=== PATIENT | male | born 1950 | race African-American/Black ===

== ENCOUNTER 2017-11-09 08:15 | Inpatient (IN) ==
[2017-11-09] MEDS ORDERED: MEPERIDINE 50 MG/1 ML VIAL IM STA (10:54)
[2017-11-09] MEDS ORDERED: MEPERIDINE 25 MG/1 ML VIAL ONE (10:56)
[2017-11-09 11:15] LABS: Basophils % 0.2 % (0.0-0.8); Eosinophils % 0.4 % (0.00-10.9); Hematocrit 40.5 VOL% (42.0-52.0); Hemoglobin 13.4 GM/DL (14.0-18.0); Immature Granulocytes % 0.3 %; Immature Granulocytes Absolute 0.03 #; Lymphocytes # 1.7 10*3/uL (1.4-4.0); Mean Corpuscular HGB Conc 33.1 GM/DL (32-36); Mean Corpuscular Hemoglobin 30 PG (27-34); Monocytes # 0.9 10*3/uL (0.11-0.8); Monocytes % 9.3 % (1.7-12.7); Neutrophils # 7.3 10*3/uL (1.4-7.4); Neutrophils % 72.8 % (38.7-73.9); Platelet Count 115 T/CUMM (130-400); Red Blood Count 4.45 MC/CUMM (3.8-5.5); Red Cell Distribution Width 14.3 % (9.3-17.3)
[2017-11-09 11:36] LABS: Albumin 3.4 G/DL (3.4-5.0); Bilirubin,Total 2.2 MG/DL (0.2-1.0); Calcium 8.8 MG/DL (8.5-10.1); Potassium 3.7 MMOL/L (3.5-5.1); Total Protein 7.4 G/DL (6.4-8.3)
[2017-11-09] MEDS ORDERED: GLUCAGON 1 MG VIAL IM PRN (13:07)
[2017-11-09] MEDS ORDERED: DEXTROSE 50% 25 GM/50 ML VIAL IV PRN (13:07)
[2017-11-09] MEDS: LEVOFLOXACIN INJ 750 MG in PREMIX 1 EACH IV SCH (14:26)
[2017-11-09] MEDS ORDERED: DOCUSATE SODIUM 100 MG CAPSULE PO PRN (15:27)
[2017-11-09] MEDS ORDERED: traZODone 50 MG TABLET PO PRN (15:27)
[2017-11-09] MEDS: MORPHINE 4 MG/1 ML VIAL IV PRN ×2 (16:03→21:30)
[2017-11-09] MEDS ORDERED: PHENOL 1.4% THROAT SPRAY 177 ML BOTTLE PO PRN (16:06)
[2017-11-09] MEDS: VANCOMYCIN INJ 1,500 MG in SODIUM CHLORIDE 0.9% 500 ML IV SCH (17:51)
[2017-11-09] MEDS: INSULIN REGULAR 100 UNIT/ML SUBCUT SCH ×2 (17:53→21:29)
[2017-11-09] MEDS: ENOXAPARIN 40 MG/0.4 ML SYRINGE SUBCUT SCH (21:30)
[2017-11-09] MEDS: ONDANSETRON 4 MG/2 ML VIAL IV PRN (21:35)
[2017-11-10] MEDS: VANCOMYCIN INJ 1,500 MG in SODIUM CHLORIDE 0.9% 500 ML IV SCH ×2 (03:29→18:31)
[2017-11-10] MEDS: ONDANSETRON 4 MG/2 ML VIAL IV PRN ×2 (06:22→22:00)
[2017-11-10] MEDS: MORPHINE 4 MG/1 ML VIAL IV PRN ×3 (06:26→21:56)
[2017-11-10] MEDS: GABAPENTIN 300 MG CAPSULE PO SCH (08:27)
[2017-11-10] MEDS: LISINOPRIL/HCTZ 20-25 MG TABLET PO SCH (08:27)
[2017-11-10] MEDS: PANTOPRAZOLE 40 MG TABLET PO SCH (08:27)
[2017-11-10] MEDS: FINASTERIDE 5 MG TABLET PO SCH (08:27)
[2017-11-10] MEDS ORDERED: BUPIVACAINE MPF 0.25% 30 ML VIAL ONE (08:36)
[2017-11-10] MEDS ORDERED: LIDOCAINE 1% 50 ML VIAL ONE (08:36)
[2017-11-10] MEDS ORDERED: Ritonavir [Norvir] 100 MG PO SCH (09:00)
[2017-11-10] MEDS ORDERED: ATAZANAVIR SULFATE 300 MG PO SCH (09:00)
[2017-11-10] MEDS ORDERED: Dolutegravir Sodium [Tivicay] PO SCH (09:00)
[2017-11-10] MEDS ORDERED: RILPIVIRINE HCL 25 MG PO SCH (09:00)
[2017-11-10 10:09] LABS: Basophils % 0.3 % (0.0-0.8); Eosinophils % 0.6 % (0.00-10.9); Hematocrit 41.4 VOL% (42.0-52.0); Immature Granulocytes % 0.4 %; Immature Granulocytes Absolute 0.03 #; Lymphocytes # 1.6 10*3/uL (1.4-4.0); Lymphocytes % 22.4 % (21.2-54.2); Mean Corpuscular HGB Conc 33.8 GM/DL (32-36); Mean Corpuscular Hemoglobin 30 PG (27-34); Mean Corpuscular Volume 89.4 FL (87-102); Mean Platelet Volume 13.6 FL (9.6-12.0); Monocytes # 0.7 10*3/uL (0.11-0.8); Monocytes % 9.7 % (1.7-12.7); Neutrophils # 4.7 10*3/uL (1.4-7.4); Neutrophils % 66.6 % (38.7-73.9); Platelet Count 126 T/CUMM (130-400); Red Blood Count 4.63 MC/CUMM (3.8-5.5); Red Cell Distribution Width 14.5 % (9.3-17.3); White Blood Count 7.1 T/CUMM (4-12)
[2017-11-10 10:46] LABS: Calcium 8.4 MG/DL (8.5-10.1); Osmolality,Calculated 284.3 MOS/KG (273-304); Potassium 4.1 MMOL/L (3.5-5.1); Thyroid Stimulating Hormone 3.55 uIU/ml (0.358-3.74)
[2017-11-10] MEDS: INSULIN REGULAR 100 UNIT/ML SUBCUT SCH ×4 (10:58→21:24)
[2017-11-10] MEDS ORDERED: MORPHINE 10 MG/1 ML VIAL IV PRN (12:30)
[2017-11-10] MEDS ORDERED: ONDANSETRON 4 MG/2 ML VIAL IV PRN (12:30)
[2017-11-10] MEDS ORDERED: PROPOFOL 200 MG/20 ML VIAL IV ONE (12:35)
[2017-11-10] MEDS ORDERED: fentaNYL 100 MCG/2 ML VIAL ONE (12:35)
[2017-11-10] MEDS ORDERED: MIDAZOLAM 2 MG/2 ML VIAL ONE (12:35)
[2017-11-10] MEDS ORDERED: SEVOFLURANE 1 UNIT/15 MINUTE INH ONE (12:35)
[2017-11-10] MEDS ORDERED: NIFEdipine 10 MG CAPSULE PO PRN (14:06)
[2017-11-10] MEDS: NICOTINE 14 MG/24 HR PATCH TRANSDERM SCH (14:25)
[2017-11-10] MEDS: LEVOFLOXACIN INJ 750 MG in PREMIX 1 EACH IV SCH (15:19)
[2017-11-10] MEDS: ENOXAPARIN 40 MG/0.4 ML SYRINGE SUBCUT SCH (21:25)
[2017-11-11] MEDS: VANCOMYCIN INJ 1,500 MG in SODIUM CHLORIDE 0.9% 500 ML IV SCH (03:53)
[2017-11-11 05:19] LABS: Basophils % 0.3 % (0.0-0.8); Eosinophils % 0.4 % (0.00-10.9); Hematocrit 40.7 VOL% (42.0-52.0); Hemoglobin 13.9 GM/DL (14.0-18.0); Immature Granulocytes % 0.7 %; Immature Granulocytes Absolute 0.05 #; Lymphocytes # 1.3 10*3/uL (1.4-4.0); Lymphocytes % 18.3 % (21.2-54.2); Mean Corpuscular HGB Conc 34.2 GM/DL (32-36); Mean Corpuscular Hemoglobin 30 PG (27-34); Mean Corpuscular Volume 88.1 FL (87-102); Mean Platelet Volume 13.4 FL (9.6-12.0); Monocytes # 0.7 10*3/uL (0.11-0.8); Monocytes % 9.6 % (1.7-12.7); Neutrophils # 5.1 10*3/uL (1.4-7.4); Neutrophils % 70.7 % (38.7-73.9); Platelet Count 117 T/CUMM (130-400); Red Blood Count 4.62 MC/CUMM (3.8-5.5); Red Cell Distribution Width 14.4 % (9.3-17.3); White Blood Count 7.2 T/CUMM (4-12)
[2017-11-11 05:41] LABS: Calcium 8.8 MG/DL (8.5-10.1); Osmolality,Calculated 279.7 MOS/KG (273-304); Potassium 3.7 MMOL/L (3.5-5.1)
[2017-11-11] MEDS: MORPHINE 4 MG/1 ML VIAL IV PRN ×3 (07:08→17:44)
[2017-11-11] MEDS: ONDANSETRON 4 MG/2 ML VIAL IV PRN (07:12)
[2017-11-11] MEDS: INSULIN REGULAR 100 UNIT/ML SUBCUT SCH ×4 (09:21→21:06)
[2017-11-11] MEDS: FINASTERIDE 5 MG TABLET PO SCH (09:29)
[2017-11-11] MEDS: NICOTINE 14 MG/24 HR PATCH TRANSDERM SCH (09:29)
[2017-11-11] MEDS: LISINOPRIL/HCTZ 20-25 MG TABLET PO SCH (09:29)
[2017-11-11] MEDS: GABAPENTIN 300 MG CAPSULE PO SCH (09:29)
[2017-11-11] MEDS: PANTOPRAZOLE 40 MG TABLET PO SCH (09:29)
[2017-11-11] MEDS ORDERED: SODIUM CHLORIDE 0.9% 1,000 ML IV ONE (11:00)
[2017-11-11] MEDS: LEVOFLOXACIN INJ 750 MG in PREMIX 1 EACH IV SCH (14:37)
[2017-11-11] MEDS: CIPROFLOXACIN 500 MG TABLET PO SCH ×2 (14:45→21:05)
[2017-11-11] MEDS: ENOXAPARIN 40 MG/0.4 ML SYRINGE SUBCUT SCH (21:06)
[2017-11-12] MEDS: MORPHINE 4 MG/1 ML VIAL IV PRN ×3 (01:15→10:57)
[2017-11-12 07:53] LABS: Calcium 8.5 MG/DL (8.5-10.1); Osmolality,Calculated 280.5 MOS/KG (273-304); Potassium 3.8 MMOL/L (3.5-5.1)
[2017-11-12 08:34] LABS: Basophils % 0.3 % (0.0-0.8); Eosinophils # 0.1 10*3/uL (0.0-0.87); Hematocrit 44.4 VOL% (42.0-52.0); Hemoglobin 15.1 GM/DL (14.0-18.0); Immature Granulocytes % 0.7 %; Immature Granulocytes Absolute 0.04 #; Lymphocytes # 1.8 10*3/uL (1.4-4.0); Lymphocytes % 29.3 % (21.2-54.2); Mean Corpuscular Hemoglobin 30 PG (27-34); Mean Corpuscular Volume 89.3 FL (87-102); Mean Platelet Volume 12.9 FL (9.6-12.0); Monocytes # 0.6 10*3/uL (0.11-0.8); Monocytes % 9.7 % (1.7-12.7); Neutrophils # 3.5 10*3/uL (1.4-7.4); Platelet Count 147 T/CUMM (130-400); Red Blood Count 4.97 MC/CUMM (3.8-5.5); Red Cell Distribution Width 14.6 % (9.3-17.3)
[2017-11-12 08:52] LABS: Platelet Estimate Adequate
[2017-11-12] MEDS: LISINOPRIL/HCTZ 20-25 MG TABLET PO SCH (09:35)
[2017-11-12] MEDS: CIPROFLOXACIN 500 MG TABLET PO SCH (09:35)
[2017-11-12] MEDS: NICOTINE 14 MG/24 HR PATCH TRANSDERM SCH (09:36)
[2017-11-12] MEDS: FINASTERIDE 5 MG TABLET PO SCH (09:36)
[2017-11-12] MEDS: GABAPENTIN 300 MG CAPSULE PO SCH (09:36)
[2017-11-12] MEDS: PANTOPRAZOLE 40 MG TABLET PO SCH (09:36)
[2017-11-12] MEDS: INSULIN REGULAR 100 UNIT/ML SUBCUT SCH ×2 (09:40→14:05)
[2017-11-12 12:12] VITALS: BP 161/94
== END 2017-11-12 13:50 | disposition home or self-care (01) | DRG 617 ==
LOC: N.ED 08:15 → SUATTDRO 11:41 → N.EDINP 11:41 → N.5E 12:48
PROVIDERS: ADMIT Internal Medicine; ATTEND Internal Medicine

== ENCOUNTER 2018-09-28 17:16 | Inpatient (IN) ==
[2018-09-28 18:10] LABS: Apearance,Urine Slightly Hazy (Clear); Bilirubin,Urine Negative (Negative); Blood, Urine Small mg/dL (Negative); Glucose,Urine (UA) Negative (Negative); Ketones,Urine Negative (Negative); Mucus,Urine Occasional /LPF (Occasional); Nitrite,Urine Negative (Negative); Protein,Urine 100 MG/DL; RBC,Urine 3 /HPF (0-4); Squamous Epithelial Cell,Urine Occasional /HPF (0-10); Urine Color Yellow (Yellow); Urine Specific Gravity 1.015 (1.001-1.035); WBC,Urine 1 /HPF (0-6)
[2018-09-28] MEDS ORDERED: cefTRIAXone 1,000 MG in SODIUM CHLORIDE 0.9% 100 ML IV STA (18:25)
[2018-09-28] MEDS ORDERED: AZITHROMYCIN INJ 500 MG in SODIUM CHLORIDE 0.9% 250 ML IV STA (18:25)
[2018-09-28] MEDS ORDERED: MORPHINE 4 MG/1 ML VIAL IV STA (18:26)
[2018-09-28] MEDS ORDERED: ONDANSETRON 4 MG/2 ML VIAL IV STA (18:26)
[2018-09-28] MEDS ORDERED: ALBUTEROL/IPRATROPIUM 3 ML NEB RESP TX STA (18:27)
[2018-09-28 19:20] LABS: Basophils % 0.5 % (0.0-0.8); Eosinophils % 0.7 % (0.00-10.9); Hematocrit 39.2 VOL% (42.0-52.0); Hemoglobin 12.4 GM/DL (14.0-18.0); Immature Granulocytes % 0.4 %; Immature Granulocytes Absolute 0.02 #; Lymphocytes # 1.6 10*3/uL (1.4-4.0); Lymphocytes % 28.2 % (21.2-54.2); Mean Corpuscular HGB Conc 31.6 GM/DL (32-36); Mean Corpuscular Volume 88.7 FL (87-102); Mean Platelet Volume 12.6 FL (9.6-12.0); Monocytes % 8.5 % (1.7-12.7); Neutrophils % 61.7 % (38.7-73.9); Platelet Count 173 T/CUMM (130-400); Red Blood Count 4.42 MC/CUMM (3.8-5.5); Red Cell Distribution Width 14.9 % (9.3-17.3); White Blood Count 5.5 T/CUMM (4-12)
[2018-09-28 19:46] LABS: Albumin 3.7 G/DL (3.4-5.0); Bilirubin,Total 1.9 MG/DL (0.2-1.0); Calcium 8.6 MG/DL (8.5-10.1); Osmolality,Calculated 275.7 MOS/KG (273-304); Total Protein 7.6 G/DL (6.4-8.3)
[2018-09-28] MEDS ORDERED: LACTATED RINGERS 1,000 ML IV ONE (20:02)
[2018-09-28] MEDS ORDERED: KETOROLAC 30 MG/1 ML VIAL IV STA (20:18)
[2018-09-28] MEDS ORDERED: ACETAMINOPHEN 500 MG TABLET PO STA (20:19)
[2018-09-28] MEDS ORDERED: DEXTROSE 50% 25 GM/50 ML SYRINGE IV PRN (21:13)
[2018-09-28] MEDS ORDERED: NICOTINE 21 MG/24 HR PATCH TRANSDERM PRN ×2 (21:13→22:15)
[2018-09-28] MEDS ORDERED: methylPREDNISolone SOD SUC 125 MG/2 ML VIAL IV STA (21:13)
[2018-09-28] MEDS ORDERED: ACETAMINOPHEN 325 MG TABLET PO PRN (21:13)
[2018-09-28] MEDS ORDERED: GLUCAGON 1 MG VIAL IM PRN (21:13)
[2018-09-28] MEDS ORDERED: diphenhydrAMINE CAP 25 MG CAPSULE PO PRN (21:13)
[2018-09-28] MEDS ORDERED: AZITHROMYCIN INJ 500 MG in SODIUM CHLORIDE 0.9% 250 ML IV SCH (21:30)
[2018-09-28] MEDS: INSULIN REGULAR 100 UNIT/ML SUBCUT SCH (22:40)
[2018-09-28] MEDS: MORPHINE 4 MG/1 ML VIAL IV PRN (23:02)
[2018-09-28] MEDS: ALBUTEROL/IPRATROPIUM 3 ML NEB RESP TX SCH (23:05)
[2018-09-29] MEDS: ALBUTEROL/IPRATROPIUM 3 ML NEB RESP TX SCH ×4 (00:56→19:26)
[2018-09-29 05:51] LABS: Hematocrit 37.8 VOL% (42.0-52.0); Hemoglobin 12.2 GM/DL (14.0-18.0); Immature Granulocytes % 0.7 %; Immature Granulocytes Absolute 0.02 #; Lymphocytes # 0.3 10*3/uL (1.4-4.0); Lymphocytes % 12.6 % (21.2-54.2); Mean Corpuscular HGB Conc 32.3 GM/DL (32-36); Mean Corpuscular Volume 87.5 FL (87-102); Mean Platelet Volume 13.1 FL (9.6-12.0); Monocytes % 1.1 % (1.7-12.7); Neutrophils % 85.6 % (38.7-73.9); Platelet Count 170 T/CUMM (130-400); Red Blood Count 4.32 MC/CUMM (3.8-5.5); Red Cell Distribution Width 14.8 % (9.3-17.3); White Blood Count 2.7 T/CUMM (4-12)
[2018-09-29] MEDS ORDERED: cefTRIAXone 1,000 MG in SYRINGE 1 EACH IV SCH (06:00)
[2018-09-29 07:10] LABS: Ovalocytes Slight
[2018-09-29 07:11] LABS: Hypochromasia 1+; Microcytosis Slight; Platelet Estimate Adequate
[2018-09-29] MEDS: methylPREDNISolone SOD SUC 40 MG/1 ML VIAL IV SCH ×2 (09:32→21:23)
[2018-09-29] MEDS: PANTOPRAZOLE 40 MG TABLET PO SCH (09:32)
[2018-09-29] MEDS: INSULIN REGULAR 100 UNIT/ML SUBCUT SCH ×4 (09:32→21:24)
[2018-09-29] MEDS: MORPHINE 4 MG/1 ML VIAL IV PRN (11:51)
[2018-09-29] MEDS: POTASSIUM CHLORIDE 10 MEQ TABLET PO SCH ×2 (16:04→21:21)
[2018-09-29] MEDS ORDERED: AZITHROMYCIN INJ 500 MG in SODIUM CHLORIDE 0.9% 250 ML IV SCH (21:00)
[2018-09-29] MEDS ORDERED: NON-FORMULARY MEDICATION (Varenicline Tartrate [Chantix Starter Month Pack] 1 EACH) PO SCH (21:00)
[2018-09-29] MEDS: PREGABALIN 100 MG CAPSULE PO SCH (21:21)
[2018-09-29] MEDS: CYPROHEPTADINE 4 MG TABLET PO SCH (21:21)
[2018-09-29] MEDS: MORPHINE ER 15 MG TABLET PO SCH (21:22)
[2018-09-29] MEDS: guaiFENesin/DM ER 600-30 MG TABLET PO PRN (21:22)
[2018-09-29] MEDS: AZITHROMYCIN INJ 500 MG in SODIUM CHLORIDE 0.9% 250 ML IV SCH (21:28)
[2018-09-30] MEDS: ALBUTEROL/IPRATROPIUM 3 ML NEB RESP TX SCH ×4 (00:55→19:25)
[2018-09-30 06:07] LABS: Basophils % 0.1 % (0.0-0.8); Hematocrit 35.8 VOL% (42.0-52.0); Hemoglobin 11.7 GM/DL (14.0-18.0); Immature Granulocytes % 0.6 %; Immature Granulocytes Absolute 0.06 #; Lymphocytes # 0.6 10*3/uL (1.4-4.0); Mean Corpuscular HGB Conc 32.7 GM/DL (32-36); Mean Corpuscular Volume 86.3 FL (87-102); Mean Platelet Volume 13.2 FL (9.6-12.0); Monocytes % 2.5 % (1.7-12.7); Neutrophils % 90.8 % (38.7-73.9); Platelet Count 160 T/CUMM (130-400); Red Blood Count 4.15 MC/CUMM (3.8-5.5)
[2018-09-30 06:22] LABS: Calcium 8.4 MG/DL (8.5-10.1); Osmolality,Calculated 288.5 MOS/KG (273-304)
[2018-09-30 07:50] LABS: Lymphocytes 2 % (20-55); Segmented Neutrophils 98 % (50-85); Total Cells Counted 100
[2018-09-30 07:51] LABS: Elliptocytes Few; Ovalocytes Few; Platelet Estimate Adequate; Polychromasia Few
[2018-09-30] MEDS: FLUoxetine 20 MG CAPSULE PO SCH (08:04)
[2018-09-30] MEDS: CYPROHEPTADINE 4 MG TABLET PO SCH ×2 (08:04→21:08)
[2018-09-30] MEDS: POTASSIUM CHLORIDE 10 MEQ TABLET PO SCH ×3 (08:04→21:07)
[2018-09-30] MEDS: methylPREDNISolone SOD SUC 40 MG/1 ML VIAL IV SCH ×2 (08:05→21:09)
[2018-09-30] MEDS: PANTOPRAZOLE 40 MG TABLET PO SCH (08:05)
[2018-09-30] MEDS: MORPHINE ER 15 MG TABLET PO SCH ×2 (08:05→21:07)
[2018-09-30] MEDS: INSULIN REGULAR 100 UNIT/ML SUBCUT SCH ×4 (08:05→21:10)
[2018-09-30] MEDS: PREGABALIN 100 MG CAPSULE PO SCH ×2 (08:05→21:07)
[2018-09-30] MEDS: CETIRIZINE 10 MG TABLET PO SCH (08:05)
[2018-09-30] MEDS: Dolutegravir Sodium [Tivicay] 50 MG PO SCH (08:07)
[2018-09-30] MEDS: Ritonavir [Norvir] 100 MG PO SCH (08:08)
[2018-09-30] MEDS: RILPIVIRINE HCL 25 MG PO SCH (08:08)
[2018-09-30] MEDS: ATAZANAVIR SULFATE 300 MG PO SCH (08:08)
[2018-09-30] MEDS: cefTRIAXone 1,000 MG in SYRINGE 1 EACH IV SCH (08:14)
[2018-09-30] MEDS ORDERED: LOSARTAN/HCTZ 50-12.5 MG TABLET PO SCH (09:00)
[2018-09-30] MEDS ORDERED: cefTRIAXone 1,000 MG in SYRINGE 1 EACH IV SCH (09:00)
[2018-09-30] MEDS: MORPHINE 4 MG/1 ML VIAL IV PRN (10:48)
[2018-09-30] MEDS: INSULIN GLARGINE 100 UNIT/ML SUBCUT SCH (12:13)
[2018-09-30] MEDS: SODIUM CHLORIDE 0.9% 1,000 ML IV SCH (12:16)
[2018-09-30] MEDS: AZITHROMYCIN INJ 500 MG in SODIUM CHLORIDE 0.9% 250 ML IV SCH (21:08)
[2018-09-30] MEDS: guaiFENesin/DM ER 600-30 MG TABLET PO PRN (21:08)
[2018-10-01] MEDS: ALBUTEROL/IPRATROPIUM 3 ML NEB RESP TX SCH ×5 (00:53→19:10)
[2018-10-01 06:19] LABS: Basophils % 0.1 % (0.0-0.8); Hematocrit 38.6 VOL% (42.0-52.0); Hemoglobin 12.2 GM/DL (14.0-18.0); Immature Granulocytes % 0.7 %; Immature Granulocytes Absolute 0.06 #; Lymphocytes # 0.5 10*3/uL (1.4-4.0); Lymphocytes % 5.3 % (21.2-54.2); Mean Corpuscular HGB Conc 31.6 GM/DL (32-36); Mean Corpuscular Volume 88.9 FL (87-102); Mean Platelet Volume 13.1 FL (9.6-12.0); Monocytes % 2.9 % (1.7-12.7); Platelet Count 169 T/CUMM (130-400); Red Blood Count 4.34 MC/CUMM (3.8-5.5); Red Cell Distribution Width 15.4 % (9.3-17.3); White Blood Count 8.9 T/CUMM (4-12)
[2018-10-01 06:45] LABS: Calcium 8.5 MG/DL (8.5-10.1)
[2018-10-01 07:27] LABS: Anisocytosis Slight; Band Neutrophils 1 % (0-10); Lymphocytes 7 % (20-55); Platelet Estimate Normal; Poikilocytosis Slight; Segmented Neutrophils 91 % (50-85); Total Cells Counted 100
[2018-10-01] MEDS: SODIUM CHLORIDE 0.9% 1,000 ML IV SCH ×2 (08:04→11:11)
[2018-10-01 08:36] LABS: % CD4 (T Cells) 20 % (32-64); % CD8 (T Cells) 33 % (8-40); 4/8 Ratio 0.6 (>=0.9)
[2018-10-01] MEDS: INSULIN GLARGINE 100 UNIT/ML SUBCUT SCH (09:58)
[2018-10-01] MEDS: cefTRIAXone 1,000 MG in SYRINGE 1 EACH IV SCH (09:58)
[2018-10-01] MEDS: methylPREDNISolone SOD SUC 40 MG/1 ML VIAL IV SCH (09:59)
[2018-10-01] MEDS: INSULIN REGULAR 100 UNIT/ML SUBCUT SCH ×4 (09:59→20:54)
[2018-10-01] MEDS: MORPHINE ER 15 MG TABLET PO SCH ×2 (09:59→20:53)
[2018-10-01] MEDS: CYPROHEPTADINE 4 MG TABLET PO SCH ×2 (10:00→20:52)
[2018-10-01] MEDS: PANTOPRAZOLE 40 MG TABLET PO SCH (10:01)
[2018-10-01] MEDS: BISACODYL 5 MG TABLET PO PRN (10:01)
[2018-10-01] MEDS: PREGABALIN 100 MG CAPSULE PO SCH ×2 (10:01→20:54)
[2018-10-01] MEDS: guaiFENesin/DM ER 600-30 MG TABLET PO PRN (10:01)
[2018-10-01] MEDS: FLUoxetine 20 MG CAPSULE PO SCH (10:02)
[2018-10-01] MEDS: RILPIVIRINE HCL 25 MG PO SCH (10:04)
[2018-10-01] MEDS: Dolutegravir Sodium [Tivicay] 50 MG PO SCH (10:05)
[2018-10-01] MEDS: ATAZANAVIR SULFATE 300 MG PO SCH (10:05)
[2018-10-01] MEDS: Ritonavir [Norvir] 100 MG PO SCH (10:05)
[2018-10-01] MEDS: CETIRIZINE 10 MG TABLET PO SCH (10:20)
[2018-10-01] MEDS: POTASSIUM CHLORIDE 10 MEQ TABLET PO SCH ×3 (11:23→20:52)
[2018-10-01] MEDS: AZITHROMYCIN 250 MG TABLET PO SCH (12:24)
[2018-10-01] MEDS: LOSARTAN/HCTZ 50-12.5 MG TABLET PO SCH (12:24)
[2018-10-01] MEDS: SODIUM CHLORIDE 0.65% NASAL SPRAY 45 ML BOTTLE BOTH NARES SCH ×2 (16:16→20:52)
[2018-10-01] MEDS ORDERED: FUROSEMIDE 40 MG/4 ML VIAL IV ONE (16:29)
[2018-10-01] MEDS: ZALEPLON 5 MG CAPSULE PO PRN (20:52)
[2018-10-01] MEDS: predniSONE 10 MG TABLET PO SCH (20:52)
[2018-10-01] MEDS: hydrALAZINE 25 MG TABLET PO SCH (22:36)
[2018-10-02] MEDS: ALBUTEROL/IPRATROPIUM 3 ML NEB RESP TX SCH ×4 (00:26→19:08)
[2018-10-02] MEDS: SODIUM CHLORIDE 0.9% 1,000 ML IV SCH (05:56)
[2018-10-02 06:26] LABS: Calcium 8.5 MG/DL (8.5-10.1); Osmolality,Calculated 295.1 MOS/KG (273-304)
[2018-10-02] MEDS: INSULIN GLARGINE 100 UNIT/ML SUBCUT SCH (09:10)
[2018-10-02] MEDS: INSULIN REGULAR 100 UNIT/ML SUBCUT SCH ×4 (09:10→21:18)
[2018-10-02] MEDS: FLUoxetine 20 MG CAPSULE PO SCH (09:11)
[2018-10-02] MEDS: PREGABALIN 100 MG CAPSULE PO SCH ×2 (09:11→21:14)
[2018-10-02] MEDS: LOSARTAN/HCTZ 50-12.5 MG TABLET PO SCH (09:11)
[2018-10-02] MEDS: hydrALAZINE 25 MG TABLET PO SCH ×3 (09:11→21:14)
[2018-10-02] MEDS: CYPROHEPTADINE 4 MG TABLET PO SCH ×2 (09:11→21:14)
[2018-10-02] MEDS: CETIRIZINE 10 MG TABLET PO SCH (09:12)
[2018-10-02] MEDS: MORPHINE ER 15 MG TABLET PO SCH ×2 (09:12→21:14)
[2018-10-02] MEDS: cefTRIAXone 1,000 MG in SYRINGE 1 EACH IV SCH (09:14)
[2018-10-02] MEDS: POTASSIUM CHLORIDE 10 MEQ TABLET PO SCH ×2 (09:18→14:29)
[2018-10-02] MEDS: RILPIVIRINE HCL 25 MG PO SCH (09:18)
[2018-10-02] MEDS: SODIUM CHLORIDE 0.65% NASAL SPRAY 45 ML BOTTLE BOTH NARES SCH ×4 (09:18→21:28)
[2018-10-02] MEDS: PANTOPRAZOLE 40 MG TABLET PO SCH (09:18)
[2018-10-02] MEDS: predniSONE 10 MG TABLET PO SCH ×2 (09:18→21:14)
[2018-10-02] MEDS: Dolutegravir Sodium [Tivicay] 50 MG PO SCH (09:19)
[2018-10-02] MEDS: ATAZANAVIR SULFATE 300 MG PO SCH (09:19)
[2018-10-02] MEDS: Ritonavir [Norvir] 100 MG PO SCH (09:19)
[2018-10-02] MEDS: AZITHROMYCIN 250 MG TABLET PO SCH (12:10)
[2018-10-02] MEDS: LIDOCAINE 5% PATCH TRANSDERM SCH (12:10)
[2018-10-02] MEDS: NIFEdipine 10 MG CAPSULE PO SCH ×2 (14:29→21:14)
[2018-10-02] MEDS ORDERED: SULFAMETHOX/TRIMETHOPRIM 800-160 MG TABLET PO SCH (21:00)
[2018-10-02] MEDS: ZALEPLON 5 MG CAPSULE PO PRN (21:14)
[2018-10-03] MEDS: ALBUTEROL/IPRATROPIUM 3 ML NEB RESP TX SCH ×4 (01:00→19:43)
[2018-10-03] MEDS ORDERED: ALBUTEROL 2.5 MG/3 ML NEB RESP TX ONE (03:00)
[2018-10-03] MEDS ORDERED: ALBUTEROL 2.5 MG/3 ML NEB RESP TX PRN (03:15)
[2018-10-03 03:16] LABS: ABG Base Excess -1.9 MMOL/L (-2.5-2.5); ABG HCO3 22.7 MMOL/L (20-26); ABG Oxygen Saturation 91.7 % (95-100); ABG PCO2 36.9 MM HG (35-48); ABG PH 7.395 (7.35-7.45); ABG PO2 65.8 MM HG (80-95); ABG TCO2 19.6 MMOL/L (23-27)
[2018-10-03 03:38] LABS: Basophils % 0.2 % (0.0-0.8); Hematocrit 42.3 VOL% (42.0-52.0); Hemoglobin 13.3 GM/DL (14.0-18.0); Immature Granulocytes % 0.6 %; Immature Granulocytes Absolute 0.05 #; Lymphocytes # 0.9 10*3/uL (1.4-4.0); Lymphocytes % 9.4 % (21.2-54.2); Mean Corpuscular HGB Conc 31.4 GM/DL (32-36); Mean Corpuscular Volume 88.5 FL (87-102); Mean Platelet Volume 12.7 FL (9.6-12.0); Monocytes % 12.3 % (1.7-12.7); Neutrophils % 77.5 % (38.7-73.9); Platelet Count 179 T/CUMM (130-400); Red Blood Count 4.78 MC/CUMM (3.8-5.5); Red Cell Distribution Width 15.4 % (9.3-17.3); White Blood Count 9.1 T/CUMM (4-12)
[2018-10-03 04:05] LABS: Calcium 8.2 MG/DL (8.5-10.1)
[2018-10-03] MEDS: ALBUTEROL 2.5 MG/3 ML NEB RESP TX PRN (07:20)
[2018-10-03] MEDS: INSULIN REGULAR 100 UNIT/ML SUBCUT SCH ×4 (08:34→22:13)
[2018-10-03] MEDS: INSULIN GLARGINE 100 UNIT/ML SUBCUT SCH (08:52)
[2018-10-03] MEDS: cefTRIAXone 1,000 MG in SYRINGE 1 EACH IV SCH (08:53)
[2018-10-03] MEDS: SODIUM CHLORIDE 0.65% NASAL SPRAY 45 ML BOTTLE BOTH NARES SCH ×4 (08:53→22:13)
[2018-10-03] MEDS: ENOXAPARIN 40 MG/0.4 ML SYRINGE SUBCUT SCH (09:52)
[2018-10-03] MEDS: methylPREDNISolone SOD SUC 40 MG/1 ML VIAL IV SCH ×2 (13:03→18:06)
[2018-10-03] MEDS: LIDOCAINE 5% PATCH TRANSDERM SCH (14:18)
[2018-10-03] MEDS: ATAZANAVIR SULFATE 300 MG PO SCH (17:47)
[2018-10-03] MEDS: hydrALAZINE 25 MG TABLET PO SCH ×2 (17:47→21:35)
[2018-10-03] MEDS: PREGABALIN 100 MG CAPSULE PO SCH ×2 (17:48→21:35)
[2018-10-03] MEDS: LOSARTAN/HCTZ 50-12.5 MG TABLET PO SCH (17:48)
[2018-10-03] MEDS: Dolutegravir Sodium [Tivicay] 50 MG PO SCH (17:48)
[2018-10-03] MEDS: SULFAMETHOX/TRIMETHOPRIM 800-160 MG TABLET PO SCH ×2 (17:48→21:34)
[2018-10-03] MEDS: MORPHINE ER 15 MG TABLET PO SCH ×2 (17:49→21:34)
[2018-10-03] MEDS: NIFEdipine 10 MG CAPSULE PO SCH ×2 (17:49→21:34)
[2018-10-03] MEDS: CYPROHEPTADINE 4 MG TABLET PO SCH ×2 (17:49→21:34)
[2018-10-03] MEDS: FLUoxetine 20 MG CAPSULE PO SCH (17:50)
[2018-10-03] MEDS: AZITHROMYCIN 250 MG TABLET PO SCH (17:50)
[2018-10-03] MEDS: PANTOPRAZOLE 40 MG TABLET PO SCH (17:50)
[2018-10-03] MEDS: RILPIVIRINE HCL 25 MG PO SCH (17:50)
[2018-10-03] MEDS: CETIRIZINE 10 MG TABLET PO SCH (17:50)
[2018-10-03] MEDS: Ritonavir [Norvir] 100 MG PO SCH (17:50)
[2018-10-03] MEDS: predniSONE 10 MG TABLET PO SCH (17:51)
[2018-10-03] MEDS: MORPHINE 4 MG/1 ML VIAL IV PRN (18:07)
[2018-10-04] MEDS: ALBUTEROL/IPRATROPIUM 3 ML NEB RESP TX SCH ×4 (02:02→19:28)
[2018-10-04] MEDS: MORPHINE 4 MG/1 ML VIAL IV PRN ×4 (02:26→21:36)
[2018-10-04] MEDS: methylPREDNISolone SOD SUC 40 MG/1 ML VIAL IV SCH ×3 (02:41→18:22)
[2018-10-04 06:14] LABS: Basophils % 0.1 % (0.0-0.8); Hematocrit 41.1 VOL% (42.0-52.0); Hemoglobin 13.7 GM/DL (14.0-18.0); Immature Granulocytes % 0.8 %; Immature Granulocytes Absolute 0.09 #; Lymphocytes # 0.5 10*3/uL (1.4-4.0); Lymphocytes % 4.2 % (21.2-54.2); Mean Corpuscular HGB Conc 33.3 GM/DL (32-36); Mean Corpuscular Volume 86.3 FL (87-102); Mean Platelet Volume 13.3 FL (9.6-12.0); Monocytes % 2.3 % (1.7-12.7); Neutrophils % 92.6 % (38.7-73.9); Platelet Count 168 T/CUMM (130-400); Red Blood Count 4.76 MC/CUMM (3.8-5.5); Red Cell Distribution Width 15.7 % (9.3-17.3); White Blood Count 11.6 T/CUMM (4-12)
[2018-10-04 06:31] LABS: Calcium 8.4 MG/DL (8.5-10.1); Osmolality,Calculated 308.8 MOS/KG (273-304)
[2018-10-04 06:36] LABS: Prealbumin 19.4 MG/DL (20-40)
[2018-10-04 06:52] LABS: Lymphocytes 3 % (20-55); Platelet Estimate Decreased; Segmented Neutrophils 96 % (50-85); Total Cells Counted 100
[2018-10-04] MEDS: INSULIN REGULAR 100 UNIT/ML SUBCUT SCH ×4 (08:47→21:32)
[2018-10-04] MEDS: INSULIN GLARGINE 100 UNIT/ML SUBCUT SCH (08:47)
[2018-10-04] MEDS: ENOXAPARIN 40 MG/0.4 ML SYRINGE SUBCUT SCH (08:47)
[2018-10-04] MEDS: cefTRIAXone 1,000 MG in SYRINGE 1 EACH IV SCH (08:48)
[2018-10-04] MEDS: SODIUM CHLORIDE 0.65% NASAL SPRAY 45 ML BOTTLE BOTH NARES SCH ×4 (08:52→22:29)
[2018-10-04] MEDS: Ritonavir [Norvir] 100 MG PO SCH (08:54)
[2018-10-04] MEDS: ATAZANAVIR SULFATE 300 MG PO SCH (08:54)
[2018-10-04] MEDS: Dolutegravir Sodium [Tivicay] 50 MG PO SCH (08:54)
[2018-10-04] MEDS: RILPIVIRINE HCL 25 MG PO SCH (08:55)
[2018-10-04] MEDS: LOSARTAN/HCTZ 50-12.5 MG TABLET PO SCH (08:56)
[2018-10-04] MEDS: SULFAMETHOX/TRIMETHOPRIM 800-160 MG TABLET PO SCH ×3 (08:56→21:12)
[2018-10-04] MEDS: BISACODYL 5 MG TABLET PO PRN (08:57)
[2018-10-04] MEDS: hydrALAZINE 25 MG TABLET PO SCH ×3 (08:58→21:11)
[2018-10-04] MEDS: CETIRIZINE 10 MG TABLET PO SCH (08:58)
[2018-10-04] MEDS: PREGABALIN 100 MG CAPSULE PO SCH ×2 (08:58→21:13)
[2018-10-04] MEDS: NIFEdipine 10 MG CAPSULE PO SCH ×2 (08:59→15:57)
[2018-10-04] MEDS: MORPHINE ER 15 MG TABLET PO SCH ×2 (08:59→21:13)
[2018-10-04] MEDS: PANTOPRAZOLE 40 MG TABLET PO SCH (08:59)
[2018-10-04] MEDS: CYPROHEPTADINE 4 MG TABLET PO SCH ×2 (09:00→21:12)
[2018-10-04] MEDS: FLUoxetine 20 MG CAPSULE PO SCH (11:04)
[2018-10-04] MEDS: LIDOCAINE 5% PATCH TRANSDERM SCH (12:30)
[2018-10-04] MEDS: AZITHROMYCIN 250 MG TABLET PO SCH (12:33)
[2018-10-04] MEDS ORDERED: NIFEdipine 10 MG CAPSULE PO SCH (15:15)
[2018-10-04] MEDS: SODIUM CHLORIDE 0.9% 1,000 ML IV SCH (16:07)
[2018-10-04] MEDS ORDERED: BISACODYL 10 MG SUPP RECTAL PRN (17:05)
[2018-10-04] MEDS ORDERED: SODIUM PHOSPHATE ENEMA 133 ML BOTTLE RECTAL PRN (17:06)
[2018-10-04] MEDS ORDERED: DOCUSATE SODIUM 100 MG/10 ML UDCUP PO SCH (21:00)
[2018-10-04] MEDS: ONDANSETRON 4 MG/2 ML VIAL IV PRN (23:33)
[2018-10-05] MEDS: ALBUTEROL/IPRATROPIUM 3 ML NEB RESP TX SCH ×4 (00:50→19:26)
[2018-10-05] MEDS: MORPHINE 4 MG/1 ML VIAL IV PRN ×5 (01:59→20:55)
[2018-10-05] MEDS: ALBUTEROL 2.5 MG/3 ML NEB RESP TX PRN (03:17)
[2018-10-05] MEDS: methylPREDNISolone SOD SUC 40 MG/1 ML VIAL IV SCH ×3 (04:45→20:53)
[2018-10-05] MEDS: SODIUM CHLORIDE 0.9% 1,000 ML IV SCH (04:48)
[2018-10-05 06:04] LABS: Calcium 8.2 MG/DL (8.5-10.1)
[2018-10-05] MEDS: INSULIN REGULAR 100 UNIT/ML SUBCUT SCH ×4 (07:30→20:56)
[2018-10-05] MEDS ORDERED: ACETAMINOPHEN 650 MG SUPP RECTAL PRN (08:00)
[2018-10-05] MEDS ORDERED: cloNIDine 0.3 MG/24 HR PATCH TRANSDERM SCH (09:00)
[2018-10-05] MEDS: ONDANSETRON 4 MG/2 ML VIAL IV PRN ×2 (10:14→16:52)
[2018-10-05] MEDS: PANTOPRAZOLE 40 MG VIAL IV SCH ×2 (10:17→20:51)
[2018-10-05] MEDS: SODIUM CHLORIDE 0.65% NASAL SPRAY 45 ML BOTTLE BOTH NARES SCH ×4 (10:21→20:55)
[2018-10-05] MEDS: ENOXAPARIN 40 MG/0.4 ML SYRINGE SUBCUT SCH (10:21)
[2018-10-05] MEDS: cefTRIAXone 1,000 MG in SYRINGE 1 EACH IV SCH (10:22)
[2018-10-05] MEDS: DEXTROSE 5% LACTATED RINGERS 1,000 ML IV SCH ×3 (10:28→21:02)
[2018-10-05] MEDS: LIDOCAINE 5% PATCH TRANSDERM SCH (13:22)
[2018-10-06] MEDS: MORPHINE 4 MG/1 ML VIAL IV PRN ×2 (01:23→18:43)
[2018-10-06] MEDS: ALBUTEROL/IPRATROPIUM 3 ML NEB RESP TX SCH ×5 (02:10→19:30)
[2018-10-06] MEDS: methylPREDNISolone SOD SUC 40 MG/1 ML VIAL IV SCH ×3 (04:31→18:38)
[2018-10-06 06:20] LABS: Basophils % 0.2 % (0.0-0.8); Hematocrit 41.2 VOL% (42.0-52.0); Hemoglobin 13.1 GM/DL (14.0-18.0); Immature Granulocytes % 1.7 %; Immature Granulocytes Absolute 0.21 #; Lymphocytes # 0.5 10*3/uL (1.4-4.0); Lymphocytes % 3.8 % (21.2-54.2); Mean Corpuscular HGB Conc 31.8 GM/DL (32-36); Mean Corpuscular Volume 87.5 FL (87-102); Mean Platelet Volume 13.4 FL (9.6-12.0); Monocytes % 3.3 % (1.7-12.7); Platelet Count 186 T/CUMM (130-400); Red Blood Count 4.71 MC/CUMM (3.8-5.5); Red Cell Distribution Width 15.8 % (9.3-17.3); White Blood Count 12.6 T/CUMM (4-12)
[2018-10-06 06:27] LABS: Calcium 8.6 MG/DL (8.5-10.1); Osmolality,Calculated 311.8 MOS/KG (273-304)
[2018-10-06] MEDS ORDERED: PROMETHAZINE 25 MG/1 ML VIAL IM ONE (06:30)
[2018-10-06] MEDS ORDERED: MEPERIDINE 50 MG/1 ML VIAL IM ONE (06:30)
[2018-10-06 06:48] LABS: Lymphocytes 3 % (20-55); Platelet Estimate Decreased; Segmented Neutrophils 97 % (50-85); Total Cells Counted 100
[2018-10-06] MEDS ORDERED: LIDOCAINE 2% VISCOUS 100 ML BOTTLE SWISH/SPIT ONE (07:00)
[2018-10-06] MEDS ORDERED: LIDOCAINE 2% 20 ML VIAL RESP TX ONE (07:00)
[2018-10-06] MEDS ORDERED: LIDOCAINE 1% 20 ML VIAL MISC INJ ONE (07:00)
[2018-10-06] MEDS ORDERED: MIDAZOLAM 2 MG/2 ML VIAL IV ONE (07:00)
[2018-10-06] MEDS ORDERED: MIDAZOLAM 2 MG/2 ML VIAL ONE (07:01)
[2018-10-06] MEDS: ENOXAPARIN 40 MG/0.4 ML SYRINGE SUBCUT SCH (09:37)
[2018-10-06] MEDS: PANTOPRAZOLE 40 MG VIAL IV SCH ×2 (09:38→21:43)
[2018-10-06] MEDS: SODIUM CHLORIDE 0.65% NASAL SPRAY 45 ML BOTTLE BOTH NARES SCH ×4 (09:40→21:43)
[2018-10-06] MEDS ORDERED: LIDOCAINE 2% 5 ML VIAL ONE (10:00)
[2018-10-06] MEDS ORDERED: PROPOFOL 200 MG/20 ML VIAL IV ONE (10:00)
[2018-10-06] MEDS: INSULIN REGULAR 100 UNIT/ML SUBCUT SCH ×4 (10:56→21:43)
[2018-10-06] MEDS ORDERED: BENZOCAINE 20% SPRAY 57 GM CAN TOP ONE (11:02)
[2018-10-06] MEDS: SODIUM CHLORIDE 0.9% 1,000 ML IV SCH (12:09)
[2018-10-06] MEDS: cefTRIAXone 1,000 MG in SYRINGE 1 EACH IV SCH (13:35)
[2018-10-06] MEDS: LIDOCAINE 5% PATCH TRANSDERM SCH (13:38)
[2018-10-06] MEDS: DEXTROSE 5% LACTATED RINGERS 1,000 ML IV SCH ×2 (17:00→17:40)
[2018-10-06] MEDS: FLUCONAZOLE INJ 100 MG in IV BAG 1 EACH IV SCH (17:00)
[2018-10-07] MEDS: ALBUTEROL/IPRATROPIUM 3 ML NEB RESP TX SCH ×4 (00:10→19:12)
[2018-10-07] MEDS: MORPHINE 4 MG/1 ML VIAL IV PRN ×3 (00:53→15:17)
[2018-10-07] MEDS: methylPREDNISolone SOD SUC 40 MG/1 ML VIAL IV SCH ×3 (03:27→18:21)
[2018-10-07 04:23] LABS: Basophils % 0.1 % (0.0-0.8); Hematocrit 41.5 VOL% (42.0-52.0); Hemoglobin 13.4 GM/DL (14.0-18.0); Immature Granulocytes % 1.8 %; Immature Granulocytes Absolute 0.16 #; Lymphocytes # 0.4 10*3/uL (1.4-4.0); Mean Corpuscular HGB Conc 32.3 GM/DL (32-36); Mean Corpuscular Volume 87.2 FL (87-102); Mean Platelet Volume 13.7 FL (9.6-12.0); Monocytes % 5.9 % (1.7-12.7); Neutrophils % 87.2 % (38.7-73.9); Platelet Count 172 T/CUMM (130-400); Red Blood Count 4.76 MC/CUMM (3.8-5.5); Red Cell Distribution Width 15.8 % (9.3-17.3); White Blood Count 8.8 T/CUMM (4-12)
[2018-10-07] MEDS: DEXTROSE 5% LACTATED RINGERS 1,000 ML IV SCH ×2 (04:23→17:23)
[2018-10-07] MEDS: hydrALAZINE 20 MG/1 ML VIAL IV PRN ×2 (04:24→12:48)
[2018-10-07 04:53] LABS: Calcium 8.2 MG/DL (8.5-10.1); Osmolality,Calculated 300.3 MOS/KG (273-304)
[2018-10-07] MEDS: INSULIN REGULAR 100 UNIT/ML SUBCUT SCH ×4 (09:00→20:27)
[2018-10-07] MEDS: cefTRIAXone 1,000 MG in SYRINGE 1 EACH IV SCH (09:01)
[2018-10-07] MEDS: PANTOPRAZOLE 40 MG VIAL IV SCH ×2 (09:01→20:27)
[2018-10-07] MEDS: ENOXAPARIN 40 MG/0.4 ML SYRINGE SUBCUT SCH (09:01)
[2018-10-07] MEDS: SODIUM CHLORIDE 0.65% NASAL SPRAY 45 ML BOTTLE BOTH NARES SCH ×4 (09:01→22:34)
[2018-10-07] MEDS: LIDOCAINE 5% PATCH TRANSDERM SCH (11:56)
[2018-10-07] MEDS: FLUCONAZOLE INJ 100 MG in IV BAG 1 EACH IV SCH (12:49)
[2018-10-07] MEDS: SODIUM CHLORIDE 0.9% 1,000 ML IV SCH (13:33)
[2018-10-08] MEDS: ALBUTEROL/IPRATROPIUM 3 ML NEB RESP TX SCH ×4 (01:38→19:51)
[2018-10-08] MEDS: MORPHINE 4 MG/1 ML VIAL IV PRN ×4 (02:01→21:03)
[2018-10-08] MEDS: methylPREDNISolone SOD SUC 40 MG/1 ML VIAL IV SCH ×2 (03:38→18:27)
[2018-10-08] MEDS: DEXTROSE 5% LACTATED RINGERS 1,000 ML IV SCH ×3 (03:41→23:51)
[2018-10-08 04:37] LABS: Basophils % 0.2 % (0.0-0.8); Hematocrit 38.7 VOL% (42.0-52.0); Hemoglobin 12.4 GM/DL (14.0-18.0); Immature Granulocytes % 1.7 %; Immature Granulocytes Absolute 0.18 #; Lymphocytes # 0.6 10*3/uL (1.4-4.0); Lymphocytes % 5.8 % (21.2-54.2); Mean Corpuscular Volume 85.8 FL (87-102); Mean Platelet Volume 13.5 FL (9.6-12.0); Monocytes % 4.9 % (1.7-12.7); Neutrophils % 87.4 % (38.7-73.9); Platelet Count 141 T/CUMM (130-400); Red Blood Count 4.51 MC/CUMM (3.8-5.5); Red Cell Distribution Width 15.5 % (9.3-17.3); White Blood Count 10.3 T/CUMM (4-12)
[2018-10-08] MEDS: hydrALAZINE 20 MG/1 ML VIAL IV PRN (04:38)
[2018-10-08 04:51] LABS: Albumin 2.5 G/DL (3.4-5.0); Bilirubin,Direct 0.1 MG/DL (0.0-0.20); Bilirubin,Indirect 0.3 MG/DL (0.0-1.0); Bilirubin,Total 0.4 MG/DL (0.2-1.0); Calcium 7.9 MG/DL (8.5-10.1); Osmolality,Calculated 297.4 MOS/KG (273-304); Total Protein 5.9 G/DL (6.4-8.3)
[2018-10-08] MEDS: ENOXAPARIN 40 MG/0.4 ML SYRINGE SUBCUT SCH (08:59)
[2018-10-08] MEDS: INSULIN REGULAR 100 UNIT/ML SUBCUT SCH ×4 (08:59→21:02)
[2018-10-08] MEDS: PANTOPRAZOLE 40 MG VIAL IV SCH ×2 (08:59→21:05)
[2018-10-08] MEDS: SODIUM CHLORIDE 0.65% NASAL SPRAY 45 ML BOTTLE BOTH NARES SCH ×4 (09:01→21:08)
[2018-10-08] MEDS: SODIUM CHLORIDE 0.9% 1,000 ML IV SCH (12:40)
[2018-10-08] MEDS: FLUCONAZOLE INJ 100 MG in IV BAG 1 EACH IV SCH (13:33)
[2018-10-08] MEDS: LIDOCAINE 5% PATCH TRANSDERM SCH (13:34)
[2018-10-08] MEDS: ONDANSETRON 4 MG/2 ML VIAL IV PRN (16:35)
[2018-10-09] MEDS: ALBUTEROL/IPRATROPIUM 3 ML NEB RESP TX SCH ×4 (01:09→19:35)
[2018-10-09] MEDS: MORPHINE 4 MG/1 ML VIAL IV PRN ×5 (01:29→22:04)
[2018-10-09] MEDS: methylPREDNISolone SOD SUC 40 MG/1 ML VIAL IV SCH ×2 (05:42→17:16)
[2018-10-09 06:06] LABS: Basophils % 0.3 % (0.0-0.8); Hematocrit 40.1 VOL% (42.0-52.0); Hemoglobin 13.2 GM/DL (14.0-18.0); Immature Granulocytes % 1.8 %; Immature Granulocytes Absolute 0.21 #; Lymphocytes # 0.8 10*3/uL (1.4-4.0); Lymphocytes % 6.8 % (21.2-54.2); Mean Corpuscular HGB Conc 32.9 GM/DL (32-36); Mean Corpuscular Volume 85.3 FL (87-102); Mean Platelet Volume 13.8 FL (9.6-12.0); Monocytes % 5.4 % (1.7-12.7); Neutrophils % 85.7 % (38.7-73.9); Platelet Count 142 T/CUMM (130-400); Red Cell Distribution Width 15.3 % (9.3-17.3); White Blood Count 11.9 T/CUMM (4-12)
[2018-10-09 06:16] LABS: INR 1.1; PT Patient Result 11.6 SECS
[2018-10-09 06:16] LABS: Pneumocystis jiroveci Result Negative (Negative); Pneumocystis jiroveci Source SPUTUM
[2018-10-09 06:20] LABS: Calcium 8.1 MG/DL (8.5-10.1); Osmolality,Calculated 292.5 MOS/KG (273-304)
[2018-10-09] MEDS ORDERED: ceFAZolin 1,000 MG in SYRINGE 1 EACH IV ONE (08:00)
[2018-10-09] MEDS: INSULIN REGULAR 100 UNIT/ML SUBCUT SCH ×4 (08:05→22:03)
[2018-10-09] MEDS: DEXTROSE 5% LACTATED RINGERS 1,000 ML IV SCH (08:06)
[2018-10-09] MEDS: hydrALAZINE 20 MG/1 ML VIAL IV PRN ×2 (08:40→17:16)
[2018-10-09] MEDS: PANTOPRAZOLE 40 MG VIAL IV SCH ×2 (08:40→22:02)
[2018-10-09] MEDS: SODIUM CHLORIDE 0.65% NASAL SPRAY 45 ML BOTTLE BOTH NARES SCH ×4 (08:40→22:03)
[2018-10-09] MEDS ORDERED: LACTATED RINGERS 1,000 ML IV SCH (09:00)
[2018-10-09] MEDS ORDERED: LIDOCAINE 2% 5 ML VIAL ONE (11:00)
[2018-10-09] MEDS ORDERED: PROPOFOL 200 MG/20 ML VIAL IV ONE (11:00)
[2018-10-09] MEDS: SODIUM CHLORIDE 0.9% 1,000 ML IV SCH (12:36)
[2018-10-09] MEDS: LIDOCAINE 5% PATCH TRANSDERM SCH (12:37)
[2018-10-09] MEDS: FLUCONAZOLE INJ 100 MG in IV BAG 1 EACH IV SCH (12:37)
[2018-10-09] MEDS ORDERED: HYDROcod/ACETAMIN 7.5-325 MG/15 ML UDCUP PO PRN (14:47)
[2018-10-09] MEDS: hydrALAZINE 25 MG TABLET PO SCH (22:02)
[2018-10-10] MEDS: ALBUTEROL/IPRATROPIUM 3 ML NEB RESP TX SCH ×2 (01:05→07:25)
[2018-10-10] MEDS: DEXTROSE 5% LACTATED RINGERS 1,000 ML IV SCH ×2 (01:35→13:44)
[2018-10-10] MEDS: MORPHINE 4 MG/1 ML VIAL IV PRN ×3 (04:55→13:19)
[2018-10-10] MEDS: methylPREDNISolone SOD SUC 40 MG/1 ML VIAL IV SCH (06:16)
[2018-10-10 07:21] LABS: Calcium 7.4 MG/DL (8.5-10.1); Osmolality,Calculated 291.5 MOS/KG (273-304); Prealbumin 30.9 MG/DL (20-40)
[2018-10-10] MEDS: PANTOPRAZOLE 40 MG VIAL IV SCH (08:55)
[2018-10-10] MEDS: INSULIN REGULAR 100 UNIT/ML SUBCUT SCH ×2 (08:55→13:20)
[2018-10-10] MEDS: SODIUM CHLORIDE 0.65% NASAL SPRAY 45 ML BOTTLE BOTH NARES SCH ×2 (08:56→14:13)
[2018-10-10] MEDS ORDERED: predniSONE 20 MG TABLET PO SCH (09:30)
[2018-10-10] MEDS ORDERED: BUDESONIDE/FORMOTEROL 160-4.5 INHALER 6 GM INH SCH (09:30)
[2018-10-10] MEDS: hydrALAZINE 25 MG TABLET PO SCH ×2 (09:50→16:06)
[2018-10-10 13:02] VITALS: BP 168/82
[2018-10-10] MEDS: LIDOCAINE 5% PATCH TRANSDERM SCH (13:20)
[2018-10-10] MEDS: SODIUM CHLORIDE 0.9% 1,000 ML IV SCH (13:44)
[2018-10-10] MEDS: FLUCONAZOLE INJ 100 MG in IV BAG 1 EACH IV SCH (14:44)
[2018-10-10] MEDS ORDERED: FLUCONAZOLE INJ 100 MG in IV BAG 1 EACH IV SCH (15:00)
== END 2018-10-10 16:25 | disposition home or self-care (01) | DRG 974 ==
LOC: N.ED 17:16 → N.EDINP 21:13 → SUATTDRO 21:13 → N.ED 22:15 → N.5E 09-29 00:55
PROVIDERS: ADMIT Internal Medicine; ATTEND Internal Medicine
PROC: EGDWPEG (ICD-10-PCS; 2018-10-09 09:05)

== ENCOUNTER 2018-12-25 17:30 | Inpatient (IN) ==
[2018-12-25] MEDS ORDERED: methylPREDNISolone SOD SUC 125 MG/2 ML VIAL IV STA (18:04)
[2018-12-25] MEDS ORDERED: MORPHINE 4 MG/1 ML VIAL IV STA ×2 (18:04→20:44)
[2018-12-25] MEDS ORDERED: SODIUM CHLORIDE 0.9% 500 ML IV STA ×2 (18:04→20:22)
[2018-12-25] MEDS ORDERED: cefTRIAXone 1,000 MG in SODIUM CHLORIDE 0.9% 100 ML IV STA (18:04)
[2018-12-25] MEDS ORDERED: ALBUTEROL/IPRATROPIUM 3 ML NEB RESP TX STA (18:04)
[2018-12-25] MEDS ORDERED: ONDANSETRON 4 MG/2 ML VIAL IV STA (18:04)
[2018-12-25 18:35] LABS: Basophils % 0.1 % (0.0-0.8); Eosinophils % 0.6 % (0.00-10.9); Hematocrit 41.3 VOL% (42.0-52.0); Hemoglobin 13.6 GM/DL (14.0-18.0); Immature Granulocytes % 0.6 %; Immature Granulocytes Absolute 0.04 #; Lymphocytes # 1.7 10*3/uL (1.4-4.0); Mean Corpuscular HGB Conc 32.9 GM/DL (32-36); Mean Corpuscular Volume 86.4 FL (87-102); Mean Platelet Volume 13.3 FL (9.6-12.0); Monocytes % 6.5 % (1.7-12.7); Neutrophils % 69.2 % (38.7-73.9); Platelet Count 133 T/CUMM (130-400); Red Blood Count 4.78 MC/CUMM (3.8-5.5); Red Cell Distribution Width 15.9 % (9.3-17.3); White Blood Count 7.2 T/CUMM (4-12)
[2018-12-25 18:42] LABS: PT Patient Result 10.6 SECS
[2018-12-25 19:42] LABS: Apearance,Urine Slightly Hazy (Clear); Bilirubin,Urine Negative (Negative); Blood, Urine Negative (Negative); Glucose,Urine (UA) Negative (Negative); Hyaline Casts,Urine 7 /LPF (0-3); Ketones,Urine Negative (Negative); Nitrite,Urine Negative (Negative); Protein,Urine 30 MG/DL; RBC,Urine 1 /HPF (0-4); Squamous Epithelial Cell,Urine Occasional /HPF (0-10); Urine Color Yellow (Yellow); Urine Specific Gravity 1.013 (1.001-1.035); Urine Urobilinogen < 2.0 EU/DL (0.2-1.0); WBC,Urine 11 /HPF (0-6)
[2018-12-25 19:43] LABS: Barbiturates Screen,Urine Negative (Negative); Benzodiazepines Screen,Urine Negative (Negative); Cannabinoid Screen,Urine Negative (Negative); Opiate Screen,Urine Positive (Negative); Phencyclidine Screen,Urine Negative (Negative)
[2018-12-25 20:09] LABS: Albumin 3.4 G/DL (3.4-5.0); Bilirubin,Total 1.1 MG/DL (0.2-1.0); Calcium 9.7 MG/DL (8.5-10.1); Osmolality,Calculated 298.2 MOS/KG (273-304); Total Protein 8.1 G/DL (6.4-8.3)
[2018-12-25] MEDS ORDERED: ACETAMINOPHEN 325 MG TABLET PO PRN (21:29)
[2018-12-25] MEDS ORDERED: POTASSIUM CHLORIDE 20 MEQ TABLET PO PRN (21:29)
[2018-12-25] MEDS ORDERED: diphenhydrAMINE CAP 25 MG CAPSULE PO PRN (21:29)
[2018-12-25] MEDS ORDERED: GLUCAGON 1 MG VIAL IM PRN (21:29)
[2018-12-25] MEDS ORDERED: ONDANSETRON 4 MG/2 ML VIAL IV PRN (21:29)
[2018-12-25] MEDS ORDERED: DEXTROSE 50% 25 GM/50 ML VIAL IV PRN (21:29)
[2018-12-25] MEDS: MORPHINE 4 MG/1 ML VIAL IV PRN (23:43)
[2018-12-26] MEDS: ALBUTEROL/IPRATROPIUM 3 ML NEB RESP TX SCH ×4 (01:15→19:29)
[2018-12-26] MEDS: SODIUM CHLORIDE 0.9% 1,000 ML IV SCH ×3 (01:34→19:31)
[2018-12-26] MEDS: AZITHROMYCIN INJ 500 MG in SODIUM CHLORIDE 0.9% 250 ML IV SCH ×2 (01:40→23:17)
[2018-12-26] MEDS: MORPHINE 4 MG/1 ML VIAL IV PRN ×5 (02:58→21:35)
[2018-12-26 04:35] LABS: Basophils % 0.2 % (0.0-0.8); Hematocrit 33.6 VOL% (42.0-52.0); Immature Granulocytes % 0.3 %; Immature Granulocytes Absolute 0.02 #; Lymphocytes # 0.6 10*3/uL (1.4-4.0); Lymphocytes % 10.3 % (21.2-54.2); Mean Corpuscular HGB Conc 32.7 GM/DL (32-36); Mean Corpuscular Volume 86.8 FL (87-102); Mean Platelet Volume 13.5 FL (9.6-12.0); Monocytes % 0.3 % (1.7-12.7); Neutrophils % 88.9 % (38.7-73.9); Platelet Count 133 T/CUMM (130-400); Red Blood Count 3.87 MC/CUMM (3.8-5.5); Red Cell Distribution Width 15.7 % (9.3-17.3); White Blood Count 5.9 T/CUMM (4-12)
[2018-12-26 04:55] LABS: Albumin 2.8 G/DL (3.4-5.0); Bilirubin,Total 1.4 MG/DL (0.2-1.0); Calcium 8.7 MG/DL (8.5-10.1)
[2018-12-26] MEDS: INSULIN REGULAR 100 UNIT/ML SUBCUT SCH ×4 (08:10→21:35)
[2018-12-26] MEDS: PANTOPRAZOLE 40 MG TABLET PO SCH (08:14)
[2018-12-26] MEDS: DICLOFENAC 1% GEL 100 GM TUBE TOP SCH ×4 (08:43→21:45)
[2018-12-26] MEDS ORDERED: cefTRIAXone 1,000 MG in SYRINGE 1 EACH IV SCH (09:00)
[2018-12-26] MEDS: NICOTINE 21 MG/24 HR PATCH TRANSDERM PRN (12:07)
[2018-12-27] MEDS: ALBUTEROL/IPRATROPIUM 3 ML NEB RESP TX SCH ×4 (00:27→19:44)
[2018-12-27] MEDS: SODIUM CHLORIDE 0.9% 1,000 ML IV SCH ×3 (03:17→17:04)
[2018-12-27] MEDS: MORPHINE 4 MG/1 ML VIAL IV PRN ×4 (06:35→21:18)
[2018-12-27] MEDS: PANTOPRAZOLE 40 MG TABLET PO SCH (08:22)
[2018-12-27] MEDS: NICOTINE 21 MG/24 HR PATCH TRANSDERM PRN (08:23)
[2018-12-27] MEDS: INSULIN REGULAR 100 UNIT/ML SUBCUT SCH ×4 (08:23→21:19)
[2018-12-27 08:25] LABS: Basophils % 0.1 % (0.0-0.8); Hemoglobin 12.8 GM/DL (14.0-18.0); Immature Granulocytes % 0.6 %; Immature Granulocytes Absolute 0.08 #; Lymphocytes # 1.2 10*3/uL (1.4-4.0); Lymphocytes % 8.9 % (21.2-54.2); Mean Corpuscular Volume 89.1 FL (87-102); Mean Platelet Volume 12.7 FL (9.6-12.0); Monocytes % 5.1 % (1.7-12.7); Neutrophils % 85.3 % (38.7-73.9); Platelet Count 142 T/CUMM (130-400); Red Blood Count 4.49 MC/CUMM (3.8-5.5); White Blood Count 13.6 T/CUMM (4-12)
[2018-12-27] MEDS: DICLOFENAC 1% GEL 100 GM TUBE TOP SCH ×5 (08:25→21:20)
[2018-12-27] MEDS: cefTRIAXone 1,000 MG in SYRINGE 1 EACH IV SCH (08:27)
[2018-12-27 08:52] LABS: Bilirubin,Total 1.1 MG/DL (0.2-1.0); Calcium 9.1 MG/DL (8.5-10.1); Osmolality,Calculated 308.1 MOS/KG (273-304); Total Protein 7.6 G/DL (6.4-8.3)
[2018-12-27] MEDS: ENOXAPARIN 40 MG/0.4 ML SYRINGE SUBCUT SCH (12:01)
[2018-12-27] MEDS: LOSARTAN/HCTZ 50-12.5 MG TABLET PO SCH (13:52)
[2018-12-27] MEDS ORDERED: ALUMINUM/MAGNES/SIMETH MAX STR 30 ML UDCUP PO PRN (21:00)
[2018-12-27] MEDS ORDERED: VARENICLINE PO SCH (21:00)
[2018-12-27] MEDS: PREGABALIN 100 MG CAPSULE PO SCH (21:19)
[2018-12-27] MEDS: AZITHROMYCIN INJ 500 MG in SODIUM CHLORIDE 0.9% 250 ML IV SCH (23:32)
[2018-12-28] MEDS: ALBUTEROL/IPRATROPIUM 3 ML NEB RESP TX SCH ×4 (00:10→19:36)
[2018-12-28] MEDS: SODIUM CHLORIDE 0.9% 1,000 ML IV SCH ×3 (00:47→16:38)
[2018-12-28] MEDS: MORPHINE 4 MG/1 ML VIAL IV PRN ×3 (05:30→21:01)
[2018-12-28 06:10] LABS: Basophils % 0.2 % (0.0-0.8); Eosinophils % 0.2 % (0.00-10.9); Hematocrit 35.1 VOL% (42.0-52.0); Hemoglobin 11.5 GM/DL (14.0-18.0); Immature Granulocytes % 0.9 %; Immature Granulocytes Absolute 0.09 #; Lymphocytes # 1.6 10*3/uL (1.4-4.0); Lymphocytes % 15.6 % (21.2-54.2); Mean Corpuscular HGB Conc 32.8 GM/DL (32-36); Mean Corpuscular Volume 87.3 FL (87-102); Monocytes % 7.3 % (1.7-12.7); Neutrophils % 75.8 % (38.7-73.9); Platelet Count 138 T/CUMM (130-400); Red Blood Count 4.02 MC/CUMM (3.8-5.5); Red Cell Distribution Width 15.8 % (9.3-17.3)
[2018-12-28 06:39] LABS: Albumin 2.7 G/DL (3.4-5.0); Bilirubin,Total 0.5 MG/DL (0.2-1.0); Calcium 8.5 MG/DL (8.5-10.1); Osmolality,Calculated 297.7 MOS/KG (273-304); Total Protein 6.2 G/DL (6.4-8.3)
[2018-12-28] MEDS: INSULIN REGULAR 100 UNIT/ML SUBCUT SCH ×4 (07:47→21:01)
[2018-12-28] MEDS: RILPIVIRINE 25 MG PO SCH (08:30)
[2018-12-28] MEDS: Ritonavir [Norvir] 100 MG PO SCH (08:30)
[2018-12-28] MEDS: ATAZANAVIR 300 MG PO SCH (08:30)
[2018-12-28] MEDS: DICLOFENAC 1% GEL 100 GM TUBE TOP SCH ×4 (08:32→21:01)
[2018-12-28] MEDS: FLUoxetine 20 MG CAPSULE PO SCH (08:33)
[2018-12-28] MEDS: PREGABALIN 100 MG CAPSULE PO SCH ×2 (08:33→21:01)
[2018-12-28] MEDS: NICOTINE 21 MG/24 HR PATCH TRANSDERM PRN (08:33)
[2018-12-28] MEDS: PANTOPRAZOLE 40 MG TABLET PO SCH (08:33)
[2018-12-28] MEDS: LOSARTAN/HCTZ 50-12.5 MG TABLET PO SCH (08:33)
[2018-12-28] MEDS: cefTRIAXone 1,000 MG in SYRINGE 1 EACH IV SCH (08:33)
[2018-12-28] MEDS: ENOXAPARIN 40 MG/0.4 ML SYRINGE SUBCUT SCH (12:20)
[2018-12-28] MEDS: AZITHROMYCIN INJ 500 MG in SODIUM CHLORIDE 0.9% 250 ML IV SCH (23:20)
[2018-12-29] MEDS: ALBUTEROL/IPRATROPIUM 3 ML NEB RESP TX SCH ×3 (00:52→13:32)
[2018-12-29] MEDS: SODIUM CHLORIDE 0.9% 1,000 ML IV SCH ×3 (03:08→16:22)
[2018-12-29] MEDS: MORPHINE 4 MG/1 ML VIAL IV PRN ×2 (06:57→11:27)
[2018-12-29] MEDS: RILPIVIRINE 25 MG PO SCH (08:22)
[2018-12-29] MEDS: ATAZANAVIR 300 MG PO SCH (08:22)
[2018-12-29] MEDS: Ritonavir [Norvir] 100 MG PO SCH (08:23)
[2018-12-29] MEDS: PREGABALIN 100 MG CAPSULE PO SCH (08:24)
[2018-12-29] MEDS: FLUoxetine 20 MG CAPSULE PO SCH (08:24)
[2018-12-29] MEDS: LOSARTAN/HCTZ 50-12.5 MG TABLET PO SCH (08:24)
[2018-12-29] MEDS: PANTOPRAZOLE 40 MG TABLET PO SCH (08:24)
[2018-12-29] MEDS: cefTRIAXone 1,000 MG in SYRINGE 1 EACH IV SCH (08:25)
[2018-12-29] MEDS: INSULIN REGULAR 100 UNIT/ML SUBCUT SCH ×2 (09:20→13:04)
[2018-12-29] MEDS: DICLOFENAC 1% GEL 100 GM TUBE TOP SCH ×2 (11:05→16:22)
[2018-12-29 12:05] VITALS: BP 145/78
[2018-12-29] MEDS: ENOXAPARIN 40 MG/0.4 ML SYRINGE SUBCUT SCH (13:05)
[2018-12-29] MEDS: NICOTINE 21 MG/24 HR PATCH TRANSDERM PRN (15:41)
[2018-12-31 06:26] LABS: Pneumocystis jiroveci Result Negative (Negative); Pneumocystis jiroveci Source SPUTUM
[2018-12-31 11:16] LABS: % CD4 (T Cells) 22 % (32-64); % CD8 (T Cells) 57 % (8-40); 4/8 Ratio 0.4 (>=0.9)
[2018-12-31 19:21] LABS: TB2 Ag Minus Result 0.01 IU/mL
== END 2018-12-29 16:57 | disposition home health service (06) | DRG 180 ==
LOC: N.ED 17:30 → N.EDINP 17:30 → N.3E 12-26 00:07 → N.5E 12-26 00:23 → SUATTDRO 12-26 13:16
PROVIDERS: ADMIT Internal Medicine; ATTEND Internal Medicine

== ENCOUNTER 2019-02-26 17:17 | Inpatient (IN) ==
[2019-02-26 20:45] LABS: Basophils % 0.3 % (0.0-0.8); Eosinophils # 0.1 10*3/uL (0.0-0.87); Eosinophils % 0.6 % (0.00-10.9); Hematocrit 41.8 VOL% (42.0-52.0); Hemoglobin 13.8 GM/DL (14.0-18.0); Immature Granulocytes % 0.7 %; Immature Granulocytes Absolute 0.07 #; Lymphocytes # 1.9 10*3/uL (1.4-4.0); Lymphocytes % 18.7 % (21.2-54.2); Mean Corpuscular Volume 87.8 FL (87-102); Mean Platelet Volume 13.9 FL (9.6-12.0); Monocytes % 7.3 % (1.7-12.7); Neutrophils % 72.4 % (38.7-73.9); Platelet Count 114 T/CUMM (130-400); Red Blood Count 4.76 MC/CUMM (3.8-5.5); Red Cell Distribution Width 14.2 % (9.3-17.3); White Blood Count 10.2 T/CUMM (4-12)
[2019-02-26 21:05] LABS: Albumin 3.2 G/DL (3.4-5.0); Bilirubin,Total 0.8 MG/DL (0.2-1.0); Calcium 9.1 MG/DL (8.5-10.1); Osmolality,Calculated 297.2 MOS/KG (273-304); Total Protein 7.8 G/DL (6.4-8.3)
[2019-02-27] MEDS ORDERED: DEXTROSE 50% 25 GM/50 ML VIAL IV PRN (00:31)
[2019-02-27] MEDS ORDERED: GLUCAGON 1 MG VIAL IM PRN (00:31)
[2019-02-27] MEDS ORDERED: DOCUSATE SODIUM 100 MG CAPSULE PO PRN (00:31)
[2019-02-27] MEDS ORDERED: ONDANSETRON 4 MG/2 ML VIAL IV PRN (00:31)
[2019-02-27] MEDS ORDERED: ALBUTEROL 2.5 MG/3 ML NEB RESP TX PRN (00:31)
[2019-02-27] MEDS ORDERED: ACETAMINOPHEN 325 MG TABLET PO PRN (00:31)
[2019-02-27 01:21] LABS: Basophils % 0.3 % (0.0-0.8); Eosinophils # 0.1 10*3/uL (0.0-0.87); Eosinophils % 0.8 % (0.00-10.9); Hematocrit 40.8 VOL% (42.0-52.0); Hemoglobin 13.3 GM/DL (14.0-18.0); Lymphocytes % 20.9 % (21.2-54.2); Mean Corpuscular HGB Conc 32.6 GM/DL (32-36); Mean Corpuscular Volume 87.7 FL (87-102); Mean Platelet Volume 14.1 FL (9.6-12.0); Monocytes % 6.5 % (1.7-12.7); Neutrophils % 70.5 % (38.7-73.9); Platelet Count 120 T/CUMM (130-400); Red Blood Count 4.65 MC/CUMM (3.8-5.5); Red Cell Distribution Width 14.2 % (9.3-17.3); White Blood Count 9.7 T/CUMM (4-12)
[2019-02-27] MEDS: ALBUTEROL/IPRATROPIUM 3 ML NEB RESP TX SCH ×4 (01:24→19:35)
[2019-02-27] MEDS: SODIUM CHLORIDE 0.9% 1,000 ML IV SCH (01:46)
[2019-02-27 01:47] LABS: Calcium 9.4 MG/DL (8.5-10.1); Osmolality,Calculated 296.7 MOS/KG (273-304)
[2019-02-27] MEDS: VANCOMYCIN INJ 1,250 MG in SODIUM CHLORIDE 0.9% 250 ML IV SCH ×2 (01:47→14:52)
[2019-02-27] MEDS: QUEtiapine 25 MG TABLET PO SCH ×2 (01:52→21:16)
[2019-02-27] MEDS: guaiFENesin/DM ER 600-30 MG TABLET PO SCH ×3 (01:52→21:16)
[2019-02-27] MEDS: INSULIN REGULAR 100 UNIT/ML SUBCUT SCH ×5 (02:03→21:19)
[2019-02-27] MEDS: LEVOFLOXACIN INJ 750 MG in PREMIX 1 EACH IV SCH (03:12)
[2019-02-27] MEDS: PIPERACILLIN/TAZOBACTAM 3,375 MG in SODIUM CHLORIDE 0.9% 100 ML IV SCH ×3 (05:03→18:14)
[2019-02-27] MEDS: MORPHINE ER 15 MG TABLET PO PRN (08:55)
[2019-02-28] MEDS: SODIUM CHLORIDE 0.9% 1,000 ML IV SCH ×3 (00:33→08:54)
[2019-02-28] MEDS: VANCOMYCIN INJ 1,250 MG in SODIUM CHLORIDE 0.9% 250 ML IV SCH ×2 (01:14→15:03)
[2019-02-28] MEDS: LEVOFLOXACIN INJ 750 MG in PREMIX 1 EACH IV SCH (01:16)
[2019-02-28] MEDS: ALBUTEROL/IPRATROPIUM 3 ML NEB RESP TX SCH ×3 (01:52→14:33)
[2019-02-28] MEDS: MORPHINE ER 15 MG TABLET PO PRN (03:36)
[2019-02-28] MEDS: PIPERACILLIN/TAZOBACTAM 3,375 MG in SODIUM CHLORIDE 0.9% 100 ML IV SCH ×3 (03:37→10:43)
[2019-02-28 04:27] LABS: Basophils % 0.2 % (0.0-0.8); Eosinophils # 0.1 10*3/uL (0.0-0.87); Eosinophils % 0.8 % (0.00-10.9); Hematocrit 38.6 VOL% (42.0-52.0); Hemoglobin 12.5 GM/DL (14.0-18.0); Immature Granulocytes % 0.7 %; Immature Granulocytes Absolute 0.06 #; Lymphocytes # 1.7 10*3/uL (1.4-4.0); Lymphocytes % 19.4 % (21.2-54.2); Mean Corpuscular HGB Conc 32.4 GM/DL (32-36); Mean Corpuscular Volume 88.3 FL (87-102); Mean Platelet Volume 13.9 FL (9.6-12.0); Monocytes % 7.1 % (1.7-12.7); Neutrophils % 71.8 % (38.7-73.9); Platelet Count 101 T/CUMM (130-400); Red Blood Count 4.37 MC/CUMM (3.8-5.5); Red Cell Distribution Width 14.5 % (9.3-17.3); White Blood Count 8.8 T/CUMM (4-12)
[2019-02-28 04:57] LABS: Osmolality,Calculated 291.4 MOS/KG (273-304)
[2019-02-28 05:01] LABS: Prealbumin 26.9 MG/DL (20-40)
[2019-02-28] MEDS: INSULIN REGULAR 100 UNIT/ML SUBCUT SCH ×2 (08:09→13:13)
[2019-02-28] MEDS: guaiFENesin/DM ER 600-30 MG TABLET PO SCH (08:55)
[2019-02-28 13:16] VITALS: BP 118/65
== END 2019-02-28 16:00 | disposition home or self-care (01) | DRG 180 ==
LOC: N.ED 17:17 → SUATTDRO 23:26 → N.EDINP 23:26 → N.5E 23:43
PROVIDERS: ADMIT Hospitalist; ATTEND Internal Medicine

== ENCOUNTER 2019-05-05 19:58 | Inpatient (IN) ==
[2019-05-05] MEDS ORDERED: methylPREDNISolone SOD SUC 125 MG/2 ML VIAL IV STA (20:10)
[2019-05-05] MEDS ORDERED: MEROPENEM 2,000 MG in SODIUM CHLORIDE 0.9% 100 ML IV ONE (20:10)
[2019-05-05] MEDS ORDERED: SODIUM CHLORIDE 0.9% 1,000 ML IV STA (20:10)
[2019-05-05] MEDS ORDERED: VANCOMYCIN INJ 1,000 MG in SODIUM CHLORIDE 0.9% 250 ML IV STA (20:15)
[2019-05-05] MEDS ORDERED: ALBUTEROL NEB SOLN 5 MG/ML 20 ML/BOTTLE RESP TX SCH (20:30)
[2019-05-05 20:41] LABS: Basophils % 0.2 % (0.0-0.8); Eosinophils % 0.2 % (0.00-10.9); Hematocrit 31.8 VOL% (42.0-52.0); Hemoglobin 10.4 GM/DL (14.0-18.0); Immature Granulocytes % 0.5 %; Immature Granulocytes Absolute 0.06 #; Lymphocytes # 2.4 10*3/uL (1.4-4.0); Lymphocytes % 19.3 % (21.2-54.2); Mean Corpuscular HGB Conc 32.7 GM/DL (32-36); Mean Corpuscular Volume 89.3 FL (87-102); Mean Platelet Volume 12.9 FL (9.6-12.0); Neutrophils % 75.8 % (38.7-73.9); Platelet Count 216 T/CUMM (130-400); Red Blood Count 3.56 MC/CUMM (3.8-5.5); Red Cell Distribution Width 15.6 % (9.3-17.3); White Blood Count 12.2 T/CUMM (4-12)
[2019-05-05] MEDS ORDERED: NOREPINEPHRINE 4 MG/4 ML VIAL IV ONE (20:49)
[2019-05-05] MEDS ORDERED: NOREPINEPHRINE 8 MG in SODIUM CHLORIDE 0.9% 242 ML IV PRN (20:50)
[2019-05-05 20:51] LABS: PT Patient Result 11.1 SECS (9.6-12.2)
[2019-05-05 20:57] LABS: Alanine Aminotransferase 54 U/L (16-61); Albumin 2.7 G/DL (3.4-5.0); Alkaline Phosphatase 130 U/L (45-117); Aspartate Amino Transferase 41 U/L (0-37); Blood Urea Nitrogen 52 MG/DL (7-18); Calcium 9.4 MG/DL (8.5-10.1); Estimated Glom Filtration Rate 46 ML/MIN; Glucose 136 MG/DL (74-106); Total Protein 7.2 G/DL (6.4-8.3)
[2019-05-05 20:58] LABS: Apearance,Urine CLEAR (Clear); Bilirubin,Urine Negative (Negative); Blood, Urine Negative (Negative); Glucose,Urine (UA) Negative (Negative); Ketones,Urine Negative (Negative); Nitrite,Urine Negative (Negative); Protein,Urine Negative; RBC,Urine 1 /HPF (0-4); Squamous Epithelial Cell,Urine Occasional /HPF (0-10); Urine Color Yellow (Yellow); Urine Specific Gravity 1.012 (1.001-1.035); WBC,Urine 1 /HPF (0-6)
[2019-05-05] MEDS ORDERED: ACETAMINOPHEN 325 MG TABLET PO PRN (21:39)
[2019-05-05] MEDS ORDERED: SODIUM CHLORIDE 0.9% 1,650 ML IV ONE (21:39)
[2019-05-05] MEDS ORDERED: MORPHINE ER 15 MG TABLET PO PRN (22:29)
[2019-05-05] MEDS: SULFAMETH/TRIMETH INJ 120 MG in DEXTROSE 5% 250 ML IV SCH (23:19)
[2019-05-06] MEDS: ALBUTEROL/IPRATROPIUM 3 ML NEB RESP TX SCH ×4 (00:09→18:46)
[2019-05-06] MEDS: ENOXAPARIN 40 MG/0.4 ML SYRINGE SUBCUT SCH ×2 (00:26→22:48)
[2019-05-06] MEDS: PIPERACILLIN/TAZOBACTAM 3,375 MG in SODIUM CHLORIDE 0.9% 100 ML IV SCH ×3 (01:15→19:50)
[2019-05-06] MEDS: SODIUM CHLORIDE 0.9% 1,000 ML IV SCH ×2 (01:15→18:17)
[2019-05-06] MEDS ORDERED: DEXTROSE 50% 25 GM/50 ML VIAL IV PRN (01:36)
[2019-05-06] MEDS ORDERED: GLUCAGON 1 MG VIAL IM PRN (01:36)
[2019-05-06] MEDS: INSULIN REGULAR 100 UNIT/ML SUBCUT SCH ×5 (02:35→22:49)
[2019-05-06] MEDS: SULFAMETH/TRIMETH INJ 120 MG in DEXTROSE 5% 250 ML IV SCH ×4 (05:00→23:50)
[2019-05-06] MEDS ORDERED: LEVOFLOXACIN INJ 750 MG in PREMIX 1 EACH IV SCH (06:00)
[2019-05-06] MEDS: methylPREDNISolone SOD SUC 40 MG/1 ML VIAL IV SCH ×3 (06:02→22:48)
[2019-05-06] MEDS ORDERED: RILPIVIRINE 25 MG PO SCH (09:00)
[2019-05-06 09:10] LABS: Basophils % 0.1 % (0.0-0.8); Hemoglobin 9.9 GM/DL (14.0-18.0); Immature Granulocytes % 0.5 %; Immature Granulocytes Absolute 0.05 #; Lymphocytes # 0.5 10*3/uL (1.4-4.0); Lymphocytes % 5.2 % (21.2-54.2); Monocytes % 0.9 % (1.7-12.7); Neutrophils % 93.3 % (38.7-73.9); Platelet Count 173 T/CUMM (130-400); Red Blood Count 3.41 MC/CUMM (3.8-5.5); Red Cell Distribution Width 15.4 % (9.3-17.3); White Blood Count 10.3 T/CUMM (4-12)
[2019-05-06 09:31] LABS: Albumin 2.4 G/DL (3.4-5.0); Bilirubin,Total 1.3 MG/DL (0.2-1.0); Calcium 8.7 MG/DL (8.5-10.1); Osmolality,Calculated 304.5 MOS/KG (273-304); Total Protein 6.8 G/DL (6.4-8.3)
[2019-05-06 09:34] LABS: Band Neutrophils 4 % (0-10); Hypochromasia 1+; Lymphocytes 3 % (20-55); Segmented Neutrophils 92 % (50-85); Total Cells Counted 100
[2019-05-06 09:35] LABS: Microcytosis 1+; Ovalocytes Slight; Platelet Estimate Adequate
[2019-05-06] MEDS: CITALOPRAM 20 MG TABLET PO SCH (09:45)
[2019-05-06] MEDS: CETIRIZINE 10 MG TABLET PO SCH (10:59)
[2019-05-06] MEDS: VANCOMYCIN INJ 1,250 MG in SODIUM CHLORIDE 0.9% 250 ML IV SCH (10:59)
[2019-05-06] MEDS: CYPROHEPTADINE 4 MG TABLET PO SCH ×3 (10:59→22:48)
[2019-05-06] MEDS: BUDESONIDE/FORMOTEROL 160-4.5 INHALER 6 GM INH SCH (10:59)
[2019-05-06] MEDS: PANTOPRAZOLE 40 MG TABLET PO SCH (10:59)
[2019-05-06] MEDS ORDERED: POTASSIUM CHLORIDE 20 MEQ TABLET PO ONE (11:04)
[2019-05-06] MEDS: POTASSIUM CHLORIDE 10 MEQ TABLET PO SCH (11:06)
[2019-05-06] MEDS: MELOXICAM 7.5 MG TABLET PO SCH (14:15)
[2019-05-06] MEDS: ATAZANAVIR 300 MG PO SCH (16:47)
[2019-05-06] MEDS: Ritonavir [Norvir] 100 MG PO SCH (16:48)
[2019-05-06] MEDS: QUEtiapine 25 MG TABLET PO SCH (22:48)
[2019-05-07] MEDS ORDERED: ALUMINUM/MAGNES/SIMETH MAX STR 30 ML UDCUP PO PRN (00:02)
[2019-05-07] MEDS: ALBUTEROL/IPRATROPIUM 3 ML NEB RESP TX SCH ×4 (00:21→19:13)
[2019-05-07] MEDS: VANCOMYCIN INJ 1,250 MG in SODIUM CHLORIDE 0.9% 250 ML IV SCH ×2 (00:28→11:45)
[2019-05-07] MEDS: BUDESONIDE/FORMOTEROL 160-4.5 INHALER 6 GM INH SCH ×3 (01:10→20:49)
[2019-05-07] MEDS: PIPERACILLIN/TAZOBACTAM 3,375 MG in SODIUM CHLORIDE 0.9% 100 ML IV SCH ×2 (04:03→17:49)
[2019-05-07 05:11] LABS: Hemoglobin 8.8 GM/DL (14.0-18.0); Immature Granulocytes % 0.8 %; Immature Granulocytes Absolute 0.09 #; Lymphocytes # 0.5 10*3/uL (1.4-4.0); Lymphocytes % 4.4 % (21.2-54.2); Mean Corpuscular HGB Conc 32.6 GM/DL (32-36); Mean Corpuscular Volume 88.5 FL (87-102); Mean Platelet Volume 13.2 FL (9.6-12.0); Monocytes % 2.3 % (1.7-12.7); Neutrophils % 92.5 % (38.7-73.9); Platelet Count 160 T/CUMM (130-400); Red Blood Count 3.05 MC/CUMM (3.8-5.5); Red Cell Distribution Width 15.5 % (9.3-17.3); White Blood Count 11.7 T/CUMM (4-12)
[2019-05-07 05:33] LABS: Lymphocytes 1 % (20-55); Platelet Estimate Adequate; Polychromasia Few; Segmented Neutrophils 99 % (50-85); Total Cells Counted 100
[2019-05-07] MEDS: methylPREDNISolone SOD SUC 40 MG/1 ML VIAL IV SCH (05:38)
[2019-05-07] MEDS: SULFAMETH/TRIMETH INJ 120 MG in DEXTROSE 5% 250 ML IV SCH ×3 (05:42→18:44)
[2019-05-07 05:44] LABS: Bilirubin,Total 1.9 MG/DL (0.2-1.0); Calcium 8.2 MG/DL (8.5-10.1); Osmolality,Calculated 307.7 MOS/KG (273-304); Total Protein 5.8 G/DL (6.4-8.3)
[2019-05-07] MEDS: INSULIN REGULAR 100 UNIT/ML SUBCUT SCH (08:23)
[2019-05-07] MEDS: MELOXICAM 7.5 MG TABLET PO SCH (09:18)
[2019-05-07] MEDS: PANTOPRAZOLE 40 MG TABLET PO SCH (09:45)
[2019-05-07] MEDS: CITALOPRAM 20 MG TABLET PO SCH (09:45)
[2019-05-07] MEDS: CETIRIZINE 10 MG TABLET PO SCH (09:45)
[2019-05-07] MEDS: CYPROHEPTADINE 4 MG TABLET PO SCH ×3 (09:45→20:48)
[2019-05-07] MEDS: POTASSIUM CHLORIDE 10 MEQ TABLET PO SCH (09:46)
[2019-05-07] MEDS: Ritonavir [Norvir] 100 MG PO SCH (09:47)
[2019-05-07] MEDS: ATAZANAVIR 300 MG PO SCH (09:47)
[2019-05-07] MEDS ORDERED: GLUCAGON 1 MG VIAL IM PRN ×2 (11:31→20:01)
[2019-05-07] MEDS ORDERED: DEXTROSE 50% 25 GM/50 ML VIAL IV PRN ×2 (11:31→20:01)
[2019-05-07] MEDS: SODIUM CHLORIDE 0.9% 1,000 ML IV SCH ×2 (11:49→18:15)
[2019-05-07] MEDS: LEVOFLOXACIN INJ 750 MG in PREMIX 1 EACH IV SCH (11:50)
[2019-05-07] MEDS: INSULIN LISPRO 100 UNIT/ML SUBCUT SCH ×6 (12:14→23:35)
[2019-05-07 12:26] LABS: Calcium 8.4 MG/DL (8.5-10.1); Osmolality,Calculated 318.3 MOS/KG (273-304)
[2019-05-07] MEDS ORDERED: MORPHINE ER 15 MG TABLET PO PRN (12:59)
[2019-05-07] MEDS ORDERED: FUROSEMIDE 40 MG/4 ML VIAL IV ONE (13:50)
[2019-05-07] MEDS: POLYETHYLENE GLYCOL POWDER 17 GM PACK PO SCH (14:37)
[2019-05-07] MEDS ORDERED: INSULIN REGULAR 100 UNIT/ML SUBCUT SCH (16:30)
[2019-05-07] MEDS: QUEtiapine 25 MG TABLET PO SCH (20:48)
[2019-05-07] MEDS: ENOXAPARIN 40 MG/0.4 ML SYRINGE SUBCUT SCH (21:22)
[2019-05-08] MEDS: SULFAMETH/TRIMETH INJ 120 MG in DEXTROSE 5% 250 ML IV SCH ×4 (00:05→18:20)
[2019-05-08] MEDS: INSULIN LISPRO 100 UNIT/ML SUBCUT SCH ×8 (00:15→21:25)
[2019-05-08] MEDS: ALBUTEROL/IPRATROPIUM 3 ML NEB RESP TX SCH ×4 (00:38→19:34)
[2019-05-08] MEDS: VANCOMYCIN INJ 1,250 MG in SODIUM CHLORIDE 0.9% 250 ML IV SCH ×2 (00:59→12:45)
[2019-05-08] MEDS: PIPERACILLIN/TAZOBACTAM 3,375 MG in SODIUM CHLORIDE 0.9% 100 ML IV SCH ×3 (02:20→17:58)
[2019-05-08 06:03] LABS: Calcium 8.6 MG/DL (8.5-10.1); Osmolality,Calculated 306.1 MOS/KG (273-304)
[2019-05-08] MEDS: CYPROHEPTADINE 4 MG TABLET PO SCH ×3 (09:14→21:27)
[2019-05-08] MEDS: POTASSIUM CHLORIDE 10 MEQ TABLET PO SCH (09:14)
[2019-05-08] MEDS: POLYETHYLENE GLYCOL POWDER 17 GM PACK PO SCH (09:14)
[2019-05-08] MEDS: predniSONE 20 MG TABLET PO SCH (09:14)
[2019-05-08] MEDS: CETIRIZINE 10 MG TABLET PO SCH (09:14)
[2019-05-08] MEDS: MELOXICAM 7.5 MG TABLET PO SCH (09:14)
[2019-05-08] MEDS: ATAZANAVIR 300 MG PO SCH (09:15)
[2019-05-08] MEDS: CITALOPRAM 20 MG TABLET PO SCH (09:15)
[2019-05-08] MEDS: Ritonavir [Norvir] 100 MG PO SCH (09:15)
[2019-05-08] MEDS: BUDESONIDE/FORMOTEROL 160-4.5 INHALER 6 GM INH SCH ×2 (09:15→21:24)
[2019-05-08] MEDS: LEVOFLOXACIN INJ 750 MG in PREMIX 1 EACH IV SCH (09:17)
[2019-05-08] MEDS ORDERED: PHENOL 1.4% THROAT SPRAY 177 ML BOTTLE PO PRN (10:50)
[2019-05-08] MEDS: DOCUSATE SODIUM 100 MG CAPSULE PO SCH ×2 (12:44→21:27)
[2019-05-08] MEDS: ENOXAPARIN 40 MG/0.4 ML SYRINGE SUBCUT SCH (21:27)
[2019-05-08] MEDS: QUEtiapine 25 MG TABLET PO SCH (21:27)
[2019-05-09] MEDS: ALBUTEROL/IPRATROPIUM 3 ML NEB RESP TX SCH ×4 (00:23→20:58)
[2019-05-09] MEDS: VANCOMYCIN INJ 1,250 MG in SODIUM CHLORIDE 0.9% 250 ML IV SCH ×2 (00:58→12:34)
[2019-05-09] MEDS: SULFAMETH/TRIMETH INJ 120 MG in DEXTROSE 5% 250 ML IV SCH ×3 (01:05→12:51)
[2019-05-09] MEDS: PIPERACILLIN/TAZOBACTAM 3,375 MG in SODIUM CHLORIDE 0.9% 100 ML IV SCH ×3 (01:06→17:33)
[2019-05-09] MEDS ORDERED: FUROSEMIDE 40 MG/4 ML VIAL IV ONE (09:06)
[2019-05-09] MEDS: ATAZANAVIR 300 MG PO SCH (09:09)
[2019-05-09] MEDS: Ritonavir [Norvir] 100 MG PO SCH (09:09)
[2019-05-09] MEDS: INSULIN LISPRO 100 UNIT/ML SUBCUT SCH ×4 (09:10→21:07)
[2019-05-09] MEDS: BUDESONIDE/FORMOTEROL 160-4.5 INHALER 6 GM INH SCH ×2 (09:10→23:06)
[2019-05-09] MEDS: CITALOPRAM 20 MG TABLET PO SCH (09:10)
[2019-05-09] MEDS: POLYETHYLENE GLYCOL POWDER 17 GM PACK PO SCH (09:10)
[2019-05-09] MEDS: MELOXICAM 7.5 MG TABLET PO SCH (09:11)
[2019-05-09] MEDS: DOCUSATE SODIUM 100 MG CAPSULE PO SCH ×2 (09:11→21:09)
[2019-05-09] MEDS: CETIRIZINE 10 MG TABLET PO SCH (09:11)
[2019-05-09] MEDS: predniSONE 20 MG TABLET PO SCH (09:11)
[2019-05-09] MEDS: POTASSIUM CHLORIDE 10 MEQ TABLET PO SCH (09:11)
[2019-05-09] MEDS: CYPROHEPTADINE 4 MG TABLET PO SCH ×3 (09:11→21:08)
[2019-05-09] MEDS: LEVOFLOXACIN INJ 750 MG in PREMIX 1 EACH IV SCH (09:24)
[2019-05-09] MEDS: ARFORMOTEROL 15 MCG/2 ML NEB RESP TX SCH ×2 (09:43→20:58)
[2019-05-09] MEDS: DORNASE ALFA 2.5 MG/2.5 ML VIAL RESP TX SCH ×2 (09:44→20:58)
[2019-05-09] MEDS ORDERED: LINACLOTIDE 145 MCG CAPSULE PO PRN (13:12)
[2019-05-09] MEDS ORDERED: FLUTICASONE 50 MCG NASAL SPRAY 16 GM BOTTLE BOTH NARES PRN (13:12)
[2019-05-09] MEDS ORDERED: METHOCARBAMOL 500 MG TABLET PO PRN (13:12)
[2019-05-09] MEDS: INSULIN GLARGINE 100 UNIT/ML SUBCUT SCH (14:35)
[2019-05-09] MEDS: MORPHINE ER 15 MG TABLET PO SCH (21:08)
[2019-05-09] MEDS: SULFAMETHOX/TRIMETHOPRIM 800-160 MG TABLET PO SCH (21:08)
[2019-05-09] MEDS: ENOXAPARIN 40 MG/0.4 ML SYRINGE SUBCUT SCH (21:08)
[2019-05-09] MEDS: QUEtiapine 25 MG TABLET PO SCH (21:08)
[2019-05-09] MEDS: busPIRone 10 MG TABLET PO SCH (21:09)
[2019-05-09] MEDS: DULoxetine 30 MG CAPSULE PO SCH (21:09)
[2019-05-10] MEDS: VANCOMYCIN INJ 1,250 MG in SODIUM CHLORIDE 0.9% 250 ML IV SCH (00:03)
[2019-05-10] MEDS: RACEPINEPHRINE 0.5 ML NEB RESP TX SCH ×3 (00:23→16:06)
[2019-05-10] MEDS: ALBUTEROL/IPRATROPIUM 3 ML NEB RESP TX SCH ×4 (00:23→20:30)
[2019-05-10] MEDS: PIPERACILLIN/TAZOBACTAM 3,375 MG in SODIUM CHLORIDE 0.9% 100 ML IV SCH ×3 (03:20→17:18)
[2019-05-10 05:04] LABS: Basophils % 0.1 % (0.0-0.8); Hematocrit 29.1 VOL% (42.0-52.0); Hemoglobin 9.7 GM/DL (14.0-18.0); Immature Granulocytes % 1.5 %; Immature Granulocytes Absolute 0.14 #; Lymphocytes # 1.1 10*3/uL (1.4-4.0); Lymphocytes % 11.6 % (21.2-54.2); Mean Corpuscular HGB Conc 33.3 GM/DL (32-36); Mean Corpuscular Volume 87.9 FL (87-102); Mean Platelet Volume 12.8 FL (9.6-12.0); Monocytes % 9.6 % (1.7-12.7); NRBC # 0.03 10*3/uL; Neutrophils % 77.2 % (38.7-73.9); Platelet Count 181 T/CUMM (130-400); Red Blood Count 3.31 MC/CUMM (3.8-5.5); White Blood Count 9.3 T/CUMM (4-12)
[2019-05-10 05:37] LABS: Calcium 8.7 MG/DL (8.5-10.1); Osmolality,Calculated 300.3 MOS/KG (273-304)
[2019-05-10] MEDS: ARFORMOTEROL 15 MCG/2 ML NEB RESP TX SCH ×2 (07:59→20:30)
[2019-05-10] MEDS: DORNASE ALFA 2.5 MG/2.5 ML VIAL RESP TX SCH ×2 (07:59→20:36)
[2019-05-10] MEDS: INSULIN LISPRO 100 UNIT/ML SUBCUT SCH ×4 (09:13→20:50)
[2019-05-10] MEDS: INSULIN GLARGINE 100 UNIT/ML SUBCUT SCH (09:14)
[2019-05-10] MEDS: Ritonavir [Norvir] 100 MG PO SCH (09:14)
[2019-05-10] MEDS: busPIRone 10 MG TABLET PO SCH ×2 (09:16→20:51)
[2019-05-10] MEDS: DULoxetine 30 MG CAPSULE PO SCH ×2 (09:16→20:51)
[2019-05-10] MEDS: POLYETHYLENE GLYCOL POWDER 17 GM PACK PO SCH (09:16)
[2019-05-10] MEDS: SULFAMETHOX/TRIMETHOPRIM 800-160 MG TABLET PO SCH ×2 (09:16→20:51)
[2019-05-10] MEDS: MELOXICAM 7.5 MG TABLET PO SCH (09:17)
[2019-05-10] MEDS: POTASSIUM CHLORIDE 10 MEQ TABLET PO SCH (09:17)
[2019-05-10] MEDS: DOCUSATE SODIUM 100 MG CAPSULE PO SCH ×2 (09:17→20:51)
[2019-05-10] MEDS: CETIRIZINE 10 MG TABLET PO SCH (09:17)
[2019-05-10] MEDS: predniSONE 20 MG TABLET PO SCH (09:17)
[2019-05-10] MEDS: CYPROHEPTADINE 4 MG TABLET PO SCH ×3 (09:17→20:51)
[2019-05-10] MEDS: LEVOFLOXACIN 750 MG TABLET PO SCH (09:17)
[2019-05-10] MEDS: CITALOPRAM 20 MG TABLET PO SCH (09:17)
[2019-05-10] MEDS: MORPHINE ER 15 MG TABLET PO SCH ×2 (09:18→20:51)
[2019-05-10] MEDS: ATAZANAVIR 300 MG PO SCH (09:19)
[2019-05-10] MEDS: BUDESONIDE/FORMOTEROL 160-4.5 INHALER 6 GM INH SCH ×2 (09:19→20:52)
[2019-05-10] MEDS: QUEtiapine 25 MG TABLET PO SCH (20:51)
[2019-05-10] MEDS: ENOXAPARIN 40 MG/0.4 ML SYRINGE SUBCUT SCH (22:06)
[2019-05-11] MEDS: VANCOMYCIN INJ 1,250 MG in SODIUM CHLORIDE 0.9% 250 ML IV SCH (00:01)
[2019-05-11] MEDS: RACEPINEPHRINE 0.5 ML NEB RESP TX SCH ×2 (00:40→07:55)
[2019-05-11] MEDS: ALBUTEROL/IPRATROPIUM 3 ML NEB RESP TX SCH ×2 (00:40→07:55)
[2019-05-11] MEDS: PIPERACILLIN/TAZOBACTAM 3,375 MG in SODIUM CHLORIDE 0.9% 100 ML IV SCH ×2 (01:50→09:40)
[2019-05-11 05:41] LABS: Basophils % 0.1 % (0.0-0.8); Hematocrit 28.9 VOL% (42.0-52.0); Hemoglobin 9.5 GM/DL (14.0-18.0); Immature Granulocytes % 2.5 %; Immature Granulocytes Absolute 0.23 #; Lymphocytes # 1.1 10*3/uL (1.4-4.0); Lymphocytes % 12.1 % (21.2-54.2); Mean Corpuscular HGB Conc 32.9 GM/DL (32-36); Mean Corpuscular Volume 90.3 FL (87-102); Mean Platelet Volume 12.7 FL (9.6-12.0); Monocytes % 9.7 % (1.7-12.7); NRBC # 0.02 10*3/uL; Neutrophils % 75.6 % (38.7-73.9); Platelet Count 173 T/CUMM (130-400); Red Cell Distribution Width 16.6 % (9.3-17.3); White Blood Count 9.2 T/CUMM (4-12)
[2019-05-11 05:55] LABS: Calcium 9.1 MG/DL (8.5-10.1); Osmolality,Calculated 296.1 MOS/KG (273-304)
[2019-05-11] MEDS: ARFORMOTEROL 15 MCG/2 ML NEB RESP TX SCH (08:15)
[2019-05-11] MEDS: DORNASE ALFA 2.5 MG/2.5 ML VIAL RESP TX SCH (08:21)
[2019-05-11 08:58] VITALS: BP 153/86
[2019-05-11] MEDS: CYPROHEPTADINE 4 MG TABLET PO SCH (09:38)
[2019-05-11] MEDS: CETIRIZINE 10 MG TABLET PO SCH (09:38)
[2019-05-11] MEDS: MELOXICAM 7.5 MG TABLET PO SCH (09:38)
[2019-05-11] MEDS: busPIRone 10 MG TABLET PO SCH (09:38)
[2019-05-11] MEDS: DULoxetine 30 MG CAPSULE PO SCH (09:38)
[2019-05-11] MEDS: Ritonavir [Norvir] 100 MG PO SCH (09:38)
[2019-05-11] MEDS: CITALOPRAM 20 MG TABLET PO SCH (09:38)
[2019-05-11] MEDS: LEVOFLOXACIN 750 MG TABLET PO SCH (09:39)
[2019-05-11] MEDS: predniSONE 20 MG TABLET PO SCH (09:39)
[2019-05-11] MEDS: MORPHINE ER 15 MG TABLET PO SCH (09:39)
[2019-05-11] MEDS: DOCUSATE SODIUM 100 MG CAPSULE PO SCH (09:39)
[2019-05-11] MEDS: SULFAMETHOX/TRIMETHOPRIM 800-160 MG TABLET PO SCH (09:39)
[2019-05-11] MEDS: POTASSIUM CHLORIDE 10 MEQ TABLET PO SCH (09:39)
[2019-05-11] MEDS: INSULIN LISPRO 100 UNIT/ML SUBCUT SCH (09:40)
[2019-05-11] MEDS: INSULIN GLARGINE 100 UNIT/ML SUBCUT SCH (09:40)
[2019-05-11] MEDS: ATAZANAVIR 300 MG PO SCH (09:40)
[2019-05-11] MEDS: BUDESONIDE/FORMOTEROL 160-4.5 INHALER 6 GM INH SCH (09:45)
[2019-05-11] MEDS: POLYETHYLENE GLYCOL POWDER 17 GM PACK PO SCH (09:45)
== END 2019-05-11 11:44 | disposition home health service (06) | DRG 871 ==
LOC: EDBD → EDUNIT# → N.ED 19:58 → N.EDINP 21:39 → SUATTDRO 21:39 → N.EDINP 23:59 → N.TELES 05-06 11:36
PROVIDERS: ADMIT Internal Medicine; ATTEND Hospitalist

== ENCOUNTER 2019-06-01 12:08 | Inpatient (IN) ==
[2019-06-01] MEDS ORDERED: SODIUM CHLORIDE 0.9% 500 ML IV STA (12:37)
[2019-06-01 13:18] LABS: Basophils % 0.3 % (0.0-0.8); Eosinophils % 0.2 % (0.00-10.9); Hematocrit 44.9 VOL% (42.0-52.0); Hemoglobin 14.6 GM/DL (14.0-18.0); Immature Granulocytes % 1.8 %; Immature Granulocytes Absolute 0.19 #; Lymphocytes # 1.6 10*3/uL (1.4-4.0); Lymphocytes % 15.5 % (21.2-54.2); Mean Corpuscular HGB Conc 32.5 GM/DL (32-36); Mean Corpuscular Volume 90.7 FL (87-102); Mean Platelet Volume 12.6 FL (9.6-12.0); Monocytes % 7.7 % (1.7-12.7); Neutrophils % 74.5 % (38.7-73.9); Platelet Count 231 T/CUMM (130-400); Red Blood Count 4.95 MC/CUMM (3.8-5.5); Red Cell Distribution Width 16.9 % (9.3-17.3); White Blood Count 10.4 T/CUMM (4-12)
[2019-06-01 13:41] LABS: Albumin 3.3 G/DL (3.4-5.0); Bilirubin,Total 1.6 MG/DL (0.2-1.0); Calcium 10.1 MG/DL (8.5-10.1); Osmolality,Calculated 307.5 MOS/KG (273-304); Total Protein 8.8 G/DL (6.4-8.3)
[2019-06-01] MEDS ORDERED: SODIUM CHLORIDE 0.9% 1,000 ML IV STA (14:53)
[2019-06-01] MEDS ORDERED: MEROPENEM 500 MG in SODIUM CHLORIDE 0.9% 100 ML IV ONE (14:58)
[2019-06-01] MEDS ORDERED: ACETAMINOPHEN 325 MG TABLET PO PRN (16:08)
[2019-06-01] MEDS ORDERED: LACTULOSE 20 GM/30 ML UDCUP PO PRN (16:08)
[2019-06-01] MEDS ORDERED: MORPHINE 4 MG/1 ML VIAL IV PRN (16:08)
[2019-06-01] MEDS ORDERED: GLUCAGON 1 MG VIAL IM PRN (16:08)
[2019-06-01] MEDS ORDERED: DEXTROSE 10% 250 ML BAG IV PRN (16:08)
[2019-06-01] MEDS ORDERED: FLUTICASONE 50 MCG NASAL SPRAY 16 GM BOTTLE BOTH NARES PRN (16:16)
[2019-06-01 16:32] LABS: Troponin I 0.073 NG/ML (0.00-0.045)
[2019-06-01 16:39] LABS: Thyroid Stimulating Hormone 2.36 uIU/ml (0.358-3.74)
[2019-06-01] MEDS ORDERED: SODIUM POLYSTYRENE SULFATE 15 GM/60 ML BOTTLE PO STA (16:42)
[2019-06-01 16:43] LABS: Risk Ratio 3.47; VLDL CHOLESTEROL 41.4 MG/DL
[2019-06-01 17:17] LABS: Apearance,Urine Slightly Hazy (Clear); Bacteria,Urine Occasional /HPF (Few); Bilirubin,Urine Negative (Negative); Blood, Urine Large mg/dL (Negative); Glucose,Urine (UA) Negative (Negative); Hyaline Casts,Urine 5 /LPF (0-3); Ketones,Urine Negative (Negative); Mucus,Urine Occasional /LPF (Occasional); Nitrite,Urine Negative (Negative); Protein,Urine 30 MG/DL; RBC,Urine 327 /HPF (0-4); Squamous Epithelial Cell,Urine Occasional /HPF (0-10); Urine Color Dark Yellow (Yellow); Urine Specific Gravity 1.016 (1.001-1.035); WBC,Urine 1 /HPF (0-6)
[2019-06-01] MEDS: ENOXAPARIN 30 MG/0.3 ML SYRINGE SUBCUT SCH (17:31)
[2019-06-01 17:38] LABS: Barbiturates Screen,Urine Negative (Negative); Benzodiazepines Screen,Urine Negative (Negative); Cannabinoid Screen,Urine Negative (Negative); Opiate Screen,Urine Positive (Negative); Phencyclidine Screen,Urine Negative (Negative)
[2019-06-01] MEDS: INSULIN REGULAR 100 UNIT/ML SUBCUT SCH ×2 (18:02→21:10)
[2019-06-01] MEDS: SODIUM CHLORIDE 0.9% 1,000 ML IV SCH (18:21)
[2019-06-01] MEDS: ARFORMOTEROL 15 MCG/2 ML NEB RESP TX SCH (19:37)
[2019-06-01] MEDS: DORNASE ALFA 2.5 MG/2.5 ML VIAL RESP TX SCH (19:37)
[2019-06-01] MEDS: ALBUTEROL/IPRATROPIUM 3 ML NEB RESP TX SCH (19:37)
[2019-06-01] MEDS ORDERED: LINACLOTIDE 145 MCG CAPSULE PO PRN (20:00)
[2019-06-01] MEDS: PREGABALIN 100 MG CAPSULE PO SCH (20:38)
[2019-06-01] MEDS: MORPHINE ER 30 MG TABLET PO SCH (20:38)
[2019-06-01] MEDS: METHOCARBAMOL 500 MG TABLET PO PRN (20:38)
[2019-06-01] MEDS: DULoxetine 30 MG CAPSULE PO SCH (20:38)
[2019-06-01] MEDS: busPIRone 10 MG TABLET PO SCH (20:38)
[2019-06-01] MEDS: RANITIDINE 150 MG TABLET PO SCH (20:38)
[2019-06-01] MEDS ORDERED: INFLUENZA VIRUS VACCINE 0.5 ML SYRINGE IM ONE (22:27)
[2019-06-02] MEDS: SODIUM CHLORIDE 0.9% 1,000 ML IV SCH (03:13)
[2019-06-02 05:07] LABS: Albumin 2.6 G/DL (3.4-5.0); Bilirubin,Total 0.9 MG/DL (0.2-1.0); Calcium 8.3 MG/DL (8.5-10.1); Osmolality,Calculated 310.3 MOS/KG (273-304); Total Protein 6.4 G/DL (6.4-8.3)
[2019-06-02 06:08] LABS: Basophils % 0.3 % (0.0-0.8); Eosinophils # 0.1 10*3/uL (0.0-0.87); Eosinophils % 0.9 % (0.00-10.9); Hematocrit 31.6 VOL% (42.0-52.0); Immature Granulocytes % 1.5 %; Lymphocytes # 1.5 10*3/uL (1.4-4.0); Lymphocytes % 23.5 % (21.2-54.2); Mean Corpuscular HGB Conc 31.6 GM/DL (32-36); Mean Corpuscular Volume 92.9 FL (87-102); Monocytes % 12.1 % (1.7-12.7); Neutrophils % 61.7 % (38.7-73.9); Platelet Count 188 T/CUMM (130-400); Red Cell Distribution Width 16.8 % (9.3-17.3)
[2019-06-02 06:18] LABS: White Blood Count 6.5 T/CUMM (4-12)
[2019-06-02] MEDS: ARFORMOTEROL 15 MCG/2 ML NEB RESP TX SCH ×2 (07:57→20:10)
[2019-06-02] MEDS: ALBUTEROL/IPRATROPIUM 3 ML NEB RESP TX SCH ×4 (07:57→20:10)
[2019-06-02] MEDS: DORNASE ALFA 2.5 MG/2.5 ML VIAL RESP TX SCH ×2 (09:00→20:17)
[2019-06-02] MEDS ORDERED: MELOXICAM 7.5 MG TABLET PO SCH (09:00)
[2019-06-02] MEDS: RANITIDINE 150 MG TABLET PO SCH ×2 (09:48→22:22)
[2019-06-02] MEDS: CITALOPRAM 20 MG TABLET PO SCH (09:49)
[2019-06-02] MEDS: PANTOPRAZOLE 40 MG TABLET PO SCH (09:49)
[2019-06-02] MEDS: DULoxetine 30 MG CAPSULE PO SCH ×2 (09:49→22:22)
[2019-06-02] MEDS: busPIRone 10 MG TABLET PO SCH ×2 (09:49→22:23)
[2019-06-02] MEDS: CETIRIZINE 10 MG TABLET PO SCH (09:49)
[2019-06-02] MEDS: PREGABALIN 100 MG CAPSULE PO SCH ×2 (09:50→22:23)
[2019-06-02] MEDS: sitaGLIPtin 25 MG TABLET PO SCH (09:50)
[2019-06-02] MEDS: SODIUM CHLORIDE 0.45% 1,000 ML IV SCH ×2 (10:03→18:18)
[2019-06-02] MEDS ORDERED: SODIUM CHLORIDE 0.9% 500 ML IV ONE (11:32)
[2019-06-02] MEDS: INSULIN REGULAR 100 UNIT/ML SUBCUT SCH ×4 (11:35→22:23)
[2019-06-02] MEDS: MORPHINE ER 30 MG TABLET PO SCH (11:36)
[2019-06-02] MEDS ORDERED: SODIUM CHLORIDE 0.9% 500 ML IV STA (16:39)
[2019-06-02] MEDS ORDERED: SODIUM CHLORIDE 0.9% 1,000 ML IV STA (16:46)
[2019-06-02] MEDS ORDERED: HYDROCORTISONE 100 MG VIAL IV ONE (16:48)
[2019-06-02] MEDS ORDERED: DOPamine 800 MG/250 ML PREMIX IV PRN (16:48)
[2019-06-02] MEDS ORDERED: SODIUM CHLORIDE 0.9% 1,000 ML IV ONE (16:51)
[2019-06-02] MEDS: ENOXAPARIN 30 MG/0.3 ML SYRINGE SUBCUT SCH (16:59)
[2019-06-02 17:35] LABS: Basophils % 0.1 % (0.0-0.8); Eosinophils # 0.1 10*3/uL (0.0-0.87); Eosinophils % 0.8 % (0.00-10.9); Hematocrit 29.6 VOL% (42.0-52.0); Hemoglobin 9.5 GM/DL (14.0-18.0); Immature Granulocytes % 1.4 %; Immature Granulocytes Absolute 0.11 #; Lymphocytes # 1.9 10*3/uL (1.4-4.0); Lymphocytes % 23.7 % (21.2-54.2); Mean Corpuscular HGB Conc 32.1 GM/DL (32-36); Mean Corpuscular Volume 93.7 FL (87-102); Mean Platelet Volume 11.4 FL (9.6-12.0); Monocytes % 8.9 % (1.7-12.7); Neutrophils % 65.1 % (38.7-73.9); Platelet Count 185 T/CUMM (130-400); Red Blood Count 3.16 MC/CUMM (3.8-5.5); Red Cell Distribution Width 16.8 % (9.3-17.3); White Blood Count 7.9 T/CUMM (4-12)
[2019-06-02 17:55] LABS: Alanine Aminotransferase 115 U/L (16-61); Albumin 2.2 G/DL (3.4-5.0); Alkaline Phosphatase 116 U/L (45-117); Aspartate Amino Transferase 82 U/L (0-37); Blood Urea Nitrogen 76 MG/DL (7-18); Calcium 7.5 MG/DL (8.5-10.1); Estimated Glom Filtration Rate 22 ML/MIN; Glucose 175 MG/DL (74-106); Osmolality,Calculated 301.7 MOS/KG (273-304); Total Protein 5.8 G/DL (6.4-8.3)
[2019-06-02] MEDS: cefTRIAXone 1,000 MG in SYRINGE 1 EACH IV SCH (18:10)
[2019-06-02] MEDS: LEVOFLOXACIN INJ 500 MG in PREMIX 1 EACH IV SCH (18:18)
[2019-06-03] MEDS: SODIUM CHLORIDE 0.45% 1,000 ML IV SCH ×5 (01:35→20:38)
[2019-06-03] MEDS: HYDROCORTISONE 100 MG VIAL IV SCH ×3 (01:47→17:50)
[2019-06-03 05:23] LABS: Basophils % 0.1 % (0.0-0.8); Hemoglobin 9.1 GM/DL (14.0-18.0); Immature Granulocytes % 1.5 %; Immature Granulocytes Absolute 0.13 #; Lymphocytes # 0.5 10*3/uL (1.4-4.0); Lymphocytes % 5.8 % (21.2-54.2); Mean Corpuscular HGB Conc 31.4 GM/DL (32-36); Mean Corpuscular Volume 93.9 FL (87-102); Mean Platelet Volume 11.8 FL (9.6-12.0); Monocytes % 2.2 % (1.7-12.7); Neutrophils % 90.4 % (38.7-73.9); Platelet Count 183 T/CUMM (130-400); Red Blood Count 3.09 MC/CUMM (3.8-5.5); Red Cell Distribution Width 16.1 % (9.3-17.3); White Blood Count 8.8 T/CUMM (4-12)
[2019-06-03 05:48] LABS: Bilirubin,Total 0.4 MG/DL (0.2-1.0); Calcium 7.8 MG/DL (8.5-10.1); Osmolality,Calculated 301.5 MOS/KG (273-304); Total Protein 5.7 G/DL (6.4-8.3)
[2019-06-03] MEDS: ALBUTEROL/IPRATROPIUM 3 ML NEB RESP TX SCH ×4 (07:42→19:57)
[2019-06-03] MEDS: ARFORMOTEROL 15 MCG/2 ML NEB RESP TX SCH ×2 (07:42→19:57)
[2019-06-03] MEDS: DORNASE ALFA 2.5 MG/2.5 ML VIAL RESP TX SCH ×2 (07:50→19:57)
[2019-06-03] MEDS: INSULIN REGULAR 100 UNIT/ML SUBCUT SCH ×4 (08:22→21:52)
[2019-06-03] MEDS: CITALOPRAM 20 MG TABLET PO SCH (09:01)
[2019-06-03] MEDS: PANTOPRAZOLE 40 MG TABLET PO SCH (09:02)
[2019-06-03] MEDS: PREGABALIN 100 MG CAPSULE PO SCH ×2 (09:02→21:52)
[2019-06-03] MEDS: CETIRIZINE 10 MG TABLET PO SCH (09:02)
[2019-06-03] MEDS: DULoxetine 30 MG CAPSULE PO SCH ×2 (09:02→21:52)
[2019-06-03] MEDS: busPIRone 10 MG TABLET PO SCH ×2 (09:02→21:53)
[2019-06-03] MEDS: RANITIDINE 150 MG TABLET PO SCH ×2 (09:02→21:52)
[2019-06-03] MEDS: ATAZANAVIR 300 MG PO SCH (12:21)
[2019-06-03] MEDS: NON-FORMULARY MEDICATION (Dolutegravir [Tivicay] 50 MG) PO SCH (12:22)
[2019-06-03] MEDS: RILPIVIRINE 25 MG PO SCH (12:22)
[2019-06-03] MEDS: sitaGLIPtin 25 MG TABLET PO SCH (12:22)
[2019-06-03] MEDS: NON-FORMULARY MEDICATION (Ritonavir [Norvir] 100 MG) PO SCH (12:22)
[2019-06-03] MEDS: MORPHINE ER 15 MG TABLET PO PRN ×2 (12:59→21:53)
[2019-06-03] MEDS: SODIUM CHLORIDE 0.9% 1,000 ML IV SCH (17:44)
[2019-06-03] MEDS: cefTRIAXone 1,000 MG in SYRINGE 1 EACH IV SCH (17:46)
[2019-06-03] MEDS: ENOXAPARIN 30 MG/0.3 ML SYRINGE SUBCUT SCH (17:51)
[2019-06-04] MEDS: HYDROCORTISONE 100 MG VIAL IV SCH ×3 (01:09→17:28)
[2019-06-04] MEDS: SODIUM CHLORIDE 0.45% 1,000 ML IV SCH ×4 (02:29→23:55)
[2019-06-04 06:17] LABS: Basophils % 0.1 % (0.0-0.8); Hematocrit 27.6 VOL% (42.0-52.0); Hemoglobin 8.9 GM/DL (14.0-18.0); Immature Granulocytes % 1.7 %; Immature Granulocytes Absolute 0.13 #; Lymphocytes # 0.5 10*3/uL (1.4-4.0); Lymphocytes % 6.8 % (21.2-54.2); Mean Corpuscular HGB Conc 32.2 GM/DL (32-36); Mean Corpuscular Volume 93.6 FL (87-102); Mean Platelet Volume 12.1 FL (9.6-12.0); Monocytes % 4.1 % (1.7-12.7); Neutrophils % 87.3 % (38.7-73.9); Platelet Count 172 T/CUMM (130-400); Red Blood Count 2.95 MC/CUMM (3.8-5.5); Red Cell Distribution Width 15.7 % (9.3-17.3); White Blood Count 7.6 T/CUMM (4-12)
[2019-06-04 06:55] LABS: Calcium 7.8 MG/DL (8.5-10.1); Osmolality,Calculated 298.8 MOS/KG (273-304)
[2019-06-04 06:58] LABS: Prealbumin 35.6 MG/DL (20-40)
[2019-06-04 07:01] LABS: Alanine Aminotransferase 172 U/L (16-61); Alkaline Phosphatase 123 U/L (45-117); Aspartate Amino Transferase 109 U/L (0-37); Bilirubin,Total < 0.39 MG/DL (0.2-1.0); Blood Urea Nitrogen 52 MG/DL (7-18); Calcium 7.5 MG/DL (8.5-10.1); Estimated Glom Filtration Rate 54 ML/MIN; Glucose 296 MG/DL (74-106); Osmolality,Calculated 297.8 MOS/KG (273-304); Total Protein 5.6 G/DL (6.4-8.3)
[2019-06-04] MEDS: ARFORMOTEROL 15 MCG/2 ML NEB RESP TX SCH ×2 (07:23→19:13)
[2019-06-04] MEDS: ALBUTEROL/IPRATROPIUM 3 ML NEB RESP TX SCH ×4 (07:23→19:13)
[2019-06-04] MEDS: DORNASE ALFA 2.5 MG/2.5 ML VIAL RESP TX SCH ×2 (07:37→19:20)
[2019-06-04] MEDS: sitaGLIPtin 25 MG TABLET PO SCH (08:51)
[2019-06-04] MEDS: busPIRone 10 MG TABLET PO SCH ×2 (08:51→21:51)
[2019-06-04] MEDS: guaiFENesin/DM ER 600-30 MG TABLET PO PRN ×2 (08:51→21:49)
[2019-06-04] MEDS: PANTOPRAZOLE 40 MG TABLET PO SCH (08:51)
[2019-06-04] MEDS: PREGABALIN 100 MG CAPSULE PO SCH ×2 (08:51→21:49)
[2019-06-04] MEDS: RANITIDINE 150 MG TABLET PO SCH ×2 (08:51→21:49)
[2019-06-04] MEDS: CITALOPRAM 20 MG TABLET PO SCH (08:51)
[2019-06-04] MEDS: CETIRIZINE 10 MG TABLET PO SCH (08:52)
[2019-06-04] MEDS: DULoxetine 30 MG CAPSULE PO SCH ×2 (08:52→21:51)
[2019-06-04] MEDS: INSULIN REGULAR 100 UNIT/ML SUBCUT SCH ×4 (08:52→21:49)
[2019-06-04] MEDS: ATAZANAVIR 300 MG PO SCH (08:52)
[2019-06-04] MEDS: NON-FORMULARY MEDICATION (Ritonavir [Norvir] 100 MG) PO SCH (09:00)
[2019-06-04] MEDS: NON-FORMULARY MEDICATION (Dolutegravir [Tivicay] 50 MG) PO SCH (09:00)
[2019-06-04] MEDS: RILPIVIRINE 25 MG PO SCH (09:00)
[2019-06-04] MEDS: LEVOFLOXACIN INJ 500 MG in PREMIX 1 EACH IV SCH (17:28)
[2019-06-04] MEDS: HYDROcod/ACETAMIN 7.5-325 MG/15 ML UDCUP PEG PRN ×2 (17:29→21:50)
[2019-06-04] MEDS: METHOCARBAMOL 500 MG TABLET PO PRN (21:49)
[2019-06-05] MEDS: HYDROCORTISONE 100 MG VIAL IV SCH ×3 (01:10→16:59)
[2019-06-05] MEDS: SODIUM CHLORIDE 0.45% 1,000 ML IV SCH ×3 (05:58→17:51)
[2019-06-05 06:02] LABS: Basophils % 0.3 % (0.0-0.8); Hematocrit 29.7 VOL% (42.0-52.0); Hemoglobin 9.6 GM/DL (14.0-18.0); Immature Granulocytes % 2.8 %; Lymphocytes # 0.6 10*3/uL (1.4-4.0); Lymphocytes % 5.3 % (21.2-54.2); Mean Corpuscular HGB Conc 32.3 GM/DL (32-36); Mean Platelet Volume 11.8 FL (9.6-12.0); Monocytes % 3.8 % (1.7-12.7); Neutrophils % 87.8 % (38.7-73.9); Platelet Count 173 T/CUMM (130-400); Red Blood Count 3.23 MC/CUMM (3.8-5.5); Red Cell Distribution Width 15.6 % (9.3-17.3); White Blood Count 10.8 T/CUMM (4-12)
[2019-06-05 06:26] LABS: Calcium 8.2 MG/DL (8.5-10.1); Osmolality,Calculated 293.8 MOS/KG (273-304)
[2019-06-05] MEDS: INSULIN REGULAR 100 UNIT/ML SUBCUT SCH ×4 (08:02→21:03)
[2019-06-05] MEDS: ARFORMOTEROL 15 MCG/2 ML NEB RESP TX SCH ×2 (08:23→19:15)
[2019-06-05] MEDS: ALBUTEROL/IPRATROPIUM 3 ML NEB RESP TX SCH ×4 (08:23→19:15)
[2019-06-05] MEDS: DORNASE ALFA 2.5 MG/2.5 ML VIAL RESP TX SCH ×2 (08:24→19:15)
[2019-06-05] MEDS: RILPIVIRINE 25 MG PO SCH (09:36)
[2019-06-05] MEDS: LACTATED RINGERS 1,000 ML IV SCH (09:36)
[2019-06-05] MEDS: NON-FORMULARY MEDICATION (Ritonavir [Norvir] 100 MG) PO SCH (09:36)
[2019-06-05] MEDS: ATAZANAVIR 300 MG PO SCH (09:37)
[2019-06-05] MEDS: NON-FORMULARY MEDICATION (Dolutegravir [Tivicay] 50 MG) PO SCH (09:37)
[2019-06-05] MEDS ORDERED: propofoL 200 MG/20 ML VIAL IV ONE (12:07)
[2019-06-05] MEDS ORDERED: LIDOCAINE 2% 5 ML VIAL ONE (12:07)
[2019-06-05] MEDS: busPIRone 10 MG TABLET PO SCH ×2 (13:20→21:02)
[2019-06-05] MEDS: sitaGLIPtin 25 MG TABLET PO SCH (13:20)
[2019-06-05] MEDS: DULoxetine 30 MG CAPSULE PO SCH ×2 (13:20→21:03)
[2019-06-05] MEDS: CETIRIZINE 10 MG TABLET PO SCH (13:21)
[2019-06-05] MEDS: CITALOPRAM 20 MG TABLET PO SCH (13:21)
[2019-06-05] MEDS: RANITIDINE 150 MG TABLET PO SCH ×2 (13:21→21:02)
[2019-06-05] MEDS: PANTOPRAZOLE 40 MG TABLET PO SCH (13:21)
[2019-06-05] MEDS: PREGABALIN 100 MG CAPSULE PO SCH ×2 (13:21→21:03)
[2019-06-05] MEDS: HYDROcod/ACETAMIN 7.5-325 MG/15 ML UDCUP PEG PRN ×2 (13:23→16:58)
[2019-06-05] MEDS ORDERED: TUBERCULIN SKIN TEST 0.1 ML SYRINGE INTRADERM ONE (14:42)
[2019-06-05] MEDS: METHOCARBAMOL 500 MG TABLET PO PRN (16:59)
[2019-06-06] MEDS: HYDROCORTISONE 100 MG VIAL IV SCH ×3 (01:53→16:50)
[2019-06-06 05:22] LABS: Calcium 8.5 MG/DL (8.5-10.1); Osmolality,Calculated 286.8 MOS/KG (273-304)
[2019-06-06] MEDS: HYDROcod/ACETAMIN 7.5-325 MG/15 ML UDCUP PEG PRN ×2 (07:04→13:24)
[2019-06-06] MEDS: DORNASE ALFA 2.5 MG/2.5 ML VIAL RESP TX SCH ×2 (07:50→20:00)
[2019-06-06] MEDS: ALBUTEROL/IPRATROPIUM 3 ML NEB RESP TX SCH ×4 (07:50→19:59)
[2019-06-06] MEDS: ARFORMOTEROL 15 MCG/2 ML NEB RESP TX SCH ×2 (07:50→19:59)
[2019-06-06] MEDS: SODIUM CHLORIDE 0.45% 1,000 ML IV SCH ×2 (08:42→08:46)
[2019-06-06] MEDS: INSULIN REGULAR 100 UNIT/ML SUBCUT SCH ×4 (08:46→21:13)
[2019-06-06] MEDS: PANTOPRAZOLE 40 MG TABLET PO SCH (08:47)
[2019-06-06] MEDS: RANITIDINE 150 MG TABLET PO SCH ×2 (08:47→20:11)
[2019-06-06] MEDS: CITALOPRAM 20 MG TABLET PO SCH (08:47)
[2019-06-06] MEDS: sitaGLIPtin 25 MG TABLET PO SCH (08:47)
[2019-06-06] MEDS: busPIRone 10 MG TABLET PO SCH ×2 (08:47→20:11)
[2019-06-06] MEDS: DULoxetine 30 MG CAPSULE PO SCH ×2 (08:47→20:11)
[2019-06-06] MEDS: PREGABALIN 100 MG CAPSULE PO SCH ×2 (08:47→20:11)
[2019-06-06] MEDS: METHOCARBAMOL 500 MG TABLET PO PRN ×2 (08:47→13:24)
[2019-06-06] MEDS: CETIRIZINE 10 MG TABLET PO SCH (08:47)
[2019-06-06] MEDS: LACTATED RINGERS 1,000 ML IV SCH (08:50)
[2019-06-06] MEDS: ATAZANAVIR 300 MG PO SCH (08:50)
[2019-06-06] MEDS: NON-FORMULARY MEDICATION (Dolutegravir [Tivicay] 50 MG) PO SCH (08:54)
[2019-06-06] MEDS: RILPIVIRINE 25 MG PO SCH (08:54)
[2019-06-06] MEDS: NON-FORMULARY MEDICATION (Ritonavir [Norvir] 100 MG) PO SCH (08:55)
[2019-06-06] MEDS ORDERED: POLYETHYLENE GLYCOL POWDER 17 GM PACK PO SCH (15:30)
[2019-06-06] MEDS: LEVOFLOXACIN INJ 500 MG in PREMIX 1 EACH IV SCH (16:50)
[2019-06-06] MEDS: MORPHINE 4 MG/1 ML VIAL IV PRN ×2 (16:51→21:10)
[2019-06-07] MEDS: HYDROCORTISONE 100 MG VIAL IV SCH ×3 (01:02→17:09)
[2019-06-07 04:37] LABS: Basophils % 0.3 % (0.0-0.8); Hematocrit 30.3 VOL% (42.0-52.0); Hemoglobin 10.1 GM/DL (14.0-18.0); Immature Granulocytes % 4.6 %; Immature Granulocytes Absolute 0.57 #; Lymphocytes # 0.7 10*3/uL (1.4-4.0); Lymphocytes % 5.9 % (21.2-54.2); Mean Corpuscular HGB Conc 33.3 GM/DL (32-36); Monocytes % 4.6 % (1.7-12.7); Neutrophils % 84.6 % (38.7-73.9); Platelet Count 175 T/CUMM (130-400); Red Blood Count 3.33 MC/CUMM (3.8-5.5); Red Cell Distribution Width 15.9 % (9.3-17.3); White Blood Count 12.3 T/CUMM (4-12)
[2019-06-07 05:02] LABS: Calcium 8.3 MG/DL (8.5-10.1); Osmolality,Calculated 295.4 MOS/KG (273-304)
[2019-06-07 05:05] LABS: Albumin 2.4 G/DL (3.4-5.0); Bilirubin,Direct 0.11 MG/DL (0.0-0.20); Bilirubin,Indirect 0.7 MG/DL (0.0-1.0); Bilirubin,Total 0.8 MG/DL (0.2-1.0); Total Protein 6.2 G/DL (6.4-8.3)
[2019-06-07 05:43] LABS: Band Neutrophils 3 % (0-10); Lymphocytes 7 % (20-55); Nucleated Red Blood Cells 1 (0-5); Segmented Neutrophils 85 % (50-85); Total Cells Counted 100
[2019-06-07 05:44] LABS: Anisocytosis 1+; Platelet Estimate Normal
[2019-06-07] MEDS: DORNASE ALFA 2.5 MG/2.5 ML VIAL RESP TX SCH ×2 (07:57→20:23)
[2019-06-07] MEDS: ARFORMOTEROL 15 MCG/2 ML NEB RESP TX SCH ×2 (07:57→20:15)
[2019-06-07] MEDS: ALBUTEROL/IPRATROPIUM 3 ML NEB RESP TX SCH ×4 (07:57→20:15)
[2019-06-07] MEDS: CITALOPRAM 20 MG TABLET PO SCH (09:04)
[2019-06-07] MEDS: RANITIDINE 150 MG TABLET PO SCH ×2 (09:04→21:28)
[2019-06-07] MEDS: busPIRone 10 MG TABLET PO SCH ×2 (09:04→21:28)
[2019-06-07] MEDS: PANTOPRAZOLE 40 MG TABLET PO SCH (09:05)
[2019-06-07] MEDS: POLYETHYLENE GLYCOL POWDER 17 GM PACK PO SCH (09:05)
[2019-06-07] MEDS: DULoxetine 30 MG CAPSULE PO SCH ×2 (09:05→21:28)
[2019-06-07] MEDS: sitaGLIPtin 25 MG TABLET PO SCH (09:05)
[2019-06-07] MEDS: CETIRIZINE 10 MG TABLET PO SCH (09:05)
[2019-06-07] MEDS: DOCUSATE SODIUM 100 MG/10 ML UDCUP PEG SCH (09:06)
[2019-06-07] MEDS: MORPHINE 4 MG/1 ML VIAL IV PRN ×2 (09:07→14:41)
[2019-06-07] MEDS: NON-FORMULARY MEDICATION (Ritonavir [Norvir] 100 MG) PO SCH (09:16)
[2019-06-07] MEDS: RILPIVIRINE 25 MG PO SCH (09:16)
[2019-06-07] MEDS: ATAZANAVIR 300 MG PO SCH (09:17)
[2019-06-07] MEDS: NON-FORMULARY MEDICATION (Dolutegravir [Tivicay] 50 MG) PO SCH (09:17)
[2019-06-07] MEDS: LACTATED RINGERS 1,000 ML IV SCH (09:17)
[2019-06-07] MEDS: PREGABALIN 100 MG CAPSULE PO SCH ×2 (09:18→21:29)
[2019-06-07] MEDS: INSULIN REGULAR 100 UNIT/ML SUBCUT SCH ×4 (09:58→21:27)
[2019-06-07] MEDS ORDERED: DOCUSATE SODIUM 100 MG/10 ML UDCUP PEG SCH (15:19)
[2019-06-07] MEDS ORDERED: MORPHINE ER 15 MG TABLET PO PRN (16:22)
[2019-06-07] MEDS: MORPHINE ER 15 MG TABLET PO PRN (17:09)
[2019-06-07] MEDS: METHOCARBAMOL 500 MG TABLET PO PRN ×2 (17:10→21:28)
[2019-06-08] MEDS: HYDROCORTISONE 100 MG VIAL IV SCH ×2 (01:32→10:39)
[2019-06-08 05:20] LABS: Basophils % 0.2 % (0.0-0.8); Eosinophils % 0.1 % (0.00-10.9); Hemoglobin 9.5 GM/DL (14.0-18.0); Lymphocytes # 0.7 10*3/uL (1.4-4.0); Lymphocytes % 5.2 % (21.2-54.2); Mean Corpuscular HGB Conc 32.8 GM/DL (32-36); Mean Corpuscular Volume 91.8 FL (87-102); Mean Platelet Volume 12.3 FL (9.6-12.0); Monocytes % 5.3 % (1.7-12.7); Neutrophils % 86.2 % (38.7-73.9); Platelet Count 174 T/CUMM (130-400); Red Blood Count 3.16 MC/CUMM (3.8-5.5); White Blood Count 13.2 T/CUMM (4-12)
[2019-06-08 05:48] LABS: Calcium 8.3 MG/DL (8.5-10.1); Osmolality,Calculated 295.3 MOS/KG (273-304)
[2019-06-08 05:54] LABS: Prealbumin 46.9 MG/DL (20-40)
[2019-06-08 06:01] LABS: Albumin 2.5 G/DL (3.4-5.0); Bilirubin,Direct 0.12 MG/DL (0.0-0.20); Bilirubin,Indirect 0.3 MG/DL (0.0-1.0); Bilirubin,Total 0.4 MG/DL (0.2-1.0); Total Protein 6.2 G/DL (6.4-8.3)
[2019-06-08] MEDS: ARFORMOTEROL 15 MCG/2 ML NEB RESP TX SCH ×2 (07:20→19:37)
[2019-06-08] MEDS: DORNASE ALFA 2.5 MG/2.5 ML VIAL RESP TX SCH ×2 (07:20→19:37)
[2019-06-08] MEDS: ALBUTEROL/IPRATROPIUM 3 ML NEB RESP TX SCH ×4 (07:20→19:37)
[2019-06-08] MEDS: LEVOFLOXACIN 500 MG TABLET PO SCH (10:40)
[2019-06-08] MEDS: busPIRone 10 MG TABLET PO SCH ×2 (10:40→21:37)
[2019-06-08] MEDS: ATAZANAVIR 300 MG PO SCH (10:40)
[2019-06-08] MEDS: CITALOPRAM 20 MG TABLET PO SCH (10:40)
[2019-06-08] MEDS: RANITIDINE 150 MG TABLET PO SCH ×2 (10:40→21:38)
[2019-06-08] MEDS: PREGABALIN 100 MG CAPSULE PO SCH ×2 (10:40→21:37)
[2019-06-08] MEDS: CETIRIZINE 10 MG TABLET PO SCH (10:40)
[2019-06-08] MEDS: guaiFENesin/DM ER 600-30 MG TABLET PO PRN (10:40)
[2019-06-08] MEDS: METHOCARBAMOL 500 MG TABLET PO PRN ×3 (10:40→21:37)
[2019-06-08] MEDS: DOCUSATE SODIUM 100 MG/10 ML UDCUP PEG SCH (10:41)
[2019-06-08] MEDS: HYDROcod/ACETAMIN 7.5-325 MG/15 ML UDCUP PEG PRN (10:41)
[2019-06-08] MEDS: INSULIN REGULAR 100 UNIT/ML SUBCUT SCH ×4 (10:55→22:22)
[2019-06-08] MEDS: DULoxetine 30 MG CAPSULE PO SCH ×2 (10:57→21:36)
[2019-06-08] MEDS: NON-FORMULARY MEDICATION (Dolutegravir [Tivicay] 50 MG) PO SCH (10:58)
[2019-06-08] MEDS: PANTOPRAZOLE 40 MG TABLET PO SCH (10:58)
[2019-06-08] MEDS: NON-FORMULARY MEDICATION (Ritonavir [Norvir] 100 MG) PO SCH (10:58)
[2019-06-08] MEDS: RILPIVIRINE 25 MG PO SCH (10:58)
[2019-06-08] MEDS: POLYETHYLENE GLYCOL POWDER 17 GM PACK PO SCH (10:58)
[2019-06-08] MEDS: sitaGLIPtin 25 MG TABLET PO SCH (10:58)
[2019-06-08] MEDS: LACTATED RINGERS 1,000 ML IV SCH (14:27)
[2019-06-08] MEDS: MORPHINE IR 15 MG TABLET PEG PRN ×2 (15:46→21:38)
[2019-06-08] MEDS ORDERED: MORPHINE ER 30 MG TABLET PO SCH (18:00)
[2019-06-08] MEDS: HYDROCORTISONE 10 MG TABLET PO SCH (21:37)
[2019-06-09] MEDS: MORPHINE IR 15 MG TABLET PEG PRN ×4 (05:11→23:43)
[2019-06-09 05:55] LABS: Basophils % 0.1 % (0.0-0.8); Eosinophils % 0.3 % (0.00-10.9); Hematocrit 31.9 VOL% (42.0-52.0); Hemoglobin 10.3 GM/DL (14.0-18.0); Immature Granulocytes % 2.1 %; Immature Granulocytes Absolute 0.29 #; Lymphocytes # 1.3 10*3/uL (1.4-4.0); Lymphocytes % 9.5 % (21.2-54.2); Mean Corpuscular HGB Conc 32.3 GM/DL (32-36); Mean Corpuscular Volume 92.7 FL (87-102); Mean Platelet Volume 12.5 FL (9.6-12.0); Monocytes % 5.9 % (1.7-12.7); Neutrophils % 82.1 % (38.7-73.9); Platelet Count 165 T/CUMM (130-400); Red Blood Count 3.44 MC/CUMM (3.8-5.5); Red Cell Distribution Width 16.7 % (9.3-17.3); White Blood Count 13.7 T/CUMM (4-12)
[2019-06-09 06:22] LABS: Albumin 2.5 G/DL (3.4-5.0); Bilirubin,Total 0.5 MG/DL (0.2-1.0); Calcium 8.6 MG/DL (8.5-10.1); Osmolality,Calculated 287.5 MOS/KG (273-304); Total Protein 6.2 G/DL (6.4-8.3)
[2019-06-09 06:26] LABS: Band Neutrophils 2 % (0-10); Lymphocytes 14 % (20-55); Segmented Neutrophils 79 % (50-85); Total Cells Counted 100
[2019-06-09 06:27] LABS: Anisocytosis 1+; Microcytosis 2+; Platelet Estimate Normal; Polychromasia Slight
[2019-06-09 06:28] LABS: Stomatocytes Slight; Target Cells Slight
[2019-06-09] MEDS: ARFORMOTEROL 15 MCG/2 ML NEB RESP TX SCH ×2 (07:59→19:56)
[2019-06-09] MEDS: ALBUTEROL/IPRATROPIUM 3 ML NEB RESP TX SCH ×4 (07:59→19:56)
[2019-06-09] MEDS: DORNASE ALFA 2.5 MG/2.5 ML VIAL RESP TX SCH ×2 (08:08→20:16)
[2019-06-09] MEDS: LACTATED RINGERS 1,000 ML IV SCH (08:27)
[2019-06-09] MEDS: INSULIN REGULAR 100 UNIT/ML SUBCUT SCH ×4 (08:27→20:47)
[2019-06-09] MEDS: CETIRIZINE 10 MG TABLET PO SCH (09:21)
[2019-06-09] MEDS: RANITIDINE 150 MG TABLET PO SCH ×2 (09:21→20:47)
[2019-06-09] MEDS: HYDROCORTISONE 10 MG TABLET PO SCH ×2 (09:21→20:47)
[2019-06-09] MEDS: CITALOPRAM 20 MG TABLET PO SCH (09:21)
[2019-06-09] MEDS: DOCUSATE SODIUM 100 MG/10 ML UDCUP PEG SCH (09:22)
[2019-06-09] MEDS: PREGABALIN 100 MG CAPSULE PO SCH ×2 (09:22→20:47)
[2019-06-09] MEDS: RILPIVIRINE 25 MG PO SCH (09:22)
[2019-06-09] MEDS: NON-FORMULARY MEDICATION (Ritonavir [Norvir] 100 MG) PO SCH (09:22)
[2019-06-09] MEDS: sitaGLIPtin 25 MG TABLET PO SCH (09:22)
[2019-06-09] MEDS: PANTOPRAZOLE 40 MG TABLET PO SCH (09:22)
[2019-06-09] MEDS: POLYETHYLENE GLYCOL POWDER 17 GM PACK PO SCH (09:22)
[2019-06-09] MEDS: DULoxetine 30 MG CAPSULE PO SCH ×2 (09:22→20:47)
[2019-06-09] MEDS: busPIRone 10 MG TABLET PO SCH ×2 (09:22→20:47)
[2019-06-09] MEDS: NON-FORMULARY MEDICATION (Dolutegravir [Tivicay] 50 MG) PO SCH (09:23)
[2019-06-09] MEDS: ATAZANAVIR 300 MG PO SCH (09:23)
[2019-06-09] MEDS: METHOCARBAMOL 500 MG TABLET PO PRN (20:48)
[2019-06-10] MEDS: ALBUTEROL/IPRATROPIUM 3 ML NEB RESP TX SCH ×4 (08:07→19:07)
[2019-06-10] MEDS: ARFORMOTEROL 15 MCG/2 ML NEB RESP TX SCH ×2 (08:07→19:07)
[2019-06-10] MEDS: DORNASE ALFA 2.5 MG/2.5 ML VIAL RESP TX SCH ×2 (08:08→19:08)
[2019-06-10] MEDS: DULoxetine 30 MG CAPSULE PO SCH ×2 (08:10→20:14)
[2019-06-10] MEDS: CITALOPRAM 20 MG TABLET PO SCH (08:10)
[2019-06-10] MEDS: DOCUSATE SODIUM 100 MG/10 ML UDCUP PEG SCH (08:10)
[2019-06-10] MEDS: RANITIDINE 150 MG TABLET PO SCH ×2 (08:10→20:15)
[2019-06-10] MEDS: busPIRone 10 MG TABLET PO SCH ×2 (08:10→20:15)
[2019-06-10] MEDS: guaiFENesin/DM ER 600-30 MG TABLET PO PRN (08:10)
[2019-06-10] MEDS: HYDROCORTISONE 10 MG TABLET PO SCH ×2 (08:10→20:15)
[2019-06-10] MEDS: PREGABALIN 100 MG CAPSULE PO SCH ×2 (08:10→20:15)
[2019-06-10] MEDS: sitaGLIPtin 25 MG TABLET PO SCH (08:10)
[2019-06-10] MEDS: NON-FORMULARY MEDICATION (Ritonavir [Norvir] 100 MG) PO SCH (08:11)
[2019-06-10] MEDS: CETIRIZINE 10 MG TABLET PO SCH (08:11)
[2019-06-10] MEDS: PANTOPRAZOLE 40 MG TABLET PO SCH (08:11)
[2019-06-10] MEDS: METHOCARBAMOL 500 MG TABLET PO PRN ×2 (08:11→21:11)
[2019-06-10] MEDS: ATAZANAVIR 300 MG PO SCH (08:11)
[2019-06-10] MEDS: RILPIVIRINE 25 MG PO SCH (08:11)
[2019-06-10] MEDS: LEVOFLOXACIN 500 MG TABLET PO SCH (08:11)
[2019-06-10] MEDS: INSULIN REGULAR 100 UNIT/ML SUBCUT SCH ×4 (08:11→23:49)
[2019-06-10] MEDS: NON-FORMULARY MEDICATION (Dolutegravir [Tivicay] 50 MG) PO SCH (08:12)
[2019-06-10] MEDS: MORPHINE IR 15 MG TABLET PEG PRN ×4 (08:12→21:11)
[2019-06-10] MEDS: POLYETHYLENE GLYCOL POWDER 17 GM PACK PO SCH (08:13)
[2019-06-10] MEDS: LACTATED RINGERS 1,000 ML IV SCH (09:52)
[2019-06-10] MEDS: MORPHINE 4 MG/1 ML VIAL IV PRN (20:15)
[2019-06-11] MEDS: MORPHINE IR 15 MG TABLET PEG PRN ×4 (00:11→21:58)
[2019-06-11] MEDS: ARFORMOTEROL 15 MCG/2 ML NEB RESP TX SCH ×2 (08:33→20:12)
[2019-06-11] MEDS: ALBUTEROL/IPRATROPIUM 3 ML NEB RESP TX SCH ×4 (08:33→20:12)
[2019-06-11] MEDS: DORNASE ALFA 2.5 MG/2.5 ML VIAL RESP TX SCH ×2 (08:33→20:12)
[2019-06-11] MEDS: INSULIN REGULAR 100 UNIT/ML SUBCUT SCH ×4 (09:00→20:35)
[2019-06-11] MEDS: LACTATED RINGERS 1,000 ML IV SCH (09:00)
[2019-06-11] MEDS: DULoxetine 30 MG CAPSULE PO SCH ×2 (09:01→21:49)
[2019-06-11] MEDS: POLYETHYLENE GLYCOL POWDER 17 GM PACK PO SCH (09:01)
[2019-06-11] MEDS: busPIRone 10 MG TABLET PO SCH ×2 (09:01→21:49)
[2019-06-11] MEDS: sitaGLIPtin 25 MG TABLET PO SCH (09:01)
[2019-06-11] MEDS: RANITIDINE 150 MG TABLET PO SCH ×2 (09:02→21:49)
[2019-06-11] MEDS: CITALOPRAM 20 MG TABLET PO SCH (09:02)
[2019-06-11] MEDS: PREGABALIN 100 MG CAPSULE PO SCH ×2 (09:02→21:50)
[2019-06-11] MEDS: CETIRIZINE 10 MG TABLET PO SCH (09:02)
[2019-06-11] MEDS: HYDROCORTISONE 10 MG TABLET PO SCH ×2 (09:02→21:49)
[2019-06-11] MEDS: DOCUSATE SODIUM 100 MG/10 ML UDCUP PEG SCH (09:02)
[2019-06-11] MEDS: PANTOPRAZOLE 40 MG TABLET PO SCH (09:02)
[2019-06-11] MEDS: NON-FORMULARY MEDICATION (Dolutegravir [Tivicay] 50 MG) PO SCH (09:10)
[2019-06-11] MEDS: ATAZANAVIR 300 MG PO SCH (09:10)
[2019-06-11] MEDS: NON-FORMULARY MEDICATION (Ritonavir [Norvir] 100 MG) PO SCH (09:11)
[2019-06-11] MEDS: RILPIVIRINE 25 MG PO SCH (09:11)
[2019-06-11] MEDS: MORPHINE 4 MG/1 ML VIAL IV PRN (19:53)
[2019-06-11] MEDS: METHOCARBAMOL 500 MG TABLET PO PRN (21:49)
[2019-06-12] MEDS: MORPHINE 4 MG/1 ML VIAL IV PRN ×2 (02:24→20:37)
[2019-06-12] MEDS: MORPHINE IR 15 MG TABLET PEG PRN ×3 (05:05→13:21)
[2019-06-12] MEDS: INSULIN REGULAR 100 UNIT/ML SUBCUT SCH ×4 (07:30→20:47)
[2019-06-12] MEDS: ARFORMOTEROL 15 MCG/2 ML NEB RESP TX SCH ×2 (07:56→19:51)
[2019-06-12] MEDS: ALBUTEROL/IPRATROPIUM 3 ML NEB RESP TX SCH ×4 (07:56→19:51)
[2019-06-12] MEDS: DORNASE ALFA 2.5 MG/2.5 ML VIAL RESP TX SCH ×2 (07:56→19:51)
[2019-06-12] MEDS: POLYETHYLENE GLYCOL POWDER 17 GM PACK PO SCH (08:56)
[2019-06-12] MEDS: DOCUSATE SODIUM 100 MG/10 ML UDCUP PEG SCH (08:56)
[2019-06-12] MEDS: RANITIDINE 150 MG TABLET PO SCH ×2 (08:57→20:36)
[2019-06-12] MEDS: HYDROCORTISONE 10 MG TABLET PO SCH ×2 (08:57→20:35)
[2019-06-12] MEDS: CITALOPRAM 20 MG TABLET PO SCH (08:57)
[2019-06-12] MEDS: CETIRIZINE 10 MG TABLET PO SCH (08:57)
[2019-06-12] MEDS: PANTOPRAZOLE 40 MG TABLET PO SCH (08:57)
[2019-06-12] MEDS: PREGABALIN 100 MG CAPSULE PO SCH ×2 (08:57→20:36)
[2019-06-12] MEDS: sitaGLIPtin 25 MG TABLET PO SCH (08:57)
[2019-06-12] MEDS: DULoxetine 30 MG CAPSULE PO SCH ×2 (08:57→20:35)
[2019-06-12] MEDS: busPIRone 10 MG TABLET PO SCH ×2 (08:57→20:35)
[2019-06-12] MEDS: LACTATED RINGERS 1,000 ML IV SCH (10:02)
[2019-06-12] MEDS: ATAZANAVIR 300 MG PO SCH (10:03)
[2019-06-12] MEDS: NON-FORMULARY MEDICATION (Ritonavir [Norvir] 100 MG) PO SCH (10:03)
[2019-06-12] MEDS: NON-FORMULARY MEDICATION (Dolutegravir [Tivicay] 50 MG) PO SCH (10:03)
[2019-06-12] MEDS: RILPIVIRINE 25 MG PO SCH (10:03)
[2019-06-12] MEDS: LEVOFLOXACIN 500 MG TABLET PO SCH (10:15)
[2019-06-13] MEDS: MORPHINE IR 15 MG TABLET PEG PRN ×4 (00:38→21:08)
[2019-06-13] MEDS: ALBUTEROL/IPRATROPIUM 3 ML NEB RESP TX SCH ×4 (07:46→19:13)
[2019-06-13] MEDS: ARFORMOTEROL 15 MCG/2 ML NEB RESP TX SCH ×2 (07:54→19:13)
[2019-06-13] MEDS: DORNASE ALFA 2.5 MG/2.5 ML VIAL RESP TX SCH ×2 (07:59→19:13)
[2019-06-13] MEDS: INSULIN REGULAR 100 UNIT/ML SUBCUT SCH ×4 (08:02→21:09)
[2019-06-13] MEDS: ATAZANAVIR 300 MG PO SCH (09:50)
[2019-06-13] MEDS: LACTATED RINGERS 1,000 ML IV SCH (09:50)
[2019-06-13] MEDS: POLYETHYLENE GLYCOL POWDER 17 GM PACK PO SCH (09:52)
[2019-06-13] MEDS: PREGABALIN 100 MG CAPSULE PO SCH ×2 (09:52→21:09)
[2019-06-13] MEDS: DULoxetine 30 MG CAPSULE PO SCH ×2 (09:53→21:08)
[2019-06-13] MEDS: HYDROCORTISONE 10 MG TABLET PO SCH ×2 (09:53→21:08)
[2019-06-13] MEDS: sitaGLIPtin 25 MG TABLET PO SCH (09:53)
[2019-06-13] MEDS: CETIRIZINE 10 MG TABLET PO SCH (09:53)
[2019-06-13] MEDS: CITALOPRAM 20 MG TABLET PO SCH (09:53)
[2019-06-13] MEDS: RANITIDINE 150 MG TABLET PO SCH ×2 (09:53→21:08)
[2019-06-13] MEDS: METHOCARBAMOL 500 MG TABLET PO PRN (09:53)
[2019-06-13] MEDS: LEVOFLOXACIN 500 MG TABLET PO SCH (09:53)
[2019-06-13] MEDS: guaiFENesin/DM ER 600-30 MG TABLET PO PRN ×2 (09:53→21:09)
[2019-06-13] MEDS: busPIRone 10 MG TABLET PO SCH ×2 (09:53→21:09)
[2019-06-13] MEDS: PANTOPRAZOLE 40 MG TABLET PO SCH (09:53)
[2019-06-13] MEDS: NON-FORMULARY MEDICATION (Ritonavir [Norvir] 100 MG) PO SCH (09:54)
[2019-06-13] MEDS: RILPIVIRINE 25 MG PO SCH (09:54)
[2019-06-13] MEDS: DOCUSATE SODIUM 100 MG/10 ML UDCUP PEG SCH (09:56)
[2019-06-13] MEDS: NON-FORMULARY MEDICATION (Dolutegravir [Tivicay] 50 MG) PO SCH (09:56)
[2019-06-13] MEDS: MORPHINE 4 MG/1 ML VIAL IV PRN ×2 (16:01→22:53)
[2019-06-14] MEDS: MORPHINE 4 MG/1 ML VIAL IV PRN (03:25)
[2019-06-14] MEDS: MORPHINE IR 15 MG TABLET PEG PRN ×3 (06:19→17:32)
[2019-06-14] MEDS: ALBUTEROL/IPRATROPIUM 3 ML NEB RESP TX SCH ×4 (08:39→19:11)
[2019-06-14] MEDS: ARFORMOTEROL 15 MCG/2 ML NEB RESP TX SCH ×2 (08:39→19:13)
[2019-06-14] MEDS: DORNASE ALFA 2.5 MG/2.5 ML VIAL RESP TX SCH ×2 (08:49→19:18)
[2019-06-14] MEDS: DOCUSATE SODIUM 100 MG/10 ML UDCUP PEG SCH (09:23)
[2019-06-14] MEDS: RANITIDINE 150 MG TABLET PO SCH ×2 (09:23→21:34)
[2019-06-14] MEDS: PANTOPRAZOLE 40 MG TABLET PO SCH (09:23)
[2019-06-14] MEDS: DULoxetine 30 MG CAPSULE PO SCH ×2 (09:23→21:34)
[2019-06-14] MEDS: CETIRIZINE 10 MG TABLET PO SCH (09:23)
[2019-06-14] MEDS: LEVOFLOXACIN 500 MG TABLET PO SCH (09:23)
[2019-06-14] MEDS: PREGABALIN 100 MG CAPSULE PO SCH ×2 (09:23→21:34)
[2019-06-14] MEDS: INSULIN REGULAR 100 UNIT/ML SUBCUT SCH ×3 (09:24→17:31)
[2019-06-14] MEDS: METHOCARBAMOL 500 MG TABLET PO PRN (09:24)
[2019-06-14] MEDS: CITALOPRAM 20 MG TABLET PO SCH (09:24)
[2019-06-14] MEDS: HYDROCORTISONE 10 MG TABLET PO SCH ×2 (09:24→21:33)
[2019-06-14] MEDS: ATAZANAVIR 300 MG PO SCH (09:25)
[2019-06-14] MEDS: busPIRone 10 MG TABLET PO SCH ×2 (09:25→21:33)
[2019-06-14] MEDS: NON-FORMULARY MEDICATION (Dolutegravir [Tivicay] 50 MG) PO SCH (09:25)
[2019-06-14] MEDS: POLYETHYLENE GLYCOL POWDER 17 GM PACK PO SCH (09:25)
[2019-06-14] MEDS: sitaGLIPtin 25 MG TABLET PO SCH (09:25)
[2019-06-14] MEDS: RILPIVIRINE 25 MG PO SCH (09:26)
[2019-06-14] MEDS: LACTATED RINGERS 1,000 ML IV SCH (09:27)
[2019-06-14] MEDS: NON-FORMULARY MEDICATION (Ritonavir [Norvir] 100 MG) PO SCH (09:27)
[2019-06-14] MEDS ORDERED: LOPERAMIDE 2 MG CAPSULE PO PRN (13:29)
[2019-06-14] MEDS: HYDROmorphone 2 MG/1 ML VIAL IV PRN ×2 (15:05→21:30)
[2019-06-15] MEDS: INSULIN REGULAR 100 UNIT/ML SUBCUT SCH ×5 (00:23→22:15)
[2019-06-15] MEDS: HYDROmorphone 2 MG/1 ML VIAL IV PRN ×4 (02:45→19:52)
[2019-06-15 05:56] LABS: Basophils % 0.4 % (0.0-0.8); Eosinophils # 0.1 10*3/uL (0.0-0.87); Eosinophils % 0.5 % (0.00-10.9); Hematocrit 31.9 VOL% (42.0-52.0); Hemoglobin 10.1 GM/DL (14.0-18.0); Immature Granulocytes % 2.9 %; Immature Granulocytes Absolute 0.26 #; Lymphocytes # 1.5 10*3/uL (1.4-4.0); Lymphocytes % 16.5 % (21.2-54.2); Mean Corpuscular HGB Conc 31.7 GM/DL (32-36); Mean Corpuscular Volume 94.4 FL (87-102); Mean Platelet Volume 12.3 FL (9.6-12.0); Monocytes % 10.6 % (1.7-12.7); Neutrophils % 69.1 % (38.7-73.9); Platelet Count 149 T/CUMM (130-400); Red Blood Count 3.38 MC/CUMM (3.8-5.5); Red Cell Distribution Width 16.8 % (9.3-17.3); White Blood Count 9.1 T/CUMM (4-12)
[2019-06-15 06:22] LABS: Calcium 9.2 MG/DL (8.5-10.1); Osmolality,Calculated 282.5 MOS/KG (273-304); Prealbumin 32.8 MG/DL (20-40)
[2019-06-15] MEDS: ALBUTEROL/IPRATROPIUM 3 ML NEB RESP TX SCH ×4 (07:05→19:36)
[2019-06-15] MEDS: ARFORMOTEROL 15 MCG/2 ML NEB RESP TX SCH ×2 (07:05→19:36)
[2019-06-15] MEDS: DORNASE ALFA 2.5 MG/2.5 ML VIAL RESP TX SCH ×2 (07:10→19:46)
[2019-06-15] MEDS: DOCUSATE SODIUM 100 MG/10 ML UDCUP PEG SCH (09:38)
[2019-06-15] MEDS: CITALOPRAM 20 MG TABLET PO SCH (09:38)
[2019-06-15] MEDS: RANITIDINE 150 MG TABLET PO SCH ×2 (09:39→21:48)
[2019-06-15] MEDS: PANTOPRAZOLE 40 MG TABLET PO SCH (09:39)
[2019-06-15] MEDS: PREGABALIN 100 MG CAPSULE PO SCH ×2 (09:39→21:48)
[2019-06-15] MEDS: CETIRIZINE 10 MG TABLET PO SCH (09:39)
[2019-06-15] MEDS: LEVOFLOXACIN 500 MG TABLET PO SCH (09:39)
[2019-06-15] MEDS: busPIRone 10 MG TABLET PO SCH ×2 (09:39→21:48)
[2019-06-15] MEDS: HYDROCORTISONE 10 MG TABLET PO SCH ×2 (09:39→21:48)
[2019-06-15] MEDS: DULoxetine 30 MG CAPSULE PO SCH ×2 (09:40→21:48)
[2019-06-15] MEDS: MORPHINE IR 15 MG TABLET PEG PRN ×2 (09:40→16:51)
[2019-06-15] MEDS: sitaGLIPtin 25 MG TABLET PO SCH (09:40)
[2019-06-15] MEDS: NON-FORMULARY MEDICATION (Dolutegravir [Tivicay] 50 MG) PO SCH (09:43)
[2019-06-15] MEDS: ATAZANAVIR 300 MG PO SCH (09:43)
[2019-06-15] MEDS: NON-FORMULARY MEDICATION (Ritonavir [Norvir] 100 MG) PO SCH (09:43)
[2019-06-15] MEDS: RILPIVIRINE 25 MG PO SCH (09:43)
[2019-06-15] MEDS: POLYETHYLENE GLYCOL POWDER 17 GM PACK PO SCH (09:43)
[2019-06-15] MEDS: LACTATED RINGERS 1,000 ML IV SCH (09:56)
[2019-06-15] MEDS: METHOCARBAMOL 500 MG TABLET PO PRN (16:51)
[2019-06-15] MEDS: ENOXAPARIN 30 MG/0.3 ML SYRINGE SUBCUT SCH (16:52)
[2019-06-16] MEDS: HYDROmorphone 2 MG/1 ML VIAL IV PRN ×4 (02:11→22:57)
[2019-06-16 06:04] LABS: Basophils % 0.2 % (0.0-0.8); Eosinophils # 0.1 10*3/uL (0.0-0.87); Eosinophils % 0.6 % (0.00-10.9); Hematocrit 30.5 VOL% (42.0-52.0); Hemoglobin 9.5 GM/DL (14.0-18.0); Immature Granulocytes % 3.1 %; Immature Granulocytes Absolute 0.26 #; Lymphocytes # 1.2 10*3/uL (1.4-4.0); Lymphocytes % 14.4 % (21.2-54.2); Mean Corpuscular HGB Conc 31.1 GM/DL (32-36); Mean Corpuscular Volume 93.8 FL (87-102); Monocytes % 10.5 % (1.7-12.7); Neutrophils % 71.2 % (38.7-73.9); Platelet Count 138 T/CUMM (130-400); Red Blood Count 3.25 MC/CUMM (3.8-5.5); Red Cell Distribution Width 16.6 % (9.3-17.3); White Blood Count 8.4 T/CUMM (4-12)
[2019-06-16 06:24] LABS: Calcium 8.8 MG/DL (8.5-10.1); Osmolality,Calculated 281.8 MOS/KG (273-304)
[2019-06-16] MEDS: ARFORMOTEROL 15 MCG/2 ML NEB RESP TX SCH ×2 (07:50→19:59)
[2019-06-16] MEDS: DORNASE ALFA 2.5 MG/2.5 ML VIAL RESP TX SCH ×2 (07:50→19:59)
[2019-06-16] MEDS: ALBUTEROL/IPRATROPIUM 3 ML NEB RESP TX SCH ×4 (07:50→19:59)
[2019-06-16] MEDS: INSULIN REGULAR 100 UNIT/ML SUBCUT SCH ×4 (08:33→22:31)
[2019-06-16] MEDS: RANITIDINE 150 MG TABLET PO SCH ×2 (09:26→20:21)
[2019-06-16] MEDS: DULoxetine 30 MG CAPSULE PO SCH ×2 (09:27→20:21)
[2019-06-16] MEDS: sitaGLIPtin 25 MG TABLET PO SCH (09:27)
[2019-06-16] MEDS: CETIRIZINE 10 MG TABLET PO SCH (09:27)
[2019-06-16] MEDS: CITALOPRAM 20 MG TABLET PO SCH (09:27)
[2019-06-16] MEDS: LEVOFLOXACIN 500 MG TABLET PO SCH (09:28)
[2019-06-16] MEDS: PANTOPRAZOLE 40 MG TABLET PO SCH (09:28)
[2019-06-16] MEDS: PREGABALIN 100 MG CAPSULE PO SCH ×2 (09:28→20:21)
[2019-06-16] MEDS: METHOCARBAMOL 500 MG TABLET PO PRN (09:28)
[2019-06-16] MEDS: busPIRone 10 MG TABLET PO SCH ×2 (09:28→20:21)
[2019-06-16] MEDS: HYDROCORTISONE 10 MG TABLET PO SCH ×2 (09:28→20:21)
[2019-06-16] MEDS: ATAZANAVIR 300 MG PO SCH (09:29)
[2019-06-16] MEDS: RILPIVIRINE 25 MG PO SCH (09:30)
[2019-06-16] MEDS: NON-FORMULARY MEDICATION (Dolutegravir [Tivicay] 50 MG) PO SCH (09:30)
[2019-06-16] MEDS: NON-FORMULARY MEDICATION (Ritonavir [Norvir] 100 MG) PO SCH (09:30)
[2019-06-16] MEDS: ENOXAPARIN 30 MG/0.3 ML SYRINGE SUBCUT SCH (16:56)
[2019-06-16] MEDS: MORPHINE IR 15 MG TABLET PEG PRN (20:20)
[2019-06-16] MEDS: ONDANSETRON 4 MG/2 ML VIAL IV PRN (22:57)
[2019-06-17] MEDS: MORPHINE IR 15 MG TABLET PEG PRN ×4 (03:10→12:42)
[2019-06-17] MEDS: HYDROmorphone 2 MG/1 ML VIAL IV PRN (05:01)
[2019-06-17] MEDS: ONDANSETRON 4 MG/2 ML VIAL IV PRN (05:05)
[2019-06-17] MEDS ORDERED: LINACLOTIDE 145 MCG CAPSULE PO SCH (06:30)
[2019-06-17] MEDS: ARFORMOTEROL 15 MCG/2 ML NEB RESP TX SCH (07:35)
[2019-06-17] MEDS: ALBUTEROL/IPRATROPIUM 3 ML NEB RESP TX SCH ×3 (07:35→14:19)
[2019-06-17] MEDS: DORNASE ALFA 2.5 MG/2.5 ML VIAL RESP TX SCH (08:48)
[2019-06-17] MEDS: INSULIN REGULAR 100 UNIT/ML SUBCUT SCH ×3 (09:32→17:35)
[2019-06-17] MEDS: HYDROCORTISONE 10 MG TABLET PO SCH (09:38)
[2019-06-17] MEDS: PREGABALIN 100 MG CAPSULE PO SCH (09:38)
[2019-06-17] MEDS: CITALOPRAM 20 MG TABLET PO SCH (09:39)
[2019-06-17] MEDS: sitaGLIPtin 25 MG TABLET PO SCH (09:39)
[2019-06-17] MEDS: busPIRone 10 MG TABLET PO SCH (09:39)
[2019-06-17] MEDS: PANTOPRAZOLE 40 MG TABLET PO SCH (09:39)
[2019-06-17] MEDS: DULoxetine 30 MG CAPSULE PO SCH (09:39)
[2019-06-17] MEDS: ATAZANAVIR 300 MG PO SCH (09:39)
[2019-06-17] MEDS: NON-FORMULARY MEDICATION (Dolutegravir [Tivicay] 50 MG) PO SCH (09:40)
[2019-06-17] MEDS: NON-FORMULARY MEDICATION (Ritonavir [Norvir] 100 MG) PO SCH (09:41)
[2019-06-17] MEDS: RILPIVIRINE 25 MG PO SCH (09:41)
[2019-06-17] MEDS: CETIRIZINE 10 MG TABLET PO SCH (09:43)
[2019-06-17] MEDS: RANITIDINE 150 MG TABLET PO SCH (09:43)
[2019-06-17 16:29] VITALS: BP 124/68
[2019-06-17] MEDS: ENOXAPARIN 30 MG/0.3 ML SYRINGE SUBCUT SCH (17:38)
== END 2019-06-17 17:35 | disposition home health service (06) | DRG 557 ==
LOC: EDUNIT# → EDBD → N.ED 12:08 → SUATTDRO 16:08 → N.EDINP 16:08 → N.4E 18:54 → N.CC 06-02 17:25 → N.5E 06-03 16:33
PROVIDERS: ADMIT Family Medicine; ATTEND Internal Medicine

== ENCOUNTER 2019-06-28 19:05 | Inpatient (IN) ==
[2019-06-28] MEDS ORDERED: SODIUM CHLORIDE 0.9% 1,000 ML IV STA ×2 (20:32→21:50)
[2019-06-28 20:36] LABS: Basophils % 0.2 % (0.0-0.8); Eosinophils % 0.2 % (0.00-10.9); Hematocrit 38.6 VOL% (42.0-52.0); Hemoglobin 12.2 GM/DL (14.0-18.0); Immature Granulocytes % 1.6 %; Lymphocytes # 1.1 10*3/uL (1.4-4.0); Mean Corpuscular HGB Conc 31.6 GM/DL (32-36); Mean Corpuscular Volume 93.2 FL (87-102); Mean Platelet Volume 12.1 FL (9.6-12.0); Monocytes % 5.6 % (1.7-12.7); Neutrophils % 83.4 % (38.7-73.9); Platelet Count 267 T/CUMM (130-400); Red Blood Count 4.14 MC/CUMM (3.8-5.5); Red Cell Distribution Width 15.5 % (9.3-17.3); White Blood Count 12.4 T/CUMM (4-12)
[2019-06-28 20:42] LABS: Apearance,Urine CLOUDY (Clear); Bilirubin,Urine Negative (Negative); Blood, Urine Large mg/dL (Negative); Glucose,Urine (UA) 50 mg/dL (Negative); Ketones,Urine Negative (Negative); Nitrite,Urine Negative (Negative); Protein,Urine >=500 MG/DL; RBC,Urine 5462 /HPF (0-4); Urine Color Amber (Yellow); Urine Specific Gravity 1.005 (1.001-1.035); Urine Urobilinogen 0.2 EU/DL (0.2-1.0)
[2019-06-28] MEDS ORDERED: MORPHINE 4 MG/1 ML VIAL IV STA (20:46)
[2019-06-28] MEDS ORDERED: ONDANSETRON 4 MG/2 ML VIAL IV STA (20:46)
[2019-06-28 20:47] LABS: Albumin 3.1 G/DL (3.4-5.0); Bilirubin,Total 2.1 MG/DL (0.2-1.0); Calcium 9.9 MG/DL (8.5-10.1); Total Protein 8.3 G/DL (6.4-8.3)
[2019-06-28 20:55] LABS: INR 0.9; PT Patient Result 10.1 SECS (9.6-12.2); Partial Thromboplastin Time 26.4 SECS (20.8-36.0)
[2019-06-28] MEDS ORDERED: PIPERACILLIN/TAZOBACTAM 3,375 MG in SODIUM CHLORIDE 0.9% 100 ML IV STA (21:50)
[2019-06-28] MEDS ORDERED: ONDANSETRON 4 MG/2 ML VIAL IV PRN (23:08)
[2019-06-28] MEDS ORDERED: GLUCAGON 1 MG VIAL IM PRN (23:15)
[2019-06-28] MEDS ORDERED: DEXTROSE 10% 250 ML BAG IV PRN (23:15)
[2019-06-29] MEDS: SODIUM CHLORIDE 0.9% 1,000 ML IV SCH ×2 (02:10→16:04)
[2019-06-29] MEDS: MORPHINE 4 MG/1 ML VIAL IV PRN ×4 (02:19→21:38)
[2019-06-29] MEDS: PIPERACILLIN/TAZOBACTAM 3,375 MG in SODIUM CHLORIDE 0.9% 100 ML IV SCH ×2 (05:34→18:03)
[2019-06-29 07:07] LABS: Basophils % 0.4 % (0.0-0.8); Eosinophils # 0.1 10*3/uL (0.0-0.87); Eosinophils % 0.7 % (0.00-10.9); Hematocrit 32.8 VOL% (42.0-52.0); Hemoglobin 10.5 GM/DL (14.0-18.0); Immature Granulocytes % 1.2 %; Immature Granulocytes Absolute 0.12 #; Lymphocytes % 19.7 % (21.2-54.2); Mean Corpuscular Volume 92.1 FL (87-102); Mean Platelet Volume 11.4 FL (9.6-12.0); Monocytes % 8.7 % (1.7-12.7); Neutrophils % 69.3 % (38.7-73.9); Platelet Count 249 T/CUMM (130-400); Red Blood Count 3.56 MC/CUMM (3.8-5.5); Red Cell Distribution Width 15.3 % (9.3-17.3); White Blood Count 10.2 T/CUMM (4-12)
[2019-06-29 07:30] LABS: Albumin 2.3 G/DL (3.4-5.0); Bilirubin,Total 1.5 MG/DL (0.2-1.0); Calcium 8.6 MG/DL (8.5-10.1); Total Protein 6.8 G/DL (6.4-8.3)
[2019-06-29] MEDS ORDERED: FLUTICASONE 50 MCG NASAL SPRAY 16 GM BOTTLE BOTH NARES PRN (08:53)
[2019-06-29] MEDS ORDERED: LINACLOTIDE 145 MCG CAPSULE PO PRN (08:53)
[2019-06-29] MEDS ORDERED: METHOCARBAMOL 500 MG TABLET PO PRN (08:53)
[2019-06-29] MEDS ORDERED: NICOTINE 21 MG/24 HR PATCH TRANSDERM PRN (08:55)
[2019-06-29] MEDS: TAMSULOSIN 0.4 MG CAPSULE PO SCH (10:15)
[2019-06-29] MEDS: PREGABALIN 100 MG CAPSULE PO SCH ×2 (10:15→21:16)
[2019-06-29] MEDS: MEGESTROL 40 MG TABLET PEG SCH ×2 (10:16→21:17)
[2019-06-29] MEDS: FLUoxetine 20 MG CAPSULE PEG SCH (10:16)
[2019-06-29] MEDS: busPIRone 10 MG TABLET PO SCH ×2 (10:16→21:16)
[2019-06-29] MEDS: HYDROCORTISONE 10 MG TABLET PEG SCH (10:16)
[2019-06-29] MEDS: sitaGLIPtin 25 MG TABLET PEG SCH (10:17)
[2019-06-29] MEDS: CITALOPRAM 20 MG TABLET PO SCH (10:17)
[2019-06-29] MEDS: MORPHINE ER 30 MG TABLET PO SCH ×2 (10:17→21:16)
[2019-06-29] MEDS: FINASTERIDE 5 MG TABLET PO SCH (10:17)
[2019-06-29] MEDS: CETIRIZINE 10 MG TABLET PO SCH (10:22)
[2019-06-29] MEDS: ALBUTEROL/IPRATROPIUM 3 ML NEB RESP TX SCH ×3 (10:59→19:28)
[2019-06-29] MEDS: Ritonavir [Norvir] 100 MG PO SCH (12:37)
[2019-06-29] MEDS: ATAZANAVIR 300 MG PO SCH (12:37)
[2019-06-29] MEDS: RILPIVIRINE 25 MG PO SCH (12:37)
[2019-06-29] MEDS: INSULIN REGULAR 100 UNIT/ML SUBCUT SCH ×3 (12:39→21:17)
[2019-06-29] MEDS: ARFORMOTEROL 15 MCG/2 ML NEB RESP TX SCH (19:28)
[2019-06-30] MEDS: MORPHINE 4 MG/1 ML VIAL IV PRN ×4 (02:05→20:27)
[2019-06-30] MEDS: PIPERACILLIN/TAZOBACTAM 3,375 MG in SODIUM CHLORIDE 0.9% 100 ML IV SCH ×3 (02:07→17:55)
[2019-06-30 04:57] LABS: Basophils % 0.4 % (0.0-0.8); Eosinophils # 0.1 10*3/uL (0.0-0.87); Hematocrit 31.5 VOL% (42.0-52.0); Immature Granulocytes % 1.2 %; Immature Granulocytes Absolute 0.13 #; Lymphocytes % 19.3 % (21.2-54.2); Mean Corpuscular HGB Conc 31.7 GM/DL (32-36); Mean Corpuscular Volume 91.8 FL (87-102); Mean Platelet Volume 11.7 FL (9.6-12.0); Monocytes % 9.4 % (1.7-12.7); Neutrophils % 68.7 % (38.7-73.9); Platelet Count 256 T/CUMM (130-400); Red Blood Count 3.43 MC/CUMM (3.8-5.5); Red Cell Distribution Width 15.5 % (9.3-17.3); White Blood Count 10.6 T/CUMM (4-12)
[2019-06-30 05:37] LABS: Albumin 2.2 G/DL (3.4-5.0); Calcium 8.9 MG/DL (8.5-10.1); Osmolality,Calculated 287.3 MOS/KG (273-304); Total Protein 6.4 G/DL (6.4-8.3)
[2019-06-30] MEDS: ARFORMOTEROL 15 MCG/2 ML NEB RESP TX SCH ×2 (06:58→21:00)
[2019-06-30] MEDS: ALBUTEROL/IPRATROPIUM 3 ML NEB RESP TX SCH ×4 (06:58→21:00)
[2019-06-30] MEDS: sitaGLIPtin 25 MG TABLET PEG SCH (08:46)
[2019-06-30] MEDS: FINASTERIDE 5 MG TABLET PO SCH (08:46)
[2019-06-30] MEDS: busPIRone 10 MG TABLET PO SCH ×2 (08:46→20:26)
[2019-06-30] MEDS: CITALOPRAM 20 MG TABLET PO SCH (08:47)
[2019-06-30] MEDS: TAMSULOSIN 0.4 MG CAPSULE PO SCH (08:47)
[2019-06-30] MEDS: CETIRIZINE 10 MG TABLET PO SCH (08:47)
[2019-06-30] MEDS: HYDROCORTISONE 10 MG TABLET PEG SCH (08:47)
[2019-06-30] MEDS: MORPHINE ER 30 MG TABLET PO SCH ×2 (08:47→20:26)
[2019-06-30] MEDS: FLUoxetine 20 MG CAPSULE PEG SCH (08:47)
[2019-06-30] MEDS: PREGABALIN 100 MG CAPSULE PO SCH ×2 (08:50→20:26)
[2019-06-30] MEDS: ATAZANAVIR 300 MG PO SCH (09:42)
[2019-06-30] MEDS: INSULIN REGULAR 100 UNIT/ML SUBCUT SCH ×4 (09:42→21:28)
[2019-06-30] MEDS: RILPIVIRINE 25 MG PO SCH (09:43)
[2019-06-30] MEDS: Ritonavir [Norvir] 100 MG PO SCH (09:43)
[2019-06-30] MEDS: MEGESTROL 40 MG TABLET PEG SCH ×2 (11:06→20:26)
[2019-06-30] MEDS: SODIUM CHLORIDE 0.9% 1,000 ML IV SCH (11:13)
[2019-07-01] MEDS: MORPHINE 4 MG/1 ML VIAL IV PRN ×4 (00:59→15:16)
[2019-07-01] MEDS: PIPERACILLIN/TAZOBACTAM 3,375 MG in SODIUM CHLORIDE 0.9% 100 ML IV SCH ×2 (02:45→09:04)
[2019-07-01 05:23] LABS: Basophils % 0.4 % (0.0-0.8); Eosinophils # 0.1 10*3/uL (0.0-0.87); Eosinophils % 1.1 % (0.00-10.9); Hematocrit 30.4 VOL% (42.0-52.0); Hemoglobin 9.6 GM/DL (14.0-18.0); Immature Granulocytes % 1.3 %; Immature Granulocytes Absolute 0.13 #; Lymphocytes # 2.1 10*3/uL (1.4-4.0); Lymphocytes % 20.5 % (21.2-54.2); Mean Corpuscular HGB Conc 31.6 GM/DL (32-36); Mean Corpuscular Volume 92.4 FL (87-102); Mean Platelet Volume 12.4 FL (9.6-12.0); Monocytes % 8.6 % (1.7-12.7); Neutrophils % 68.1 % (38.7-73.9); Platelet Count 232 T/CUMM (130-400); Red Blood Count 3.29 MC/CUMM (3.8-5.5); Red Cell Distribution Width 15.7 % (9.3-17.3); White Blood Count 10.2 T/CUMM (4-12)
[2019-07-01] MEDS: ALBUTEROL/IPRATROPIUM 3 ML NEB RESP TX SCH ×4 (07:11→19:13)
[2019-07-01] MEDS: ARFORMOTEROL 15 MCG/2 ML NEB RESP TX SCH ×2 (07:11→19:13)
[2019-07-01] MEDS: INSULIN REGULAR 100 UNIT/ML SUBCUT SCH ×4 (08:43→22:32)
[2019-07-01] MEDS: FLUoxetine 20 MG CAPSULE PEG SCH (08:54)
[2019-07-01] MEDS: busPIRone 10 MG TABLET PO SCH ×2 (08:54→22:11)
[2019-07-01] MEDS: PREGABALIN 100 MG CAPSULE PO SCH ×2 (08:54→22:11)
[2019-07-01] MEDS: sitaGLIPtin 25 MG TABLET PEG SCH (08:55)
[2019-07-01] MEDS: CITALOPRAM 20 MG TABLET PO SCH (08:55)
[2019-07-01] MEDS: DUTASTERIDE 0.5 MG CAPSULE PO SCH (08:55)
[2019-07-01] MEDS: MORPHINE ER 30 MG TABLET PO SCH ×2 (08:55→22:11)
[2019-07-01] MEDS: HYDROCORTISONE 10 MG TABLET PEG SCH ×2 (08:55→10:51)
[2019-07-01] MEDS: CETIRIZINE 10 MG TABLET PO SCH (08:55)
[2019-07-01] MEDS: MEGESTROL 40 MG TABLET PEG SCH ×2 (08:55→22:11)
[2019-07-01] MEDS: TAMSULOSIN 0.4 MG CAPSULE PO SCH ×2 (09:04→22:11)
[2019-07-01] MEDS: ATAZANAVIR 300 MG PO SCH (10:21)
[2019-07-01] MEDS: RILPIVIRINE 25 MG PO SCH (10:22)
[2019-07-01] MEDS: SODIUM CHLORIDE 0.9% 1,000 ML IV SCH (10:22)
[2019-07-01] MEDS: Ritonavir [Norvir] 100 MG PO SCH (10:22)
[2019-07-01] MEDS: DICLOFENAC 1% GEL 100 GM TUBE TOP SCH ×2 (17:17→22:14)
[2019-07-02] MEDS: MORPHINE 4 MG/1 ML VIAL IV PRN (02:45)
[2019-07-02 06:12] LABS: Calcium 8.8 MG/DL (8.5-10.1); Osmolality,Calculated 290.1 MOS/KG (273-304); Prealbumin 26.8 MG/DL (20-40)
[2019-07-02] MEDS: ARFORMOTEROL 15 MCG/2 ML NEB RESP TX SCH ×2 (07:23→19:04)
[2019-07-02] MEDS: ALBUTEROL/IPRATROPIUM 3 ML NEB RESP TX SCH ×4 (07:23→19:04)
[2019-07-02] MEDS: INSULIN REGULAR 100 UNIT/ML SUBCUT SCH ×4 (08:00→21:19)
[2019-07-02] MEDS: MORPHINE ER 30 MG TABLET PO SCH ×2 (08:57→21:20)
[2019-07-02] MEDS: busPIRone 10 MG TABLET PO SCH ×2 (08:57→21:20)
[2019-07-02] MEDS: PREGABALIN 100 MG CAPSULE PO SCH ×2 (08:57→21:18)
[2019-07-02] MEDS: sitaGLIPtin 25 MG TABLET PEG SCH (08:57)
[2019-07-02] MEDS: CETIRIZINE 10 MG TABLET PO SCH (08:57)
[2019-07-02] MEDS: TAMSULOSIN 0.4 MG CAPSULE PO SCH ×2 (08:57→21:18)
[2019-07-02] MEDS: CITALOPRAM 20 MG TABLET PO SCH (08:58)
[2019-07-02] MEDS: HYDROCORTISONE 10 MG TABLET PEG SCH (08:58)
[2019-07-02] MEDS: FLUoxetine 20 MG CAPSULE PEG SCH (08:58)
[2019-07-02] MEDS: DUTASTERIDE 0.5 MG CAPSULE PO SCH (08:59)
[2019-07-02] MEDS: MEGESTROL 40 MG TABLET PEG SCH ×2 (08:59→21:18)
[2019-07-02] MEDS: DICLOFENAC 1% GEL 100 GM TUBE TOP SCH ×4 (09:04→21:20)
[2019-07-02] MEDS: RILPIVIRINE 25 MG PO SCH (09:05)
[2019-07-02] MEDS: Ritonavir [Norvir] 100 MG PO SCH (09:05)
[2019-07-02] MEDS: ATAZANAVIR 300 MG PO SCH (09:49)
[2019-07-02] MEDS: LIDOCAINE 5% PATCH TRANSDERM SCH (16:11)
[2019-07-02] MEDS: SODIUM CHLORIDE 0.9% 1,000 ML IV SCH ×3 (20:24→22:33)
[2019-07-02] MEDS: LOSARTAN 25 MG TABLET PO SCH (21:19)
[2019-07-03] MEDS: INSULIN REGULAR 100 UNIT/ML SUBCUT SCH ×2 (07:31→11:25)
[2019-07-03] MEDS: ARFORMOTEROL 15 MCG/2 ML NEB RESP TX SCH (07:50)
[2019-07-03] MEDS: ALBUTEROL/IPRATROPIUM 3 ML NEB RESP TX SCH ×3 (07:50→14:59)
[2019-07-03] MEDS: FLUoxetine 20 MG CAPSULE PEG SCH (09:57)
[2019-07-03] MEDS: busPIRone 10 MG TABLET PO SCH (09:57)
[2019-07-03] MEDS: LOSARTAN 25 MG TABLET PO SCH (09:58)
[2019-07-03] MEDS: sitaGLIPtin 25 MG TABLET PEG SCH (09:58)
[2019-07-03] MEDS: CETIRIZINE 10 MG TABLET PO SCH (09:58)
[2019-07-03] MEDS: MORPHINE ER 30 MG TABLET PO SCH (09:58)
[2019-07-03] MEDS: CITALOPRAM 20 MG TABLET PO SCH (09:58)
[2019-07-03] MEDS: MEGESTROL 40 MG TABLET PEG SCH (09:58)
[2019-07-03] MEDS: PREGABALIN 100 MG CAPSULE PO SCH (09:59)
[2019-07-03] MEDS: HYDROCORTISONE 10 MG TABLET PEG SCH (09:59)
[2019-07-03] MEDS: DICLOFENAC 1% GEL 100 GM TUBE TOP SCH (09:59)
[2019-07-03] MEDS: TAMSULOSIN 0.4 MG CAPSULE PO SCH (09:59)
[2019-07-03] MEDS: SODIUM CHLORIDE 0.9% 1,000 ML IV SCH (10:00)
[2019-07-03] MEDS: DUTASTERIDE 0.5 MG CAPSULE PO SCH (10:05)
[2019-07-03] MEDS: LIDOCAINE 5% PATCH TRANSDERM SCH (10:05)
[2019-07-03] MEDS: ATAZANAVIR 300 MG PO SCH (10:05)
[2019-07-03] MEDS: Ritonavir [Norvir] 100 MG PO SCH (10:06)
[2019-07-03] MEDS: RILPIVIRINE 25 MG PO SCH (10:06)
[2019-07-03 11:47] VITALS: BP 169/92
== END 2019-07-03 15:15 | disposition home health service (06) | DRG 696 ==
LOC: EDUNIT# → EDBD → N.ED 19:05 → SUATTDRO 23:08 → N.EDINP 23:08 → N.4E 23:48
PROVIDERS: ADMIT Family Medicine; ATTEND Internal Medicine

== ENCOUNTER 2019-07-14 15:41 | Inpatient (IN) ==
[2019-07-14] MEDS ORDERED: ONDANSETRON 4 MG/2 ML VIAL IV STA (16:03)
[2019-07-14] MEDS ORDERED: ALBUTEROL/IPRATROPIUM 3 ML NEB RESP TX STA (16:03)
[2019-07-14] MEDS ORDERED: SODIUM CHLORIDE 0.9% 1,000 ML IV STA (16:03)
[2019-07-14] MEDS ORDERED: methylPREDNISolone SOD SUC 125 MG/2 ML VIAL IV STA (16:03)
[2019-07-14] MEDS ORDERED: ORPHENADRINE 60 MG/2 ML VIAL IV STA (16:05)
[2019-07-14] MEDS ORDERED: KETOROLAC 30 MG/1 ML VIAL IV STA (16:05)
[2019-07-14] MEDS ORDERED: MEROPENEM 2,000 MG in SODIUM CHLORIDE 0.9% 100 ML IV ONE (16:40)
[2019-07-14 16:43] LABS: Basophils % 0.3 % (0.0-0.8); Eosinophils # 0.1 10*3/uL (0.0-0.87); Eosinophils % 0.6 % (0.00-10.9); Immature Granulocytes % 0.7 %; Immature Granulocytes Absolute 0.07 #; Lymphocytes # 1.7 10*3/uL (1.4-4.0); Lymphocytes % 17.2 % (21.2-54.2); Mean Corpuscular HGB Conc 32.4 GM/DL (32-36); Mean Corpuscular Volume 87.4 FL (87-102); Mean Platelet Volume 13.1 FL (9.6-12.0); Monocytes % 6.4 % (1.7-12.7); Neutrophils % 74.8 % (38.7-73.9); Platelet Count 212 T/CUMM (130-400); Red Blood Count 3.89 MC/CUMM (3.8-5.5); Red Cell Distribution Width 14.6 % (9.3-17.3); White Blood Count 10.1 T/CUMM (4-12)
[2019-07-14 16:51] LABS: PT Patient Result 10.9 SECS (9.6-12.2); Partial Thromboplastin Time 25.6 SECS (20.8-36.0)
[2019-07-14 17:03] LABS: Alanine Aminotransferase 78 U/L (16-61); Albumin 2.6 G/DL (3.4-5.0); Alkaline Phosphatase 109 U/L (45-117); Aspartate Amino Transferase 51 U/L (0-37); Blood Urea Nitrogen 32 MG/DL (7-18); Calcium 9.9 MG/DL (8.5-10.1); Estimated Glom Filtration Rate 91 ML/MIN; Glucose 240 MG/DL (74-106); Osmolality,Calculated 280.4 MOS/KG (273-304); Total Protein 8.1 G/DL (6.4-8.3)
[2019-07-14 17:54] LABS: Apearance,Urine CLEAR (Clear); Bilirubin,Urine Negative (Negative); Blood, Urine Moderate mg/dL (Negative); Glucose,Urine (UA) Negative (Negative); Ketones,Urine Negative (Negative); Nitrite,Urine Negative (Negative); Protein,Urine 100 MG/DL; RBC,Urine 184 /HPF (0-4); Urine Color Yellow (Yellow); Urine Specific Gravity 1.017 (1.001-1.035)
[2019-07-14] MEDS ORDERED: MEPERIDINE 25 MG/1 ML VIAL IV STA (17:57)
[2019-07-14 18:31] LABS: Barbiturates Screen,Urine Negative (Negative); Benzodiazepines Screen,Urine Negative (Negative); Cannabinoid Screen,Urine Negative (Negative); Opiate Screen,Urine Positive (Negative); Phencyclidine Screen,Urine Negative (Negative)
[2019-07-14] MEDS ORDERED: DEXTROSE 10% 250 ML BAG IV PRN (18:53)
[2019-07-14] MEDS ORDERED: ONDANSETRON 4 MG/2 ML VIAL IV PRN (18:53)
[2019-07-14] MEDS ORDERED: GLUCAGON 1 MG VIAL IM PRN (18:53)
[2019-07-14] MEDS ORDERED: LINACLOTIDE 145 MCG CAPSULE PO PRN (19:06)
[2019-07-14] MEDS ORDERED: FLUTICASONE 50 MCG NASAL SPRAY 16 GM BOTTLE BOTH NARES PRN (19:06)
[2019-07-14] MEDS: ALBUTEROL/IPRATROPIUM 3 ML NEB RESP TX SCH (20:12)
[2019-07-14] MEDS: INSULIN LISPRO 100 UNIT/ML SUBCUT SCH (22:28)
[2019-07-14] MEDS: ENOXAPARIN 40 MG/0.4 ML SYRINGE SUBCUT SCH (22:28)
[2019-07-14] MEDS: MEGESTROL 40 MG TABLET PEG SCH (22:30)
[2019-07-14] MEDS: DULoxetine 30 MG CAPSULE PO SCH (22:30)
[2019-07-14] MEDS: TAMSULOSIN 0.4 MG CAPSULE PO SCH (22:30)
[2019-07-14] MEDS: LOSARTAN 25 MG TABLET PO SCH (22:30)
[2019-07-14] MEDS: busPIRone 10 MG TABLET PO SCH (22:30)
[2019-07-14] MEDS: LEVOFLOXACIN INJ 750 MG in PREMIX 1 EACH IV SCH (22:35)
[2019-07-14] MEDS: SODIUM CHLORIDE 0.9% 1,000 ML IV SCH (22:35)
[2019-07-15] MEDS: ALBUTEROL/IPRATROPIUM 3 ML NEB RESP TX SCH ×4 (00:46→19:01)
[2019-07-15] MEDS: MEROPENEM 500 MG in SODIUM CHLORIDE 0.9% 100 ML IV SCH ×4 (01:35→21:01)
[2019-07-15 06:22] LABS: Hematocrit 30.4 VOL% (42.0-52.0); Hemoglobin 9.7 GM/DL (14.0-18.0); Immature Granulocytes % 0.8 %; Immature Granulocytes Absolute 0.06 #; Lymphocytes # 0.6 10*3/uL (1.4-4.0); Lymphocytes % 7.9 % (21.2-54.2); Mean Corpuscular HGB Conc 31.9 GM/DL (32-36); Mean Corpuscular Volume 88.4 FL (87-102); Mean Platelet Volume 13.3 FL (9.6-12.0); Neutrophils % 90.3 % (38.7-73.9); Platelet Count 178 T/CUMM (130-400); Red Blood Count 3.44 MC/CUMM (3.8-5.5); Red Cell Distribution Width 14.6 % (9.3-17.3); White Blood Count 7.4 T/CUMM (4-12)
[2019-07-15 06:48] LABS: Calcium 9.5 MG/DL (8.5-10.1); Osmolality,Calculated 289.8 MOS/KG (273-304); Risk Ratio 3.12; Thyroid Stimulating Hormone 0.576 uIU/ml (0.358-3.74); VLDL CHOLESTEROL 15.8 MG/DL
[2019-07-15] MEDS ORDERED: ATAZANAVIR 300 MG PO SCH (09:00)
[2019-07-15] MEDS ORDERED: RILPIVIRINE 25 MG PO SCH (09:00)
[2019-07-15] MEDS ORDERED: Ritonavir [Norvir] 100 MG PO SCH (09:00)
[2019-07-15] MEDS: INSULIN LISPRO 100 UNIT/ML SUBCUT SCH ×5 (09:34→21:01)
[2019-07-15] MEDS: CETIRIZINE 10 MG TABLET PO SCH (09:45)
[2019-07-15] MEDS: DUTASTERIDE 0.5 MG CAPSULE PO SCH (09:45)
[2019-07-15] MEDS: CITALOPRAM 20 MG TABLET PO SCH (09:45)
[2019-07-15] MEDS: MEGESTROL 40 MG TABLET PEG SCH ×2 (09:45→21:04)
[2019-07-15] MEDS: TAMSULOSIN 0.4 MG CAPSULE PO SCH ×2 (09:45→21:04)
[2019-07-15] MEDS: DULoxetine 30 MG CAPSULE PO SCH ×2 (09:45→21:03)
[2019-07-15] MEDS: PANTOPRAZOLE 40 MG TABLET PO SCH (09:46)
[2019-07-15] MEDS: LOSARTAN 25 MG TABLET PO SCH ×2 (09:46→21:04)
[2019-07-15] MEDS: busPIRone 10 MG TABLET PO SCH ×2 (09:46→21:03)
[2019-07-15] MEDS: SODIUM CHLORIDE 0.9% 1,000 ML IV SCH (14:48)
[2019-07-15] MEDS: SUCRALFATE 1 GM/10 ML UDCUP PO SCH ×2 (17:59→21:03)
[2019-07-15] MEDS: ENOXAPARIN 40 MG/0.4 ML SYRINGE SUBCUT SCH (21:03)
[2019-07-15] MEDS: LEVOFLOXACIN INJ 750 MG in PREMIX 1 EACH IV SCH (22:37)
[2019-07-16] MEDS: ALBUTEROL/IPRATROPIUM 3 ML NEB RESP TX SCH ×4 (00:12→19:54)
[2019-07-16] MEDS: MORPHINE 4 MG/1 ML VIAL IV PRN ×5 (03:45→22:33)
[2019-07-16] MEDS: SODIUM CHLORIDE 0.9% 1,000 ML IV SCH ×3 (03:46→11:35)
[2019-07-16] MEDS: MEROPENEM 500 MG in SODIUM CHLORIDE 0.9% 100 ML IV SCH ×4 (03:47→20:57)
[2019-07-16 04:53] LABS: Basophils % 0.1 % (0.0-0.8); Hematocrit 29.4 VOL% (42.0-52.0); Hemoglobin 9.3 GM/DL (14.0-18.0); Immature Granulocytes % 0.8 %; Immature Granulocytes Absolute 0.11 #; Lymphocytes # 1.2 10*3/uL (1.4-4.0); Lymphocytes % 8.9 % (21.2-54.2); Mean Corpuscular HGB Conc 31.6 GM/DL (32-36); Mean Corpuscular Volume 89.4 FL (87-102); Mean Platelet Volume 13.3 FL (9.6-12.0); Monocytes % 6.8 % (1.7-12.7); Neutrophils % 83.4 % (38.7-73.9); Platelet Count 180 T/CUMM (130-400); Red Blood Count 3.29 MC/CUMM (3.8-5.5); Red Cell Distribution Width 14.6 % (9.3-17.3); White Blood Count 13.9 T/CUMM (4-12)
[2019-07-16] MEDS: TAMSULOSIN 0.4 MG CAPSULE PO SCH ×2 (09:56→20:55)
[2019-07-16] MEDS: CETIRIZINE 10 MG TABLET PO SCH (09:56)
[2019-07-16] MEDS: DUTASTERIDE 0.5 MG CAPSULE PO SCH (09:56)
[2019-07-16] MEDS: CITALOPRAM 20 MG TABLET PO SCH (09:56)
[2019-07-16] MEDS: busPIRone 10 MG TABLET PO SCH ×2 (09:56→20:55)
[2019-07-16] MEDS: MEGESTROL 40 MG TABLET PEG SCH ×2 (09:57→20:54)
[2019-07-16] MEDS: LOSARTAN 25 MG TABLET PO SCH ×2 (09:57→20:55)
[2019-07-16] MEDS: DULoxetine 30 MG CAPSULE PO SCH ×2 (09:57→20:54)
[2019-07-16] MEDS: PANTOPRAZOLE 40 MG TABLET PO SCH (09:57)
[2019-07-16] MEDS: SUCRALFATE 1 GM/10 ML UDCUP PO SCH ×4 (09:58→20:54)
[2019-07-16] MEDS: INSULIN LISPRO 100 UNIT/ML SUBCUT SCH ×4 (09:58→22:18)
[2019-07-16] MEDS: LEVOFLOXACIN INJ 750 MG in PREMIX 1 EACH IV SCH (20:51)
[2019-07-16] MEDS: CYCLOBENZAPRINE 10 MG TABLET PO PRN (20:55)
[2019-07-16] MEDS: ENOXAPARIN 40 MG/0.4 ML SYRINGE SUBCUT SCH (20:57)
[2019-07-17] MEDS: ALBUTEROL/IPRATROPIUM 3 ML NEB RESP TX SCH ×4 (00:47→19:37)
[2019-07-17] MEDS: MEROPENEM 500 MG in SODIUM CHLORIDE 0.9% 100 ML IV SCH ×4 (04:30→20:56)
[2019-07-17] MEDS: SODIUM CHLORIDE 0.9% 1,000 ML IV SCH ×3 (04:30→19:50)
[2019-07-17 05:10] LABS: Basophils % 0.1 % (0.0-0.8); Eosinophils % 0.4 % (0.00-10.9); Hematocrit 29.4 VOL% (42.0-52.0); Hemoglobin 9.2 GM/DL (14.0-18.0); Immature Granulocytes % 0.9 %; Lymphocytes # 1.2 10*3/uL (1.4-4.0); Lymphocytes % 11.2 % (21.2-54.2); Mean Corpuscular HGB Conc 31.3 GM/DL (32-36); Mean Corpuscular Volume 89.6 FL (87-102); Mean Platelet Volume 13.9 FL (9.6-12.0); Monocytes % 9.6 % (1.7-12.7); Neutrophils % 77.8 % (38.7-73.9); Platelet Count 148 T/CUMM (130-400); Red Blood Count 3.28 MC/CUMM (3.8-5.5); Red Cell Distribution Width 14.7 % (9.3-17.3); White Blood Count 10.8 T/CUMM (4-12)
[2019-07-17 05:34] LABS: Osmolality,Calculated 288.4 MOS/KG (273-304); Prealbumin 29.5 MG/DL (20-40)
[2019-07-17] MEDS: MORPHINE 4 MG/1 ML VIAL IV PRN ×2 (05:51→13:34)
[2019-07-17] MEDS: TAMSULOSIN 0.4 MG CAPSULE PO SCH ×2 (10:34→20:59)
[2019-07-17] MEDS: MEGESTROL 40 MG TABLET PEG SCH ×2 (10:34→20:59)
[2019-07-17] MEDS: SUCRALFATE 1 GM/10 ML UDCUP PO SCH ×4 (10:34→20:59)
[2019-07-17] MEDS: PANTOPRAZOLE 40 MG TABLET PO SCH (10:38)
[2019-07-17] MEDS: CITALOPRAM 20 MG TABLET PO SCH (10:38)
[2019-07-17] MEDS: LOSARTAN 25 MG TABLET PO SCH ×2 (10:38→20:58)
[2019-07-17] MEDS: busPIRone 10 MG TABLET PO SCH ×2 (10:39→20:58)
[2019-07-17] MEDS: CETIRIZINE 10 MG TABLET PO SCH (10:39)
[2019-07-17] MEDS: DULoxetine 30 MG CAPSULE PO SCH ×2 (10:39→20:58)
[2019-07-17] MEDS: DUTASTERIDE 0.5 MG CAPSULE PO SCH (10:39)
[2019-07-17] MEDS: INSULIN LISPRO 100 UNIT/ML SUBCUT SCH ×4 (10:45→21:59)
[2019-07-17] MEDS: CYCLOBENZAPRINE 10 MG TABLET PO PRN (13:02)
[2019-07-17] MEDS ORDERED: guaiFENesin 200 MG/10 ML UDCUP PO PRN (16:36)
[2019-07-17] MEDS: LEVOFLOXACIN INJ 750 MG in PREMIX 1 EACH IV SCH (20:57)
[2019-07-17] MEDS: ENOXAPARIN 40 MG/0.4 ML SYRINGE SUBCUT SCH (20:58)
[2019-07-17] MEDS: traZODone 50 MG TABLET PO SCH (20:58)
[2019-07-17] MEDS: MORPHINE ER 30 MG TABLET PO SCH (20:58)
[2019-07-17] MEDS: GABAPENTIN 100 MG CAPSULE PO SCH (20:58)
[2019-07-18] MEDS: MORPHINE 4 MG/1 ML VIAL IV PRN ×4 (00:10→23:09)
[2019-07-18] MEDS: ALBUTEROL/IPRATROPIUM 3 ML NEB RESP TX SCH ×4 (00:53→18:23)
[2019-07-18] MEDS: MEROPENEM 500 MG in SODIUM CHLORIDE 0.9% 100 ML IV SCH ×4 (03:59→23:12)
[2019-07-18 06:20] LABS: Basophils % 0.2 % (0.0-0.8); Eosinophils # 0.1 10*3/uL (0.0-0.87); Eosinophils % 0.7 % (0.00-10.9); Hematocrit 28.7 VOL% (42.0-52.0); Immature Granulocytes % 1.4 %; Immature Granulocytes Absolute 0.14 #; Lymphocytes # 1.4 10*3/uL (1.4-4.0); Lymphocytes % 13.4 % (21.2-54.2); Mean Corpuscular HGB Conc 31.4 GM/DL (32-36); Mean Corpuscular Volume 89.1 FL (87-102); Monocytes % 8.1 % (1.7-12.7); Neutrophils % 76.2 % (38.7-73.9); Platelet Count 137 T/CUMM (130-400); Red Blood Count 3.22 MC/CUMM (3.8-5.5); White Blood Count 10.4 T/CUMM (4-12)
[2019-07-18] MEDS: INSULIN LISPRO 100 UNIT/ML SUBCUT SCH ×4 (08:11→20:37)
[2019-07-18 10:26] LABS: % CD4 (T Cells) 31 % (32-64); % CD8 (T Cells) 50 % (8-40); 4/8 Ratio 0.6 (>=0.9)
[2019-07-18] MEDS: MEGESTROL 40 MG TABLET PEG SCH ×2 (10:58→20:18)
[2019-07-18] MEDS: DULoxetine 30 MG CAPSULE PO SCH ×2 (10:58→20:15)
[2019-07-18] MEDS: SUCRALFATE 1 GM/10 ML UDCUP PO SCH ×5 (10:58→20:38)
[2019-07-18] MEDS: TAMSULOSIN 0.4 MG CAPSULE PO SCH ×2 (10:58→20:15)
[2019-07-18] MEDS: DUTASTERIDE 0.5 MG CAPSULE PO SCH (10:58)
[2019-07-18] MEDS: CITALOPRAM 20 MG TABLET PO SCH (10:59)
[2019-07-18] MEDS: LOSARTAN 25 MG TABLET PO SCH ×2 (10:59→20:17)
[2019-07-18] MEDS: CETIRIZINE 10 MG TABLET PO SCH (10:59)
[2019-07-18] MEDS: PANTOPRAZOLE 40 MG TABLET PO SCH (10:59)
[2019-07-18] MEDS: SODIUM CHLORIDE 0.9% 1,000 ML IV SCH ×2 (10:59→20:19)
[2019-07-18] MEDS: MORPHINE ER 30 MG TABLET PO SCH ×2 (11:09→20:15)
[2019-07-18] MEDS: GABAPENTIN 100 MG CAPSULE PO SCH ×2 (11:09→20:18)
[2019-07-18] MEDS: busPIRone 10 MG TABLET PO SCH ×2 (11:09→20:15)
[2019-07-18] MEDS: traZODone 50 MG TABLET PO SCH (20:17)
[2019-07-18] MEDS: LEVOFLOXACIN INJ 750 MG in PREMIX 1 EACH IV SCH (20:18)
[2019-07-18] MEDS: ENOXAPARIN 40 MG/0.4 ML SYRINGE SUBCUT SCH (20:18)
[2019-07-19] MEDS: ALBUTEROL/IPRATROPIUM 3 ML NEB RESP TX SCH ×4 (00:31→20:18)
[2019-07-19] MEDS: MEROPENEM 500 MG in SODIUM CHLORIDE 0.9% 100 ML IV SCH ×3 (05:20→17:44)
[2019-07-19] MEDS: MORPHINE 4 MG/1 ML VIAL IV PRN ×3 (05:21→16:22)
[2019-07-19] MEDS: MEGESTROL 40 MG TABLET PEG SCH ×2 (10:02→21:22)
[2019-07-19] MEDS: DULoxetine 30 MG CAPSULE PO SCH ×2 (10:03→21:22)
[2019-07-19] MEDS: CITALOPRAM 20 MG TABLET PO SCH (10:03)
[2019-07-19] MEDS: LOSARTAN 25 MG TABLET PO SCH ×2 (10:03→21:23)
[2019-07-19] MEDS: CETIRIZINE 10 MG TABLET PO SCH (10:03)
[2019-07-19] MEDS: MORPHINE ER 30 MG TABLET PO SCH ×2 (10:03→21:23)
[2019-07-19] MEDS: DUTASTERIDE 0.5 MG CAPSULE PO SCH (10:03)
[2019-07-19] MEDS: busPIRone 10 MG TABLET PO SCH ×2 (10:03→21:22)
[2019-07-19] MEDS: TAMSULOSIN 0.4 MG CAPSULE PO SCH ×2 (10:03→21:22)
[2019-07-19] MEDS: SODIUM CHLORIDE 0.9% 1,000 ML IV SCH ×2 (10:05→21:33)
[2019-07-19] MEDS: GABAPENTIN 100 MG CAPSULE PO SCH ×2 (10:07→21:21)
[2019-07-19] MEDS: PANTOPRAZOLE 40 MG TABLET PO SCH (10:07)
[2019-07-19] MEDS: INSULIN LISPRO 100 UNIT/ML SUBCUT SCH ×3 (10:08→16:21)
[2019-07-19] MEDS: SUCRALFATE 1 GM/10 ML UDCUP PO SCH ×4 (10:08→21:22)
[2019-07-19] MEDS: traZODone 50 MG TABLET PO SCH (21:21)
[2019-07-19] MEDS: ENOXAPARIN 40 MG/0.4 ML SYRINGE SUBCUT SCH (21:21)
[2019-07-19] MEDS: LEVOFLOXACIN INJ 750 MG in PREMIX 1 EACH IV SCH (21:24)
[2019-07-20] MEDS: MEROPENEM 500 MG in SODIUM CHLORIDE 0.9% 100 ML IV SCH ×5 (00:27→23:54)
[2019-07-20] MEDS: MORPHINE 4 MG/1 ML VIAL IV PRN ×2 (00:27→15:59)
[2019-07-20] MEDS: INSULIN LISPRO 100 UNIT/ML SUBCUT SCH ×5 (00:30→21:59)
[2019-07-20] MEDS: ALBUTEROL/IPRATROPIUM 3 ML NEB RESP TX SCH ×4 (00:38→19:31)
[2019-07-20] MEDS: DUTASTERIDE 0.5 MG CAPSULE PO SCH (09:08)
[2019-07-20] MEDS: DULoxetine 30 MG CAPSULE PO SCH ×2 (09:08→21:33)
[2019-07-20] MEDS: CITALOPRAM 20 MG TABLET PO SCH (09:08)
[2019-07-20] MEDS: SUCRALFATE 1 GM/10 ML UDCUP PO SCH ×4 (09:08→21:35)
[2019-07-20] MEDS: MEGESTROL 40 MG TABLET PEG SCH ×2 (09:08→21:34)
[2019-07-20] MEDS: LOSARTAN 25 MG TABLET PO SCH ×2 (09:08→21:35)
[2019-07-20] MEDS: CETIRIZINE 10 MG TABLET PO SCH (09:09)
[2019-07-20] MEDS: PANTOPRAZOLE 40 MG TABLET PO SCH (09:09)
[2019-07-20] MEDS: GABAPENTIN 100 MG CAPSULE PO SCH ×2 (09:09→21:34)
[2019-07-20] MEDS: MORPHINE ER 30 MG TABLET PO SCH ×2 (09:09→21:35)
[2019-07-20] MEDS: busPIRone 10 MG TABLET PO SCH ×2 (09:09→21:35)
[2019-07-20] MEDS: TAMSULOSIN 0.4 MG CAPSULE PO SCH ×2 (09:09→21:35)
[2019-07-20] MEDS: SODIUM CHLORIDE 0.9% 1,000 ML IV SCH ×3 (09:10→22:16)
[2019-07-20] MEDS: CYCLOBENZAPRINE 10 MG TABLET PO PRN (11:37)
[2019-07-20] MEDS ORDERED: INFLUENZA VIRUS VACCINE 0.5 ML SYRINGE IM ONE (14:43)
[2019-07-20] MEDS: traZODone 50 MG TABLET PO SCH (21:33)
[2019-07-20] MEDS: ENOXAPARIN 40 MG/0.4 ML SYRINGE SUBCUT SCH (21:37)
[2019-07-20] MEDS: LEVOFLOXACIN INJ 750 MG in PREMIX 1 EACH IV SCH (21:39)
[2019-07-21] MEDS: ALBUTEROL/IPRATROPIUM 3 ML NEB RESP TX SCH ×4 (00:22→19:56)
[2019-07-21] MEDS: MEROPENEM 500 MG in SODIUM CHLORIDE 0.9% 100 ML IV SCH ×4 (05:32→23:26)
[2019-07-21] MEDS: DUTASTERIDE 0.5 MG CAPSULE PO SCH (09:12)
[2019-07-21] MEDS: busPIRone 10 MG TABLET PO SCH ×2 (09:12→20:05)
[2019-07-21] MEDS: CETIRIZINE 10 MG TABLET PO SCH (09:12)
[2019-07-21] MEDS: GABAPENTIN 100 MG CAPSULE PO SCH ×2 (09:12→20:05)
[2019-07-21] MEDS: MEGESTROL 40 MG TABLET PEG SCH ×2 (09:12→20:05)
[2019-07-21] MEDS: PANTOPRAZOLE 40 MG TABLET PO SCH (09:13)
[2019-07-21] MEDS: CITALOPRAM 20 MG TABLET PO SCH (09:13)
[2019-07-21] MEDS: MORPHINE ER 30 MG TABLET PO SCH ×2 (09:13→20:04)
[2019-07-21] MEDS: TAMSULOSIN 0.4 MG CAPSULE PO SCH ×2 (09:13→20:05)
[2019-07-21] MEDS: LOSARTAN 25 MG TABLET PO SCH ×2 (09:13→20:05)
[2019-07-21] MEDS: DULoxetine 30 MG CAPSULE PO SCH ×2 (09:13→20:04)
[2019-07-21] MEDS: SUCRALFATE 1 GM/10 ML UDCUP PO SCH ×4 (09:14→20:05)
[2019-07-21] MEDS: INSULIN LISPRO 100 UNIT/ML SUBCUT SCH ×4 (09:14→20:05)
[2019-07-21] MEDS: SODIUM CHLORIDE 0.9% 1,000 ML IV SCH ×2 (11:14→17:31)
[2019-07-21] MEDS: CYCLOBENZAPRINE 10 MG TABLET PO PRN ×2 (11:15→23:24)
[2019-07-21 12:15] LABS: Apearance,Urine Slightly Hazy (Clear); Bacteria,Urine Occasional /HPF (Few); Bilirubin,Urine Negative (Negative); Blood, Urine Small mg/dL (Negative); Glucose,Urine (UA) Negative (Negative); Ketones,Urine Negative (Negative); Mucus,Urine Occasional /LPF (Occasional); Nitrite,Urine Negative (Negative); Protein,Urine 30 MG/DL; RBC,Urine 3 /HPF (0-4); Squamous Epithelial Cell,Urine Few /HPF (0-10); Urine Color Yellow (Yellow); Urine Specific Gravity 1.011 (1.001-1.035); Urine Urobilinogen < 2.0 EU/DL (0.2-1.0); WBC,Urine 4 /HPF (0-6)
[2019-07-21] MEDS: MORPHINE 4 MG/1 ML VIAL IV PRN (14:51)
[2019-07-21] MEDS: PHENAZOPYRIDINE 95 MG TABLET PO SCH (18:25)
[2019-07-21] MEDS: LEVOFLOXACIN INJ 750 MG in PREMIX 1 EACH IV SCH (20:04)
[2019-07-21] MEDS: traZODone 50 MG TABLET PO SCH (20:04)
[2019-07-21] MEDS: ENOXAPARIN 40 MG/0.4 ML SYRINGE SUBCUT SCH (20:05)
[2019-07-22] MEDS: ALBUTEROL/IPRATROPIUM 3 ML NEB RESP TX SCH ×4 (01:16→19:20)
[2019-07-22] MEDS: MEROPENEM 500 MG in SODIUM CHLORIDE 0.9% 100 ML IV SCH (06:00)
[2019-07-22] MEDS: MORPHINE 4 MG/1 ML VIAL IV PRN ×3 (06:40→15:17)
[2019-07-22] MEDS: INSULIN LISPRO 100 UNIT/ML SUBCUT SCH ×3 (11:15→19:34)
[2019-07-22] MEDS: SUCRALFATE 1 GM/10 ML UDCUP PO SCH ×3 (11:18→19:34)
[2019-07-22] MEDS: PHENAZOPYRIDINE 95 MG TABLET PO SCH ×2 (11:19→19:34)
[2019-07-22] MEDS: DUTASTERIDE 0.5 MG CAPSULE PO SCH (11:20)
[2019-07-22] MEDS: CETIRIZINE 10 MG TABLET PO SCH (11:20)
[2019-07-22] MEDS: LOSARTAN 25 MG TABLET PO SCH (11:20)
[2019-07-22] MEDS: CITALOPRAM 20 MG TABLET PO SCH (11:20)
[2019-07-22] MEDS: busPIRone 10 MG TABLET PO SCH (11:20)
[2019-07-22] MEDS: MORPHINE ER 30 MG TABLET PO SCH (11:21)
[2019-07-22] MEDS: PANTOPRAZOLE 40 MG TABLET PO SCH (11:21)
[2019-07-22] MEDS: MEGESTROL 40 MG TABLET PEG SCH (11:21)
[2019-07-22] MEDS: TAMSULOSIN 0.4 MG CAPSULE PO SCH (11:24)
[2019-07-22] MEDS: DULoxetine 30 MG CAPSULE PO SCH (11:24)
[2019-07-22] MEDS: GABAPENTIN 100 MG CAPSULE PO SCH (12:41)
[2019-07-22 21:39] VITALS: BP 119/65
[2019-07-23] MEDS: ALBUTEROL/IPRATROPIUM 3 ML NEB RESP TX SCH (02:24)
== END 2019-07-22 22:15 | disposition home health service (06) | DRG 178 ==
LOC: EDUNIT# → EDBD → N.ED 15:41 → N.EDINP 18:53 → SUATTDRO 18:53 → N.4E 19:36
PROVIDERS: ADMIT Internal Medicine; ATTEND Internal Medicine Geriatric Medicine

== ENCOUNTER 2019-08-23 12:46 | Inpatient (IN) ==
[2019-08-23] MEDS ORDERED: MORPHINE 4 MG/1 ML VIAL IV ONE (12:59)
[2019-08-23] MEDS ORDERED: SODIUM CHLORIDE 0.9% 1,000 ML IV STA ×2 (12:59→13:44)
[2019-08-23] MEDS ORDERED: ONDANSETRON 4 MG/2 ML VIAL IV ONE (12:59)
[2019-08-23] MEDS ORDERED: VANCOMYCIN INJ 1,000 MG in SODIUM CHLORIDE 0.9% 250 ML IV STA (13:43)
[2019-08-23] MEDS ORDERED: PIPERACILLIN/TAZOBACTAM 3,375 MG in SODIUM CHLORIDE 0.9% 100 ML IV STA (13:43)
[2019-08-23] MEDS ORDERED: CLINDAMYCIN INJ 600 MG in PREMIX 1 EACH IV STA (13:43)
[2019-08-23 13:44] LABS: Basophils % 0.1 % (0.0-0.8); Eosinophils % 0.1 % (0.00-10.9); Hematocrit 37.3 VOL% (42.0-52.0); Hemoglobin 11.4 GM/DL (14.0-18.0); Immature Granulocytes % 0.7 %; Lymphocytes # 0.6 10*3/uL (1.4-4.0); Mean Corpuscular HGB Conc 30.6 GM/DL (32-36); Mean Corpuscular Volume 87.6 FL (87-102); Mean Platelet Volume 13.2 FL (9.6-12.0); Monocytes % 4.5 % (1.7-12.7); Neutrophils % 90.6 % (38.7-73.9); Platelet Count 258 T/CUMM (130-400); Red Blood Count 4.26 MC/CUMM (3.8-5.5); Red Cell Distribution Width 17.4 % (9.3-17.3); White Blood Count 14.4 T/CUMM (4-12)
[2019-08-23 13:53] LABS: PT Patient Result 10.9 SECS (9.6-12.2)
[2019-08-23 14:06] LABS: Lymphocytes 8 % (20-55); Platelet Estimate Adequate; Segmented Neutrophils 88 % (50-85); Total Cells Counted 100
[2019-08-23 14:11] LABS: Alanine Aminotransferase 192 U/L (16-61); Albumin 3.1 G/DL (3.4-5.0); Alkaline Phosphatase 169 U/L (45-117); Aspartate Amino Transferase 42 U/L (0-37); Blood Urea Nitrogen 71 MG/DL (7-18); Calcium 9.8 MG/DL (8.5-10.1); Estimated Glom Filtration Rate 66 ML/MIN; Glucose 176 MG/DL (74-106); Total Protein 8.5 G/DL (6.4-8.3); Troponin I < 0.015 NG/ML (0.00-0.045)
[2019-08-23] MEDS ORDERED: ONDANSETRON 4 MG/2 ML VIAL IV PRN (15:24)
[2019-08-23] MEDS ORDERED: MAGNESIUM SULF RIDER 2 GM in PREMIX 1 EACH IV PRN (15:24)
[2019-08-23] MEDS ORDERED: DEXTROSE 50% 25 GM/50 ML VIAL IV PRN (15:24)
[2019-08-23] MEDS ORDERED: MAGNESIUM SULF RIDER 4 GM in PREMIX 1 EACH IV PRN (15:24)
[2019-08-23] MEDS ORDERED: GLUCAGON 1 MG VIAL IM PRN (15:24)
[2019-08-23] MEDS ORDERED: ALBUTEROL 2.5 MG/3 ML NEB RESP TX PRN (15:30)
[2019-08-23] MEDS ORDERED: SODIUM CHLORIDE 0.9% 1,000 ML IV SCH (16:00)
[2019-08-23] MEDS: HEPARIN 5,000 UNIT/1 ML VIAL SUBCUT SCH (19:19)
[2019-08-23] MEDS: INSULIN REGULAR 100 UNIT/ML SUBCUT SCH (19:19)
[2019-08-23] MEDS: methylPREDNISolone SOD SUC 40 MG/1 ML VIAL IV SCH (19:19)
[2019-08-23] MEDS: LEVOFLOXACIN INJ 750 MG in PREMIX 1 EACH IV SCH ×2 (19:20→21:14)
[2019-08-23] MEDS: ARFORMOTEROL 15 MCG/2 ML NEB RESP TX SCH (20:28)
[2019-08-23] MEDS: ALBUTEROL/IPRATROPIUM 3 ML NEB RESP TX SCH (20:28)
[2019-08-23] MEDS: PANTOPRAZOLE 40 MG VIAL IV SCH (21:12)
[2019-08-23] MEDS: MORPHINE 4 MG/1 ML VIAL IV PRN (21:12)
[2019-08-23] MEDS: PIPERACILLIN/TAZOBACTAM 3,375 MG in SODIUM CHLORIDE 0.9% 100 ML IV SCH (23:40)
[2019-08-24] MEDS: ALBUTEROL/IPRATROPIUM 3 ML NEB RESP TX SCH ×4 (01:15→20:47)
[2019-08-24] MEDS: INSULIN REGULAR 100 UNIT/ML SUBCUT SCH ×4 (01:42→20:48)
[2019-08-24] MEDS: HEPARIN 5,000 UNIT/1 ML VIAL SUBCUT SCH ×3 (05:20→21:08)
[2019-08-24 05:24] LABS: Hemoglobin 8.4 GM/DL (14.0-18.0); Immature Granulocytes % 0.5 %; Immature Granulocytes Absolute 0.05 #; Lymphocytes # 0.3 10*3/uL (1.4-4.0); Lymphocytes % 2.9 % (21.2-54.2); Mean Corpuscular HGB Conc 31.1 GM/DL (32-36); Mean Corpuscular Volume 85.7 FL (87-102); Mean Platelet Volume 13.1 FL (9.6-12.0); Monocytes % 1.1 % (1.7-12.7); Neutrophils % 95.5 % (38.7-73.9); Platelet Count 206 T/CUMM (130-400); Red Blood Count 3.15 MC/CUMM (3.8-5.5); Red Cell Distribution Width 17.2 % (9.3-17.3); White Blood Count 9.6 T/CUMM (4-12)
[2019-08-24 05:53] LABS: Albumin 2.1 G/DL (3.4-5.0); Bilirubin,Total 1.1 MG/DL (0.2-1.0); Calcium 8.7 MG/DL (8.5-10.1); Osmolality,Calculated 305.1 MOS/KG (273-304); Total Protein 6.3 G/DL (6.4-8.3)
[2019-08-24] MEDS ORDERED: VANCOMYCIN INJ 1,250 MG in SODIUM CHLORIDE 0.9% 250 ML IV SCH (06:00)
[2019-08-24] MEDS: PIPERACILLIN/TAZOBACTAM 3,375 MG in SODIUM CHLORIDE 0.9% 100 ML IV SCH ×3 (06:05→23:21)
[2019-08-24 06:31] LABS: Band Neutrophils 3 % (0-10); Hypochromasia 1+; Lymphocytes 2 % (20-55); Segmented Neutrophils 94 % (50-85); Total Cells Counted 100
[2019-08-24 06:32] LABS: Microcytosis 1+; Ovalocytes Slight
[2019-08-24] MEDS: ARFORMOTEROL 15 MCG/2 ML NEB RESP TX SCH ×2 (07:51→20:47)
[2019-08-24 09:39] LABS: Hepatitis B Core IgM Quant 0.26 Index; Hepatitis B Surface Ag Quant < 0.10 Index; Hepatitis B Surface Ag Result Negative (Negative)
[2019-08-24] MEDS: methylPREDNISolone SOD SUC 40 MG/1 ML VIAL IV SCH ×2 (09:55→21:06)
[2019-08-24] MEDS: PANTOPRAZOLE 40 MG VIAL IV SCH ×2 (09:56→21:06)
[2019-08-24] MEDS: NICOTINE 21 MG/24 HR PATCH TRANSDERM SCH (09:57)
[2019-08-24] MEDS ORDERED: DEXTROSE 10% 250 ML BAG IV PRN (10:32)
[2019-08-24 12:59] LABS: Apearance,Urine CLEAR (Clear); Bilirubin,Urine Negative (Negative); Blood, Urine Negative (Negative); Glucose,Urine (UA) Negative (Negative); Ketones,Urine Negative (Negative); Mucus,Urine Occasional /LPF (Occasional); Nitrite,Urine Negative (Negative); Protein,Urine 30 MG/DL; Squamous Epithelial Cell,Urine Occasional /HPF (0-10); Urine Color Yellow (Yellow); Urine Specific Gravity 1.016 (1.001-1.035); Urine Urobilinogen < 2.0 EU/DL (0.2-1.0)
[2019-08-24] MEDS ORDERED: LACTULOSE 320 GM/480 ML BOTTLE PO PRN (13:34)
[2019-08-24] MEDS: SODIUM CHLORIDE 0.9% 1,000 ML IV SCH (13:43)
[2019-08-24] MEDS ORDERED: LACTULOSE 20 GM/30 ML UDCUP PO PRN (14:00)
[2019-08-24] MEDS: MORPHINE 4 MG/1 ML VIAL IV PRN (15:56)
[2019-08-24] MEDS: VANCOMYCIN INJ 1,250 MG in SODIUM CHLORIDE 0.9% 250 ML IV SCH (18:24)
[2019-08-24] MEDS: LEVOFLOXACIN INJ 750 MG in PREMIX 1 EACH IV SCH (20:59)
[2019-08-24] MEDS ORDERED: RALTEGRAVIR 400 MG TABLET PO SCH (21:00)
[2019-08-24] MEDS: MORPHINE ER 30 MG TABLET PO SCH (21:05)
[2019-08-24] MEDS: busPIRone 10 MG TABLET PO SCH (21:05)
[2019-08-24] MEDS: TAMSULOSIN 0.4 MG CAPSULE PO SCH (21:06)
[2019-08-24] MEDS: PREGABALIN 100 MG CAPSULE PO SCH (21:06)
[2019-08-25] MEDS: ALBUTEROL/IPRATROPIUM 3 ML NEB RESP TX SCH ×4 (01:08→19:35)
[2019-08-25] MEDS: INSULIN REGULAR 100 UNIT/ML SUBCUT SCH ×4 (01:47→21:44)
[2019-08-25] MEDS: VANCOMYCIN INJ 1,250 MG in SODIUM CHLORIDE 0.9% 250 ML IV SCH ×2 (05:00→20:41)
[2019-08-25 05:35] LABS: Hematocrit 29.8 VOL% (42.0-52.0); Hemoglobin 9.1 GM/DL (14.0-18.0); Immature Granulocytes % 1.1 %; Lymphocytes # 0.3 10*3/uL (1.4-4.0); Lymphocytes % 3.7 % (21.2-54.2); Mean Corpuscular HGB Conc 30.5 GM/DL (32-36); Mean Corpuscular Volume 87.4 FL (87-102); Mean Platelet Volume 13.1 FL (9.6-12.0); Monocytes % 5.6 % (1.7-12.7); Neutrophils % 89.6 % (38.7-73.9); Platelet Count 216 T/CUMM (130-400); Red Blood Count 3.41 MC/CUMM (3.8-5.5); Red Cell Distribution Width 17.5 % (9.3-17.3); White Blood Count 8.7 T/CUMM (4-12)
[2019-08-25] MEDS: HEPARIN 5,000 UNIT/1 ML VIAL SUBCUT SCH ×3 (06:00→20:43)
[2019-08-25] MEDS: PIPERACILLIN/TAZOBACTAM 3,375 MG in SODIUM CHLORIDE 0.9% 100 ML IV SCH ×3 (06:01→23:04)
[2019-08-25 06:03] LABS: Hypochromasia 1+; Lymphocytes 6 % (20-55); Microcytosis 1+; Nucleated Red Blood Cells 1 (0-5); Ovalocytes Slight; Platelet Estimate Adequate; Segmented Neutrophils 93 % (50-85); Total Cells Counted 100
[2019-08-25 06:07] LABS: Albumin 2.2 G/DL (3.4-5.0); Bilirubin,Total 0.7 MG/DL (0.2-1.0); Calcium 9.4 MG/DL (8.5-10.1); Osmolality,Calculated 308.4 MOS/KG (273-304); Total Protein 6.7 G/DL (6.4-8.3)
[2019-08-25] MEDS: ARFORMOTEROL 15 MCG/2 ML NEB RESP TX SCH ×2 (07:00→19:34)
[2019-08-25] MEDS ORDERED: SODIUM CHLORIDE 0.9% 500 ML IV SCH (07:30)
[2019-08-25] MEDS: methylPREDNISolone SOD SUC 40 MG/1 ML VIAL IV SCH (08:46)
[2019-08-25] MEDS: MORPHINE 4 MG/1 ML VIAL IV PRN ×3 (08:47→20:40)
[2019-08-25] MEDS: PANTOPRAZOLE 40 MG VIAL IV SCH ×2 (08:49→20:42)
[2019-08-25] MEDS ORDERED: propofoL 200 MG/20 ML VIAL IV ONE (09:00)
[2019-08-25] MEDS ORDERED: LIDOCAINE 2% 5 ML VIAL ONE (09:00)
[2019-08-25] MEDS ORDERED: ETOMIDATE 20 MG/10 ML VIAL IV ONE (09:00)
[2019-08-25] MEDS: PREGABALIN 100 MG CAPSULE PO SCH ×2 (12:32→20:39)
[2019-08-25] MEDS: TAMSULOSIN 0.4 MG CAPSULE PO SCH ×2 (12:32→20:39)
[2019-08-25] MEDS: DUTASTERIDE 0.5 MG CAPSULE PO SCH (12:32)
[2019-08-25] MEDS: MORPHINE ER 30 MG TABLET PO SCH ×2 (12:32→21:46)
[2019-08-25] MEDS: CITALOPRAM 20 MG TABLET PO SCH (12:32)
[2019-08-25] MEDS: busPIRone 10 MG TABLET PO SCH ×2 (12:32→20:39)
[2019-08-25] MEDS: NICOTINE 21 MG/24 HR PATCH TRANSDERM SCH (12:35)
[2019-08-25] MEDS: SODIUM CHLORIDE 0.9% 1,000 ML IV SCH (12:36)
[2019-08-25] MEDS: SODIUM CHLORIDE 0.45% 1,000 ML IV SCH (13:42)
[2019-08-26] MEDS: ALBUTEROL/IPRATROPIUM 3 ML NEB RESP TX SCH ×4 (00:11→20:05)
[2019-08-26] MEDS: INSULIN REGULAR 100 UNIT/ML SUBCUT SCH ×4 (01:13→17:44)
[2019-08-26] MEDS: MORPHINE 4 MG/1 ML VIAL IV PRN ×3 (01:14→09:31)
[2019-08-26] MEDS: HEPARIN 5,000 UNIT/1 ML VIAL SUBCUT SCH ×3 (05:05→21:15)
[2019-08-26] MEDS: VANCOMYCIN INJ 1,250 MG in SODIUM CHLORIDE 0.9% 250 ML IV SCH (05:06)
[2019-08-26] MEDS: PIPERACILLIN/TAZOBACTAM 3,375 MG in SODIUM CHLORIDE 0.9% 100 ML IV SCH ×3 (06:23→23:17)
[2019-08-26 08:06] LABS: Basophils % 0.1 % (0.0-0.8); Hematocrit 29.7 VOL% (42.0-52.0); Hemoglobin 8.8 GM/DL (14.0-18.0); Immature Granulocytes % 1.2 %; Immature Granulocytes Absolute 0.11 #; Lymphocytes # 0.8 10*3/uL (1.4-4.0); Lymphocytes % 7.8 % (21.2-54.2); Mean Corpuscular HGB Conc 29.6 GM/DL (32-36); Mean Corpuscular Volume 89.5 FL (87-102); Mean Platelet Volume 12.7 FL (9.6-12.0); Monocytes % 8.7 % (1.7-12.7); Neutrophils % 82.2 % (38.7-73.9); Platelet Count 206 T/CUMM (130-400); Red Blood Count 3.32 MC/CUMM (3.8-5.5); Red Cell Distribution Width 17.8 % (9.3-17.3); White Blood Count 9.6 T/CUMM (4-12)
[2019-08-26 08:34] LABS: Albumin 2.2 G/DL (3.4-5.0); Bilirubin,Total 0.7 MG/DL (0.2-1.0); Calcium 9.2 MG/DL (8.5-10.1); Total Protein 6.6 G/DL (6.4-8.3)
[2019-08-26] MEDS: ARFORMOTEROL 15 MCG/2 ML NEB RESP TX SCH ×2 (08:45→20:05)
[2019-08-26] MEDS ORDERED: methylPREDNISolone SOD SUC 40 MG/1 ML VIAL IV SCH (09:00)
[2019-08-26] MEDS ORDERED: LOSARTAN 25 MG TABLET PO SCH (09:00)
[2019-08-26] MEDS: NICOTINE 21 MG/24 HR PATCH TRANSDERM SCH (09:22)
[2019-08-26] MEDS: DUTASTERIDE 0.5 MG CAPSULE PO SCH (09:22)
[2019-08-26] MEDS: MORPHINE ER 30 MG TABLET PO SCH ×3 (09:23→21:16)
[2019-08-26] MEDS: busPIRone 10 MG TABLET PO SCH ×2 (09:23→21:14)
[2019-08-26] MEDS: PREGABALIN 100 MG CAPSULE PO SCH ×2 (09:23→21:16)
[2019-08-26] MEDS: CITALOPRAM 20 MG TABLET PO SCH (09:23)
[2019-08-26] MEDS: TAMSULOSIN 0.4 MG CAPSULE PO SCH ×2 (09:23→21:15)
[2019-08-26] MEDS: PANTOPRAZOLE 40 MG VIAL IV SCH (09:24)
[2019-08-26] MEDS ORDERED: POLYETHYLENE GLYCOL POWDER 17 GM PACK PEG PRN (10:49)
[2019-08-26] MEDS ORDERED: QUETIAPINE 25 MG PEG SCH (21:00)
[2019-08-26] MEDS: SODIUM CHLORIDE 0.45% 1,000 ML IV SCH (21:15)
[2019-08-26] MEDS: FAMOTIDINE 20 MG TABLET PO SCH (21:15)
[2019-08-26] MEDS: LOSARTAN 25 MG TABLET PO SCH (21:15)
[2019-08-27] MEDS: hydrALAZINE 20 MG/1 ML VIAL IV PRN ×2 (00:49→20:09)
[2019-08-27] MEDS: ALBUTEROL/IPRATROPIUM 3 ML NEB RESP TX SCH ×4 (01:08→19:06)
[2019-08-27] MEDS: INSULIN REGULAR 100 UNIT/ML SUBCUT SCH ×4 (01:29→17:56)
[2019-08-27] MEDS: HEPARIN 5,000 UNIT/1 ML VIAL SUBCUT SCH ×3 (04:53→21:16)
[2019-08-27 05:52] LABS: Basophils % 0.2 % (0.0-0.8); Eosinophils % 0.1 % (0.00-10.9); Hematocrit 31.4 VOL% (42.0-52.0); Hemoglobin 9.6 GM/DL (14.0-18.0); Immature Granulocytes % 2.4 %; Immature Granulocytes Absolute 0.25 #; Lymphocytes % 9.6 % (21.2-54.2); Mean Corpuscular HGB Conc 30.6 GM/DL (32-36); Mean Corpuscular Volume 88.2 FL (87-102); Mean Platelet Volume 13.9 FL (9.6-12.0); NRBC # 0.02 10*3/uL; Neutrophils % 79.7 % (38.7-73.9); Platelet Count 143 T/CUMM (130-400); Red Blood Count 3.56 MC/CUMM (3.8-5.5); Red Cell Distribution Width 17.7 % (9.3-17.3); White Blood Count 10.4 T/CUMM (4-12)
[2019-08-27 06:05] LABS: Calcium 9.1 MG/DL (8.5-10.1); Osmolality,Calculated 303.6 MOS/KG (273-304)
[2019-08-27 06:08] LABS: Calcium 9.3 MG/DL (8.5-10.1); Osmolality,Calculated 302.6 MOS/KG (273-304); Prealbumin 20.6 MG/DL (20-40)
[2019-08-27 06:10] LABS: Albumin 2.3 G/DL (3.4-5.0); Bilirubin,Total 0.6 MG/DL (0.2-1.0); Calcium 9.3 MG/DL (8.5-10.1); Osmolality,Calculated 302.6 MOS/KG (273-304); Total Protein 6.5 G/DL (6.4-8.3)
[2019-08-27 06:15] LABS: Hypochromasia 1+; Ovalocytes Slight; Platelet Estimate Normal
[2019-08-27 06:16] LABS: Microcytosis Slight
[2019-08-27] MEDS: PIPERACILLIN/TAZOBACTAM 3,375 MG in SODIUM CHLORIDE 0.9% 100 ML IV SCH (06:40)
[2019-08-27] MEDS: ARFORMOTEROL 15 MCG/2 ML NEB RESP TX SCH ×2 (07:26→19:06)
[2019-08-27] MEDS: DUTASTERIDE 0.5 MG CAPSULE PO SCH (08:28)
[2019-08-27] MEDS: busPIRone 10 MG TABLET PO SCH ×2 (08:28→21:16)
[2019-08-27] MEDS: predniSONE 20 MG TABLET PEG SCH (08:28)
[2019-08-27] MEDS: FAMOTIDINE 20 MG TABLET PO SCH ×2 (08:28→21:16)
[2019-08-27] MEDS: LOSARTAN 25 MG TABLET PO SCH ×2 (08:30→21:16)
[2019-08-27] MEDS: TAMSULOSIN 0.4 MG CAPSULE PO SCH ×2 (08:30→21:16)
[2019-08-27] MEDS: CITALOPRAM 20 MG TABLET PO SCH (08:30)
[2019-08-27] MEDS: PREGABALIN 100 MG CAPSULE PO SCH ×2 (08:30→21:16)
[2019-08-27] MEDS: MORPHINE ER 30 MG TABLET PO SCH (08:31)
[2019-08-27] MEDS: NICOTINE 21 MG/24 HR PATCH TRANSDERM SCH (08:32)
[2019-08-27] MEDS ORDERED: fentaNYL 25 MCG/HR PATCH TRANSDERM SCH (10:30)
[2019-08-27] MEDS: cefTRIAXone 1,000 MG in SYRINGE 1 EACH IV SCH (11:42)
[2019-08-28] MEDS: ALBUTEROL/IPRATROPIUM 3 ML NEB RESP TX SCH ×4 (01:50→20:10)
[2019-08-28] MEDS: INSULIN REGULAR 100 UNIT/ML SUBCUT SCH ×4 (04:06→18:17)
[2019-08-28 05:03] LABS: Basophils % 0.1 % (0.0-0.8); Eosinophils % 0.3 % (0.00-10.9); Hematocrit 32.6 VOL% (42.0-52.0); Immature Granulocytes % 3.1 %; Immature Granulocytes Absolute 0.31 #; Lymphocytes # 0.9 10*3/uL (1.4-4.0); Lymphocytes % 8.5 % (21.2-54.2); Mean Corpuscular HGB Conc 30.7 GM/DL (32-36); Mean Corpuscular Volume 87.4 FL (87-102); Monocytes % 7.5 % (1.7-12.7); Neutrophils % 80.5 % (38.7-73.9); Platelet Count 189 T/CUMM (130-400); Red Blood Count 3.73 MC/CUMM (3.8-5.5); Red Cell Distribution Width 17.6 % (9.3-17.3); White Blood Count 10.1 T/CUMM (4-12)
[2019-08-28 05:19] LABS: Calcium 8.7 MG/DL (8.5-10.1); Osmolality,Calculated 291.3 MOS/KG (273-304)
[2019-08-28 05:39] LABS: Microcytosis 1+; Polychromasia Slight; Tear Drop Cells Slight
[2019-08-28 05:40] LABS: Acanthocytes Few; Hypochromasia 1+; Ovalocytes Slight
[2019-08-28 05:43] LABS: Albumin 2.2 G/DL (3.4-5.0); Bilirubin,Total 0.9 MG/DL (0.2-1.0); Calcium 8.9 MG/DL (8.5-10.1); Osmolality,Calculated 288.4 MOS/KG (273-304); Total Protein 6.4 G/DL (6.4-8.3)
[2019-08-28 05:44] LABS: Calcium 9.1 MG/DL (8.5-10.1); Osmolality,Calculated 291.3 MOS/KG (273-304); Prealbumin 22.6 MG/DL (20-40)
[2019-08-28] MEDS: HEPARIN 5,000 UNIT/1 ML VIAL SUBCUT SCH ×3 (05:58→20:59)
[2019-08-28] MEDS: ARFORMOTEROL 15 MCG/2 ML NEB RESP TX SCH ×2 (07:29→20:10)
[2019-08-28] MEDS: DUTASTERIDE 0.5 MG CAPSULE PO SCH (09:52)
[2019-08-28] MEDS: PREGABALIN 100 MG CAPSULE PO SCH ×2 (09:53→20:58)
[2019-08-28] MEDS: busPIRone 10 MG TABLET PO SCH ×2 (09:53→20:58)
[2019-08-28] MEDS: TAMSULOSIN 0.4 MG CAPSULE PO SCH ×2 (09:53→20:58)
[2019-08-28] MEDS: LOSARTAN 25 MG TABLET PO SCH ×2 (09:54→20:58)
[2019-08-28] MEDS: predniSONE 20 MG TABLET PEG SCH (09:54)
[2019-08-28] MEDS: FAMOTIDINE 20 MG TABLET PO SCH ×2 (09:54→20:58)
[2019-08-28] MEDS: CITALOPRAM 20 MG TABLET PO SCH (09:55)
[2019-08-28] MEDS: SODIUM CHLORIDE 0.45% 1,000 ML IV SCH (10:41)
[2019-08-28] MEDS: NICOTINE 21 MG/24 HR PATCH TRANSDERM SCH (11:21)
[2019-08-28] MEDS: cefTRIAXone 1,000 MG in SYRINGE 1 EACH IV SCH (11:21)
[2019-08-28] MEDS: HydrOXYzine PAMOATE 25 MG CAPSULE PO PRN ×2 (14:21→20:58)
[2019-08-29] MEDS: INSULIN REGULAR 100 UNIT/ML SUBCUT SCH ×4 (01:03→18:55)
[2019-08-29] MEDS: ALBUTEROL/IPRATROPIUM 3 ML NEB RESP TX SCH ×4 (01:32→19:45)
[2019-08-29 04:36] LABS: Basophils % 0.1 % (0.0-0.8); Eosinophils % 0.4 % (0.00-10.9); Hematocrit 31.6 VOL% (42.0-52.0); Hemoglobin 9.9 GM/DL (14.0-18.0); Immature Granulocytes % 2.8 %; Immature Granulocytes Absolute 0.28 #; Lymphocytes # 0.9 10*3/uL (1.4-4.0); Lymphocytes % 8.6 % (21.2-54.2); Mean Corpuscular HGB Conc 31.3 GM/DL (32-36); Mean Corpuscular Volume 85.2 FL (87-102); Monocytes % 6.6 % (1.7-12.7); Neutrophils % 81.5 % (38.7-73.9); Platelet Count 169 T/CUMM (130-400); Red Blood Count 3.71 MC/CUMM (3.8-5.5); Red Cell Distribution Width 17.4 % (9.3-17.3); White Blood Count 10.2 T/CUMM (4-12)
[2019-08-29 05:13] LABS: Albumin 2.3 G/DL (3.4-5.0); Calcium 8.9 MG/DL (8.5-10.1); Osmolality,Calculated 283.7 MOS/KG (273-304); Total Protein 6.4 G/DL (6.4-8.3)
[2019-08-29 05:51] LABS: Anisocytosis 1+; Hypochromasia 1+; Ovalocytes 1+
[2019-08-29 05:52] LABS: Platelet Estimate Adequate
[2019-08-29] MEDS: HEPARIN 5,000 UNIT/1 ML VIAL SUBCUT SCH (06:39)
[2019-08-29] MEDS: ARFORMOTEROL 15 MCG/2 ML NEB RESP TX SCH ×2 (07:34→19:45)
[2019-08-29] MEDS ORDERED: oxyCODONE IR 5 MG TABLET PEG PRN (09:33)
[2019-08-29] MEDS ORDERED: HydrOXYzine PAMOATE 25 MG CAPSULE PO PRN (09:33)
[2019-08-29] MEDS: TAMSULOSIN 0.4 MG CAPSULE PO SCH ×2 (10:06→20:23)
[2019-08-29] MEDS: DUTASTERIDE 0.5 MG CAPSULE PO SCH (10:06)
[2019-08-29] MEDS: PREGABALIN 100 MG CAPSULE PO SCH ×2 (10:06→20:23)
[2019-08-29] MEDS: busPIRone 10 MG TABLET PO SCH ×2 (10:06→20:23)
[2019-08-29] MEDS: predniSONE 20 MG TABLET PEG SCH (10:07)
[2019-08-29] MEDS: LOSARTAN 25 MG TABLET PO SCH ×2 (10:07→20:24)
[2019-08-29] MEDS: CITALOPRAM 20 MG TABLET PO SCH (10:08)
[2019-08-29] MEDS: NICOTINE 21 MG/24 HR PATCH TRANSDERM SCH (10:08)
[2019-08-29] MEDS: FAMOTIDINE 20 MG TABLET PO SCH ×2 (10:08→20:23)
[2019-08-29] MEDS: cefTRIAXone 1,000 MG in SYRINGE 1 EACH IV SCH (10:15)
[2019-08-29] MEDS: ENOXAPARIN 40 MG/0.4 ML SYRINGE SUBCUT SCH (12:16)
[2019-08-29] MEDS: HydrOXYzine PAMOATE 25 MG CAPSULE PO PRN ×2 (12:16→20:23)
[2019-08-29] MEDS ORDERED: MORPHINE 4 MG/1 ML VIAL IV ONE (14:57)
[2019-08-29] MEDS: oxyCODONE IR 5 MG TABLET PO PRN (20:24)
[2019-08-30] MEDS: INSULIN REGULAR 100 UNIT/ML SUBCUT SCH ×4 (00:03→19:58)
[2019-08-30] MEDS: ALBUTEROL/IPRATROPIUM 3 ML NEB RESP TX SCH ×4 (01:12→20:13)
[2019-08-30] MEDS: oxyCODONE IR 5 MG TABLET PO PRN ×5 (01:17→21:10)
[2019-08-30] MEDS: HydrOXYzine PAMOATE 25 MG CAPSULE PO PRN ×2 (05:03→21:10)
[2019-08-30] MEDS: ARFORMOTEROL 15 MCG/2 ML NEB RESP TX SCH ×2 (07:17→20:13)
[2019-08-30] MEDS: predniSONE 20 MG TABLET PEG SCH (09:04)
[2019-08-30] MEDS: FAMOTIDINE 20 MG TABLET PO SCH ×2 (09:04→21:10)
[2019-08-30] MEDS: CITALOPRAM 20 MG TABLET PO SCH (09:05)
[2019-08-30] MEDS: DUTASTERIDE 0.5 MG CAPSULE PO SCH (09:05)
[2019-08-30] MEDS: LOSARTAN 25 MG TABLET PO SCH ×2 (09:05→21:10)
[2019-08-30] MEDS: fentaNYL 50 MCG/HR PATCH TRANSDERM SCH (09:05)
[2019-08-30] MEDS: TAMSULOSIN 0.4 MG CAPSULE PO SCH ×2 (09:05→21:10)
[2019-08-30] MEDS: PREGABALIN 100 MG CAPSULE PO SCH ×2 (09:05→21:10)
[2019-08-30] MEDS: busPIRone 10 MG TABLET PO SCH ×2 (09:05→21:10)
[2019-08-30] MEDS: NICOTINE 21 MG/24 HR PATCH TRANSDERM SCH (09:06)
[2019-08-30] MEDS: cefTRIAXone 1,000 MG in SYRINGE 1 EACH IV SCH (10:20)
[2019-08-30] MEDS: ENOXAPARIN 40 MG/0.4 ML SYRINGE SUBCUT SCH (11:23)
[2019-08-31] MEDS: ALBUTEROL/IPRATROPIUM 3 ML NEB RESP TX SCH ×4 (00:09→19:15)
[2019-08-31] MEDS: oxyCODONE IR 5 MG TABLET PO PRN ×6 (00:27→22:38)
[2019-08-31] MEDS: INSULIN REGULAR 100 UNIT/ML SUBCUT SCH ×4 (01:21→19:02)
[2019-08-31] MEDS: HydrOXYzine PAMOATE 25 MG CAPSULE PO PRN (04:03)
[2019-08-31 04:09] LABS: Basophils % 0.2 % (0.0-0.8); Eosinophils # 0.1 10*3/uL (0.0-0.87); Eosinophils % 0.6 % (0.00-10.9); Hematocrit 33.1 VOL% (42.0-52.0); Hemoglobin 10.2 GM/DL (14.0-18.0); Immature Granulocytes % 3.2 %; Immature Granulocytes Absolute 0.28 #; Lymphocytes # 1.1 10*3/uL (1.4-4.0); Lymphocytes % 13.2 % (21.2-54.2); Mean Corpuscular HGB Conc 30.8 GM/DL (32-36); Mean Corpuscular Volume 86.6 FL (87-102); Monocytes % 6.2 % (1.7-12.7); Neutrophils % 76.6 % (38.7-73.9); Platelet Count 105 T/CUMM (130-400); Red Blood Count 3.82 MC/CUMM (3.8-5.5); Red Cell Distribution Width 18.2 % (9.3-17.3); White Blood Count 8.7 T/CUMM (4-12)
[2019-08-31 04:30] LABS: Hypochromasia 1+; Ovalocytes Slight; Platelet Estimate Decreased
[2019-08-31 04:31] LABS: Microcytosis Slight
[2019-08-31 04:41] LABS: Calcium 9.1 MG/DL (8.5-10.1); Prealbumin 29.1 MG/DL (20-40)
[2019-08-31] MEDS: ARFORMOTEROL 15 MCG/2 ML NEB RESP TX SCH ×2 (07:38→19:15)
[2019-08-31] MEDS: DUTASTERIDE 0.5 MG CAPSULE PO SCH (11:38)
[2019-08-31] MEDS: PREGABALIN 100 MG CAPSULE PO SCH ×2 (11:39→21:58)
[2019-08-31] MEDS: TAMSULOSIN 0.4 MG CAPSULE PO SCH ×2 (11:39→21:59)
[2019-08-31] MEDS: busPIRone 10 MG TABLET PO SCH ×2 (11:39→21:58)
[2019-08-31] MEDS: LOSARTAN 25 MG TABLET PO SCH ×2 (11:39→21:58)
[2019-08-31] MEDS: predniSONE 20 MG TABLET PEG SCH (11:39)
[2019-08-31] MEDS: CITALOPRAM 20 MG TABLET PO SCH (11:39)
[2019-08-31] MEDS: NICOTINE 21 MG/24 HR PATCH TRANSDERM SCH (11:39)
[2019-08-31] MEDS: FAMOTIDINE 20 MG TABLET PO SCH ×2 (11:39→21:59)
[2019-08-31] MEDS: cefTRIAXone 1,000 MG in SYRINGE 1 EACH IV SCH (11:40)
[2019-08-31] MEDS: ENOXAPARIN 40 MG/0.4 ML SYRINGE SUBCUT SCH (11:41)
[2019-09-01] MEDS: ALBUTEROL/IPRATROPIUM 3 ML NEB RESP TX SCH ×4 (01:32→19:53)
[2019-09-01] MEDS: oxyCODONE IR 5 MG TABLET PO PRN ×5 (02:33→22:13)
[2019-09-01] MEDS: INSULIN REGULAR 100 UNIT/ML SUBCUT SCH ×5 (04:50→18:22)
[2019-09-01] MEDS: HydrOXYzine PAMOATE 25 MG CAPSULE PO PRN ×3 (06:08→20:16)
[2019-09-01] MEDS: ARFORMOTEROL 15 MCG/2 ML NEB RESP TX SCH ×2 (07:08→19:53)
[2019-09-01] MEDS: predniSONE 20 MG TABLET PEG SCH (08:44)
[2019-09-01] MEDS: DUTASTERIDE 0.5 MG CAPSULE PO SCH (08:44)
[2019-09-01] MEDS: PREGABALIN 100 MG CAPSULE PO SCH ×2 (08:44→20:17)
[2019-09-01] MEDS: CITALOPRAM 20 MG TABLET PO SCH (08:45)
[2019-09-01] MEDS: LOSARTAN 25 MG TABLET PO SCH ×2 (08:45→20:16)
[2019-09-01] MEDS: NICOTINE 21 MG/24 HR PATCH TRANSDERM SCH (08:45)
[2019-09-01] MEDS: busPIRone 10 MG TABLET PO SCH ×2 (08:45→20:15)
[2019-09-01] MEDS: TAMSULOSIN 0.4 MG CAPSULE PO SCH ×2 (08:45→20:16)
[2019-09-01] MEDS: FAMOTIDINE 20 MG TABLET PO SCH ×2 (08:45→20:16)
[2019-09-01] MEDS: ENOXAPARIN 40 MG/0.4 ML SYRINGE SUBCUT SCH (10:16)
[2019-09-01] MEDS: cefTRIAXone 1,000 MG in SYRINGE 1 EACH IV SCH (12:10)
[2019-09-01] MEDS: DICLOFENAC 1% GEL 100 GM TUBE TOP SCH ×2 (17:44→20:15)
[2019-09-02] MEDS: ALBUTEROL/IPRATROPIUM 3 ML NEB RESP TX SCH ×4 (00:06→20:50)
[2019-09-02] MEDS: INSULIN REGULAR 100 UNIT/ML SUBCUT SCH ×4 (00:32→18:23)
[2019-09-02] MEDS: oxyCODONE IR 5 MG TABLET PO PRN ×4 (02:40→21:20)
[2019-09-02] MEDS: HydrOXYzine PAMOATE 25 MG CAPSULE PO PRN ×2 (02:40→21:19)
[2019-09-02] MEDS: ARFORMOTEROL 15 MCG/2 ML NEB RESP TX SCH ×2 (07:33→20:50)
[2019-09-02] MEDS: TAMSULOSIN 0.4 MG CAPSULE PO SCH ×2 (08:03→21:19)
[2019-09-02] MEDS: predniSONE 20 MG TABLET PEG SCH (08:03)
[2019-09-02] MEDS: LOSARTAN 25 MG TABLET PO SCH ×2 (08:05→21:19)
[2019-09-02] MEDS: DUTASTERIDE 0.5 MG CAPSULE PO SCH (08:05)
[2019-09-02] MEDS: CITALOPRAM 20 MG TABLET PO SCH (08:06)
[2019-09-02] MEDS: PREGABALIN 100 MG CAPSULE PO SCH ×2 (08:06→21:19)
[2019-09-02] MEDS: busPIRone 10 MG TABLET PO SCH ×2 (08:06→21:19)
[2019-09-02] MEDS: FAMOTIDINE 20 MG TABLET PO SCH ×2 (08:06→21:19)
[2019-09-02] MEDS: NICOTINE 21 MG/24 HR PATCH TRANSDERM SCH (08:06)
[2019-09-02] MEDS: fentaNYL 50 MCG/HR PATCH TRANSDERM SCH (08:07)
[2019-09-02] MEDS: DICLOFENAC 1% GEL 100 GM TUBE TOP SCH ×4 (08:08→21:25)
[2019-09-02] MEDS: cefTRIAXone 1,000 MG in SYRINGE 1 EACH IV SCH ×2 (08:15→10:00)
[2019-09-02] MEDS: ENOXAPARIN 40 MG/0.4 ML SYRINGE SUBCUT SCH (10:38)
[2019-09-02] MEDS ORDERED: KETOROLAC 30 MG/1 ML VIAL IM ONE (11:54)
[2019-09-03] MEDS: ALBUTEROL/IPRATROPIUM 3 ML NEB RESP TX SCH ×4 (00:31→19:35)
[2019-09-03] MEDS: INSULIN REGULAR 100 UNIT/ML SUBCUT SCH ×4 (01:15→18:12)
[2019-09-03] MEDS: oxyCODONE IR 5 MG TABLET PO PRN ×4 (04:22→21:31)
[2019-09-03] MEDS: ARFORMOTEROL 15 MCG/2 ML NEB RESP TX SCH ×2 (07:27→19:34)
[2019-09-03] MEDS: predniSONE 20 MG TABLET PEG SCH (08:59)
[2019-09-03] MEDS: FAMOTIDINE 20 MG TABLET PO SCH ×2 (09:00→21:31)
[2019-09-03] MEDS: PREGABALIN 100 MG CAPSULE PO SCH ×2 (09:00→21:32)
[2019-09-03] MEDS: LOSARTAN 25 MG TABLET PO SCH ×2 (09:00→21:30)
[2019-09-03] MEDS: busPIRone 10 MG TABLET PO SCH ×2 (09:00→21:32)
[2019-09-03] MEDS: TAMSULOSIN 0.4 MG CAPSULE PO SCH ×2 (09:00→21:32)
[2019-09-03] MEDS: DUTASTERIDE 0.5 MG CAPSULE PO SCH (09:01)
[2019-09-03] MEDS: DICLOFENAC 1% GEL 100 GM TUBE TOP SCH ×4 (09:01→21:37)
[2019-09-03] MEDS: NICOTINE 21 MG/24 HR PATCH TRANSDERM SCH (09:04)
[2019-09-03] MEDS: CITALOPRAM 20 MG TABLET PO SCH (09:04)
[2019-09-03] MEDS: cefTRIAXone 1,000 MG in SYRINGE 1 EACH IV SCH (09:53)
[2019-09-03] MEDS: ENOXAPARIN 40 MG/0.4 ML SYRINGE SUBCUT SCH (12:04)
[2019-09-03] MEDS: KETOROLAC 15 MG/1 ML VIAL IV SCH ×3 (12:04→21:32)
[2019-09-03] MEDS ORDERED: TUBERCULIN SKIN TEST 0.1 ML SYRINGE INTRADERM ONE (13:57)
[2019-09-03] MEDS: HydrOXYzine PAMOATE 25 MG CAPSULE PO PRN (21:31)
[2019-09-04] MEDS: ALBUTEROL/IPRATROPIUM 3 ML NEB RESP TX SCH ×5 (00:44→22:13)
[2019-09-04] MEDS: INSULIN REGULAR 100 UNIT/ML SUBCUT SCH ×4 (01:44→17:11)
[2019-09-04 04:29] LABS: Basophils % 0.2 % (0.0-0.8); Eosinophils % 0.3 % (0.00-10.9); Hematocrit 32.3 VOL% (42.0-52.0); Hemoglobin 10.1 GM/DL (14.0-18.0); Immature Granulocytes % 0.6 %; Immature Granulocytes Absolute 0.04 #; Lymphocytes # 0.8 10*3/uL (1.4-4.0); Lymphocytes % 12.5 % (21.2-54.2); Mean Corpuscular HGB Conc 31.3 GM/DL (32-36); Mean Corpuscular Volume 86.8 FL (87-102); Neutrophils % 80.4 % (38.7-73.9); Platelet Count 148 T/CUMM (130-400); Red Blood Count 3.72 MC/CUMM (3.8-5.5); Red Cell Distribution Width 18.6 % (9.3-17.3); White Blood Count 6.6 T/CUMM (4-12)
[2019-09-04 04:49] LABS: Hypochromasia 1+; Microcytosis Slight; Ovalocytes Slight; Platelet Estimate Adequate
[2019-09-04 04:57] LABS: Calcium 9.6 MG/DL (8.5-10.1)
[2019-09-04] MEDS: KETOROLAC 15 MG/1 ML VIAL IV SCH (05:28)
[2019-09-04] MEDS: ARFORMOTEROL 15 MCG/2 ML NEB RESP TX SCH ×3 (07:15→22:13)
[2019-09-04] MEDS: oxyCODONE IR 5 MG TABLET PO PRN ×4 (08:20→23:55)
[2019-09-04] MEDS: DUTASTERIDE 0.5 MG CAPSULE PO SCH (08:31)
[2019-09-04] MEDS: PREGABALIN 100 MG CAPSULE PO SCH ×2 (08:31→20:38)
[2019-09-04] MEDS: busPIRone 10 MG TABLET PO SCH ×2 (08:31→20:38)
[2019-09-04] MEDS: NICOTINE 21 MG/24 HR PATCH TRANSDERM SCH (08:31)
[2019-09-04] MEDS: CITALOPRAM 20 MG TABLET PO SCH (08:31)
[2019-09-04] MEDS: predniSONE 20 MG TABLET PEG SCH (08:32)
[2019-09-04] MEDS: LOSARTAN 25 MG TABLET PO SCH ×2 (08:32→20:38)
[2019-09-04] MEDS: FAMOTIDINE 20 MG TABLET PO SCH ×2 (08:32→20:38)
[2019-09-04] MEDS: TAMSULOSIN 0.4 MG CAPSULE PO SCH ×2 (08:33→20:39)
[2019-09-04] MEDS: DICLOFENAC 1% GEL 100 GM TUBE TOP SCH ×4 (08:33→20:40)
[2019-09-04] MEDS: ENOXAPARIN 40 MG/0.4 ML SYRINGE SUBCUT SCH (12:24)
[2019-09-04] MEDS: HydrOXYzine PAMOATE 25 MG CAPSULE PO PRN (20:38)
[2019-09-05] MEDS: ALBUTEROL/IPRATROPIUM 3 ML NEB RESP TX SCH ×4 (00:36→19:24)
[2019-09-05] MEDS: INSULIN REGULAR 100 UNIT/ML SUBCUT SCH ×4 (02:06→17:16)
[2019-09-05] MEDS: ARFORMOTEROL 15 MCG/2 ML NEB RESP TX SCH ×2 (07:20→19:24)
[2019-09-05] MEDS: oxyCODONE IR 5 MG TABLET PO PRN ×3 (08:32→19:08)
[2019-09-05] MEDS: fentaNYL 50 MCG/HR PATCH TRANSDERM SCH (08:35)
[2019-09-05] MEDS: NICOTINE 21 MG/24 HR PATCH TRANSDERM SCH (08:35)
[2019-09-05] MEDS: DUTASTERIDE 0.5 MG CAPSULE PO SCH (08:37)
[2019-09-05] MEDS: busPIRone 10 MG TABLET PO SCH ×2 (08:37→20:56)
[2019-09-05] MEDS: TAMSULOSIN 0.4 MG CAPSULE PO SCH ×2 (08:37→20:56)
[2019-09-05] MEDS: FAMOTIDINE 20 MG TABLET PO SCH ×2 (08:37→20:56)
[2019-09-05] MEDS: CITALOPRAM 20 MG TABLET PO SCH (08:38)
[2019-09-05] MEDS: LOSARTAN 25 MG TABLET PO SCH ×2 (08:38→20:56)
[2019-09-05] MEDS: PREGABALIN 100 MG CAPSULE PO SCH ×2 (08:39→20:56)
[2019-09-05] MEDS: DICLOFENAC 1% GEL 100 GM TUBE TOP SCH ×4 (08:39→20:56)
[2019-09-05] MEDS: predniSONE 20 MG TABLET PEG SCH (08:39)
[2019-09-05] MEDS: ENOXAPARIN 40 MG/0.4 ML SYRINGE SUBCUT SCH (11:35)
[2019-09-05] MEDS: HydrOXYzine PAMOATE 25 MG CAPSULE PO PRN (19:08)
[2019-09-06] MEDS: INSULIN REGULAR 100 UNIT/ML SUBCUT SCH ×4 (00:55→17:44)
[2019-09-06] MEDS: ALBUTEROL/IPRATROPIUM 3 ML NEB RESP TX SCH ×4 (01:39→19:35)
[2019-09-06] MEDS: ARFORMOTEROL 15 MCG/2 ML NEB RESP TX SCH ×2 (07:51→19:35)
[2019-09-06] MEDS: oxyCODONE IR 5 MG TABLET PO PRN ×3 (09:47→18:19)
[2019-09-06] MEDS: NICOTINE 21 MG/24 HR PATCH TRANSDERM SCH (09:48)
[2019-09-06] MEDS: PREGABALIN 100 MG CAPSULE PO SCH ×2 (09:48→20:56)
[2019-09-06] MEDS: predniSONE 20 MG TABLET PEG SCH (09:49)
[2019-09-06] MEDS: busPIRone 10 MG TABLET PO SCH ×2 (09:49→20:55)
[2019-09-06] MEDS: TAMSULOSIN 0.4 MG CAPSULE PO SCH ×2 (09:49→20:56)
[2019-09-06] MEDS: DUTASTERIDE 0.5 MG CAPSULE PO SCH (09:49)
[2019-09-06] MEDS: LOSARTAN 25 MG TABLET PO SCH ×2 (09:50→20:56)
[2019-09-06] MEDS: DICLOFENAC 1% GEL 100 GM TUBE TOP SCH ×4 (09:50→20:56)
[2019-09-06] MEDS: FAMOTIDINE 20 MG TABLET PO SCH ×2 (09:50→20:56)
[2019-09-06] MEDS: CITALOPRAM 20 MG TABLET PO SCH (09:50)
[2019-09-06] MEDS: ENOXAPARIN 40 MG/0.4 ML SYRINGE SUBCUT SCH (11:58)
[2019-09-07] MEDS: ALBUTEROL/IPRATROPIUM 3 ML NEB RESP TX SCH ×4 (01:00→19:45)
[2019-09-07] MEDS: INSULIN REGULAR 100 UNIT/ML SUBCUT SCH ×5 (01:26→23:47)
[2019-09-07] MEDS: oxyCODONE IR 5 MG TABLET PO PRN ×4 (04:02→21:02)
[2019-09-07] MEDS: ARFORMOTEROL 15 MCG/2 ML NEB RESP TX SCH ×2 (07:37→19:45)
[2019-09-07] MEDS: predniSONE 20 MG TABLET PEG SCH (09:09)
[2019-09-07] MEDS: LOSARTAN 25 MG TABLET PO SCH ×2 (09:09→21:03)
[2019-09-07] MEDS: PREGABALIN 100 MG CAPSULE PO SCH (09:09)
[2019-09-07] MEDS: ATAZANAVIR 300 MG PO SCH (09:10)
[2019-09-07] MEDS: busPIRone 10 MG TABLET PO SCH ×2 (09:10→21:02)
[2019-09-07] MEDS: DUTASTERIDE 0.5 MG CAPSULE PO SCH (09:10)
[2019-09-07] MEDS: CITALOPRAM 20 MG TABLET PO SCH (09:10)
[2019-09-07] MEDS: NICOTINE 21 MG/24 HR PATCH TRANSDERM SCH (09:10)
[2019-09-07] MEDS: TAMSULOSIN 0.4 MG CAPSULE PO SCH ×2 (09:10→21:02)
[2019-09-07] MEDS: FAMOTIDINE 20 MG TABLET PO SCH ×2 (09:10→21:02)
[2019-09-07] MEDS: DICLOFENAC 1% GEL 100 GM TUBE TOP SCH ×4 (09:11→21:02)
[2019-09-07] MEDS: ENOXAPARIN 40 MG/0.4 ML SYRINGE SUBCUT SCH (10:42)
[2019-09-07] MEDS: GABAPENTIN 300 MG CAPSULE PO SCH ×2 (15:02→21:03)
[2019-09-08] MEDS: ALBUTEROL/IPRATROPIUM 3 ML NEB RESP TX SCH ×4 (00:34→19:26)
[2019-09-08] MEDS: oxyCODONE IR 5 MG TABLET PO PRN ×3 (03:50→18:00)
[2019-09-08 06:04] LABS: Basophils % 0.3 % (0.0-0.8); Eosinophils % 0.5 % (0.00-10.9); Hematocrit 30.7 VOL% (42.0-52.0); Hemoglobin 9.4 GM/DL (14.0-18.0); Immature Granulocytes % 0.7 %; Immature Granulocytes Absolute 0.04 #; Lymphocytes % 16.9 % (21.2-54.2); Mean Corpuscular HGB Conc 30.6 GM/DL (32-36); Mean Corpuscular Volume 87.2 FL (87-102); Monocytes % 9.9 % (1.7-12.7); Neutrophils % 71.7 % (38.7-73.9); Platelet Count 119 T/CUMM (130-400); Red Blood Count 3.52 MC/CUMM (3.8-5.5); Red Cell Distribution Width 18.9 % (9.3-17.3); White Blood Count 5.8 T/CUMM (4-12)
[2019-09-08] MEDS: INSULIN REGULAR 100 UNIT/ML SUBCUT SCH ×3 (06:18→18:00)
[2019-09-08 06:23] LABS: Calcium 9.3 MG/DL (8.5-10.1); Osmolality,Calculated 285.7 MOS/KG (273-304)
[2019-09-08] MEDS: ARFORMOTEROL 15 MCG/2 ML NEB RESP TX SCH ×2 (07:08→19:26)
[2019-09-08] MEDS: NICOTINE 21 MG/24 HR PATCH TRANSDERM SCH (08:51)
[2019-09-08] MEDS: fentaNYL 50 MCG/HR PATCH TRANSDERM SCH (08:51)
[2019-09-08] MEDS: predniSONE 20 MG TABLET PEG SCH (08:52)
[2019-09-08] MEDS: GABAPENTIN 300 MG CAPSULE PO SCH ×3 (08:53→20:48)
[2019-09-08] MEDS: busPIRone 10 MG TABLET PO SCH ×2 (08:53→20:49)
[2019-09-08] MEDS: POLYETHYLENE GLYCOL POWDER 17 GM PACK PEG SCH (08:53)
[2019-09-08] MEDS: DUTASTERIDE 0.5 MG CAPSULE PO SCH (08:53)
[2019-09-08] MEDS: TAMSULOSIN 0.4 MG CAPSULE PO SCH ×2 (08:53→20:49)
[2019-09-08] MEDS: LOSARTAN 25 MG TABLET PO SCH ×2 (08:53→20:49)
[2019-09-08] MEDS: ATAZANAVIR 300 MG PO SCH (08:53)
[2019-09-08] MEDS: CITALOPRAM 20 MG TABLET PO SCH (08:53)
[2019-09-08] MEDS: FAMOTIDINE 20 MG TABLET PO SCH ×2 (08:53→20:49)
[2019-09-08] MEDS: DICLOFENAC 1% GEL 100 GM TUBE TOP SCH ×4 (08:54→20:49)
[2019-09-08] MEDS: ENOXAPARIN 40 MG/0.4 ML SYRINGE SUBCUT SCH (11:51)
[2019-09-09] MEDS: oxyCODONE IR 5 MG TABLET PO PRN ×4 (00:06→21:02)
[2019-09-09] MEDS: INSULIN REGULAR 100 UNIT/ML SUBCUT SCH ×4 (00:23→17:25)
[2019-09-09] MEDS: ALBUTEROL/IPRATROPIUM 3 ML NEB RESP TX SCH ×4 (00:30→19:28)
[2019-09-09] MEDS: ARFORMOTEROL 15 MCG/2 ML NEB RESP TX SCH ×2 (07:05→19:28)
[2019-09-09] MEDS: ATAZANAVIR 300 MG PO SCH (09:29)
[2019-09-09] MEDS: LOSARTAN 25 MG TABLET PO SCH ×2 (09:31→21:02)
[2019-09-09] MEDS: NICOTINE 21 MG/24 HR PATCH TRANSDERM SCH (09:31)
[2019-09-09] MEDS: DUTASTERIDE 0.5 MG CAPSULE PO SCH (09:31)
[2019-09-09] MEDS: POLYETHYLENE GLYCOL POWDER 17 GM PACK PEG SCH (09:31)
[2019-09-09] MEDS: busPIRone 10 MG TABLET PO SCH ×2 (09:31→21:02)
[2019-09-09] MEDS: FAMOTIDINE 20 MG TABLET PO SCH ×2 (09:32→21:02)
[2019-09-09] MEDS: TAMSULOSIN 0.4 MG CAPSULE PO SCH ×2 (09:32→21:02)
[2019-09-09] MEDS: predniSONE 20 MG TABLET PEG SCH (09:32)
[2019-09-09] MEDS: CITALOPRAM 20 MG TABLET PO SCH (09:32)
[2019-09-09] MEDS: GABAPENTIN 300 MG CAPSULE PO SCH ×3 (09:32→21:02)
[2019-09-09] MEDS: DICLOFENAC 1% GEL 100 GM TUBE TOP SCH ×4 (09:33→21:10)
[2019-09-09] MEDS: ENOXAPARIN 40 MG/0.4 ML SYRINGE SUBCUT SCH (11:58)
[2019-09-09] MEDS ORDERED: INFLUENZA VIRUS VACCINE 0.5 ML SYRINGE IM ONE (16:28)
[2019-09-10] MEDS: HydrOXYzine PAMOATE 25 MG CAPSULE PO PRN (00:16)
[2019-09-10] MEDS: INSULIN REGULAR 100 UNIT/ML SUBCUT SCH ×4 (00:51→17:10)
[2019-09-10] MEDS: ALBUTEROL/IPRATROPIUM 3 ML NEB RESP TX SCH ×4 (01:30→19:00)
[2019-09-10] MEDS: oxyCODONE IR 5 MG TABLET PO PRN ×4 (05:26→21:45)
[2019-09-10 06:09] LABS: Basophils % 0.2 % (0.0-0.8); Eosinophils % 0.5 % (0.00-10.9); Hematocrit 34.2 VOL% (42.0-52.0); Hemoglobin 10.5 GM/DL (14.0-18.0); Immature Granulocytes % 0.3 %; Immature Granulocytes Absolute 0.02 #; Lymphocytes # 0.8 10*3/uL (1.4-4.0); Lymphocytes % 14.2 % (21.2-54.2); Mean Corpuscular HGB Conc 30.7 GM/DL (32-36); Mean Corpuscular Volume 87.9 FL (87-102); Monocytes % 8.2 % (1.7-12.7); Neutrophils % 76.6 % (38.7-73.9); Platelet Count 129 T/CUMM (130-400); Red Blood Count 3.89 MC/CUMM (3.8-5.5); Red Cell Distribution Width 19.2 % (9.3-17.3); White Blood Count 5.8 T/CUMM (4-12)
[2019-09-10 06:32] LABS: Anisocytosis 1+; Platelet Estimate Adequate
[2019-09-10 06:33] LABS: Calcium 9.6 MG/DL (8.5-10.1); Osmolality,Calculated 285.8 MOS/KG (273-304); Poikilocytosis Slight; Prealbumin 31.5 MG/DL (20-40)
[2019-09-10 06:38] LABS: Calcium 9.4 MG/DL (8.5-10.1); Osmolality,Calculated 288.7 MOS/KG (273-304)
[2019-09-10] MEDS: ARFORMOTEROL 15 MCG/2 ML NEB RESP TX SCH ×2 (07:23→19:00)
[2019-09-10] MEDS: CITALOPRAM 20 MG TABLET PO SCH (08:47)
[2019-09-10] MEDS: busPIRone 10 MG TABLET PO SCH ×2 (08:47→21:14)
[2019-09-10] MEDS: LOSARTAN 25 MG TABLET PO SCH ×2 (08:47→21:14)
[2019-09-10] MEDS: ATAZANAVIR 300 MG PO SCH (08:47)
[2019-09-10] MEDS: DUTASTERIDE 0.5 MG CAPSULE PO SCH (08:50)
[2019-09-10] MEDS: GABAPENTIN 300 MG CAPSULE PO SCH ×3 (08:50→21:14)
[2019-09-10] MEDS: FAMOTIDINE 20 MG TABLET PO SCH ×2 (08:50→21:14)
[2019-09-10] MEDS: TAMSULOSIN 0.4 MG CAPSULE PO SCH ×2 (08:50→21:14)
[2019-09-10] MEDS: predniSONE 10 MG TABLET PEG SCH (08:50)
[2019-09-10] MEDS: NICOTINE 21 MG/24 HR PATCH TRANSDERM SCH (08:50)
[2019-09-10] MEDS: POLYETHYLENE GLYCOL POWDER 17 GM PACK PEG SCH (08:51)
[2019-09-10] MEDS: DICLOFENAC 1% GEL 100 GM TUBE TOP SCH ×4 (08:51→21:48)
[2019-09-10] MEDS: ENOXAPARIN 40 MG/0.4 ML SYRINGE SUBCUT SCH (11:41)
[2019-09-11] MEDS: ALBUTEROL/IPRATROPIUM 3 ML NEB RESP TX SCH ×3 (01:46→13:06)
[2019-09-11] MEDS: INSULIN REGULAR 100 UNIT/ML SUBCUT SCH ×3 (02:50→13:06)
[2019-09-11] MEDS: oxyCODONE IR 5 MG TABLET PO PRN (05:24)
[2019-09-11] MEDS: ARFORMOTEROL 15 MCG/2 ML NEB RESP TX SCH (07:05)
[2019-09-11] MEDS: busPIRone 10 MG TABLET PO SCH (11:46)
[2019-09-11] MEDS: CITALOPRAM 20 MG TABLET PO SCH (11:46)
[2019-09-11] MEDS: TAMSULOSIN 0.4 MG CAPSULE PO SCH (11:46)
[2019-09-11] MEDS: LOSARTAN 25 MG TABLET PO SCH (11:46)
[2019-09-11] MEDS: DUTASTERIDE 0.5 MG CAPSULE PO SCH (11:46)
[2019-09-11] MEDS: ATAZANAVIR 300 MG PO SCH (11:46)
[2019-09-11] MEDS: GABAPENTIN 300 MG CAPSULE PO SCH (11:47)
[2019-09-11] MEDS: predniSONE 10 MG TABLET PEG SCH (11:47)
[2019-09-11] MEDS: DICLOFENAC 1% GEL 100 GM TUBE TOP SCH ×2 (11:47→13:35)
[2019-09-11] MEDS: FAMOTIDINE 20 MG TABLET PO SCH (11:47)
[2019-09-11] MEDS: ENOXAPARIN 40 MG/0.4 ML SYRINGE SUBCUT SCH (11:47)
[2019-09-11] MEDS: NICOTINE 21 MG/24 HR PATCH TRANSDERM SCH (11:47)
[2019-09-11] MEDS: POLYETHYLENE GLYCOL POWDER 17 GM PACK PEG SCH (11:47)
[2019-09-11] MEDS: fentaNYL 50 MCG/HR PATCH TRANSDERM SCH (13:35)
[2019-09-11 14:39] VITALS: BP 107/70
== END 2019-09-11 15:10 | disposition home health service (06) | DRG 871 ==
LOC: EDUNIT# → EDBD → N.ED 12:46 → N.EDINP 15:26 → SUATTDRO 15:26 → N.4E 15:57
PROVIDERS: ADMIT Internal Medicine; ATTEND Family Medicine
PROC: EGDWPEG (ICD-10-PCS; 2019-08-25 11:05)

== ENCOUNTER 2020-03-26 19:41 | Inpatient (IN) ==
[2020-03-26 20:25] LABS: Basophils % 0.3 % (0.0-0.8); Eosinophils % 0.2 % (0.00-10.9); Hematocrit 40.3 VOL% (42.0-52.0); Hemoglobin 13.3 GM/DL (14.0-18.0); Immature Granulocytes % 2.5 %; Immature Granulocytes Absolute 0.22 #; Lymphocytes # 1.1 10*3/uL (1.4-4.0); Lymphocytes % 12.7 % (21.2-54.2); Mean Corpuscular Volume 86.9 FL (87-102); Monocytes % 5.6 % (1.7-12.7); Neutrophils % 78.7 % (38.7-73.9); Platelet Count 148 T/CUMM (130-400); Red Blood Count 4.64 MC/CUMM (3.8-5.5); Red Cell Distribution Width 17.5 % (9.3-17.3); White Blood Count 8.9 T/CUMM (4-12)
[2020-03-26 20:34] LABS: INR 1.2; PT Patient Result 12.5 SECS (9.8-11.9)
[2020-03-26 20:46] LABS: Alanine Aminotransferase 83 U/L (16-61); Albumin 2.4 G/DL (3.4-5.0); Alkaline Phosphatase 115 U/L (45-117); Aspartate Amino Transferase 56 U/L (0-37); Blood Urea Nitrogen 70 MG/DL (7-18); CKMB % 2.9 %; Calcium 9.6 MG/DL (8.5-10.1); Glucose 125 MG/DL (74-106); Osmolality,Calculated 289.2 MOS/KG (273-304); Total Protein 8.5 G/DL (6.4-8.3); Troponin I < 0.015 NG/ML (0.00-0.045)
[2020-03-26 20:52] LABS: Estimated Glom Filtration Rate 0 ML/MIN
[2020-03-26] MEDS ORDERED: SODIUM CHLORIDE 0.9% 1,000 ML IV STA (21:05)
[2020-03-26] MEDS ORDERED: VANCOMYCIN INJ 1,000 MG in SODIUM CHLORIDE 0.9% 250 ML IV STA (21:05)
[2020-03-26] MEDS ORDERED: PIPERACILLIN/TAZOBACTAM 3,375 MG in SODIUM CHLORIDE 0.9% 100 ML IV STA (21:05)
[2020-03-26 21:11] LABS: Band Neutrophils 1 % (0-10); Lymphocytes 20 % (20-55); Segmented Neutrophils 73 % (50-85); Total Cells Counted 100
[2020-03-26 21:13] LABS: Platelet Estimate Adequate
[2020-03-26] MEDS ORDERED: MORPHINE 4 MG/1 ML VIAL IV ONE (21:17)
[2020-03-26] MEDS ORDERED: GLUCAGON 1 MG VIAL IM PRN (22:58)
[2020-03-26] MEDS ORDERED: LACTULOSE 20 GM/30 ML UDCUP PO PRN (22:58)
[2020-03-26] MEDS ORDERED: DEXTROSE 50% 25 GM/50 ML VIAL IV PRN (22:58)
[2020-03-26] MEDS ORDERED: ONDANSETRON 4 MG/2 ML VIAL IV PRN (22:58)
[2020-03-26] MEDS ORDERED: ACETAMINOPHEN 325 MG TABLET PO PRN (22:58)
[2020-03-26] MEDS ORDERED: AZITHROMYCIN INJ 500 MG in SODIUM CHLORIDE 0.9% 250 ML IV SCH (23:00)
[2020-03-26] MEDS ORDERED: FLUTICASONE 50 MCG NASAL SPRAY 16 GM BOTTLE BOTH NARES PRN (23:28)
[2020-03-26] MEDS ORDERED: LACTULOSE 20 GM/30 ML UDCUP PEG PRN (23:28)
[2020-03-26] MEDS ORDERED: POLYETHYLENE GLYCOL POWDER 17 GM PACK PO PRN (23:28)
[2020-03-27] MEDS: ALBUTEROL/IPRATROPIUM 3 ML NEB RESP TX SCH ×4 (00:36→19:54)
[2020-03-27] MEDS: methylPREDNISolone SOD SUC 40 MG/1 ML VIAL IV SCH ×2 (00:52→11:35)
[2020-03-27] MEDS: FAMOTIDINE 20 MG TABLET PO SCH ×3 (01:04→21:18)
[2020-03-27] MEDS: ZALEPLON 5 MG CAPSULE PO SCH ×2 (01:04→21:17)
[2020-03-27] MEDS: OXYBUTYNIN 5 MG TABLET PO SCH ×3 (01:04→21:17)
[2020-03-27] MEDS: TAMSULOSIN 0.4 MG CAPSULE PO SCH ×3 (01:04→21:20)
[2020-03-27] MEDS: RALTEGRAVIR 400 MG TABLET PO SCH ×3 (01:04→22:07)
[2020-03-27] MEDS: AZITHROMYCIN 250 MG TABLET PO SCH ×2 (01:47→21:22)
[2020-03-27] MEDS: APIXABAN 5 MG TABLET PO SCH ×3 (01:47→21:18)
[2020-03-27] MEDS: cefTRIAXone 2,000 MG in SODIUM CHLORIDE 0.9% 100 ML IV SCH (05:32)
[2020-03-27 06:06] LABS: Basophils % 0.3 % (0.0-0.8); Hematocrit 34.6 VOL% (42.0-52.0); Hemoglobin 11.5 GM/DL (14.0-18.0); Immature Granulocytes % 2.9 %; Lymphocytes # 0.2 10*3/uL (1.4-4.0); Lymphocytes % 3.2 % (21.2-54.2); Mean Corpuscular HGB Conc 33.2 GM/DL (32-36); Mean Corpuscular Volume 85.9 FL (87-102); Mean Platelet Volume 13.7 FL (9.6-12.0); Monocytes % 0.6 % (1.7-12.7); Platelet Count 123 T/CUMM (130-400); Red Blood Count 4.03 MC/CUMM (3.8-5.5); Red Cell Distribution Width 17.2 % (9.3-17.3); White Blood Count 6.9 T/CUMM (4-12)
[2020-03-27 06:53] LABS: Albumin 2.2 G/DL (3.4-5.0); Bilirubin,Total 1.5 MG/DL (0.2-1.0); Calcium 8.9 MG/DL (8.5-10.1); Osmolality,Calculated 300.5 MOS/KG (273-304); Total Protein 7.4 G/DL (6.4-8.3)
[2020-03-27] MEDS: MEGESTROL 40 MG TABLET PO SCH (09:01)
[2020-03-27] MEDS: LISINOPRIL/HCTZ 20-25 MG TABLET PO SCH (09:01)
[2020-03-27] MEDS: RILPIVIRINE 25 MG PEG SCH (09:02)
[2020-03-27] MEDS: Ritonavir [Norvir] 100 MG PEG SCH (09:02)
[2020-03-27] MEDS: INSULIN LISPRO 100 UNIT/ML SUBCUT SCH ×4 (09:02→21:16)
[2020-03-27] MEDS: PREGABALIN 100 MG CAPSULE PO SCH ×3 (09:09→21:19)
[2020-03-27] MEDS: ATAZANAVIR 300 MG PO SCH (09:09)
[2020-03-27] MEDS: GABAPENTIN 300 MG CAPSULE PO SCH ×3 (09:09→21:17)
[2020-03-27 10:11] LABS: ABG Base Excess -4.3 MMOL/L (-2.5-2.5); ABG HCO3 20.8 MMOL/L (20-26); ABG PCO2 27.3 MM HG (35-48); ABG PH 7.438 (7.35-7.45); ABG PO2 81.6 MM HG (80-95); ABG TCO2 16.1 MMOL/L (23-27); Allen Test Positive
[2020-03-27] MEDS: FLUTICASONE/SALMETEROL 250-50 DISKUS 14 DOSE INH SCH ×2 (11:34→22:07)
[2020-03-27 12:05] LABS: Band Neutrophils 1 % (0-10); Hypochromasia 2+; Lymphocytes 1 % (20-55); Microcytosis 1+; Myelocytes 1 %; Polychromasia Slight; Segmented Neutrophils 96 % (50-85); Total Cells Counted 100
[2020-03-27 12:06] LABS: Atypical Lymphocytes Few; Ovalocytes Few; Platelet Estimate Adequate
[2020-03-27] MEDS: SULFAMETHOX/TRIMETHOPRIM 800-160 MG TABLET PO SCH (21:19)
[2020-03-28] MEDS: methylPREDNISolone SOD SUC 40 MG/1 ML VIAL IV SCH ×3 (00:09→23:31)
[2020-03-28] MEDS: ALBUTEROL/IPRATROPIUM 3 ML NEB RESP TX SCH ×4 (01:07→19:48)
[2020-03-28] MEDS: cefTRIAXone 2,000 MG in SODIUM CHLORIDE 0.9% 100 ML IV SCH (05:46)
[2020-03-28 06:59] LABS: Basophils % 0.2 % (0.0-0.8); Hematocrit 35.2 VOL% (42.0-52.0); Hemoglobin 11.7 GM/DL (14.0-18.0); Immature Granulocytes % 1.7 %; Immature Granulocytes Absolute 0.18 #; Lymphocytes # 0.4 10*3/uL (1.4-4.0); Lymphocytes % 3.4 % (21.2-54.2); Mean Corpuscular HGB Conc 33.2 GM/DL (32-36); Mean Corpuscular Volume 86.1 FL (87-102); Mean Platelet Volume 13.8 FL (9.6-12.0); Monocytes % 0.9 % (1.7-12.7); Neutrophils % 93.8 % (38.7-73.9); Platelet Count 129 T/CUMM (130-400); Red Blood Count 4.09 MC/CUMM (3.8-5.5); Red Cell Distribution Width 17.2 % (9.3-17.3); White Blood Count 10.5 T/CUMM (4-12)
[2020-03-28 07:15] LABS: Calcium 9.1 MG/DL (8.5-10.1); Osmolality,Calculated 311.4 MOS/KG (273-304)
[2020-03-28 07:20] LABS: Albumin 2.3 G/DL (3.4-5.0); Bilirubin,Total 0.7 MG/DL (0.2-1.0); Calcium 9.4 MG/DL (8.5-10.1); Osmolality,Calculated 307.5 MOS/KG (273-304); Total Protein 7.5 G/DL (6.4-8.3)
[2020-03-28 07:22] LABS: Hypochromasia 1+; Lymphocytes 6 % (20-55); Platelet Estimate Normal; Segmented Neutrophils 93 % (50-85); Total Cells Counted 100
[2020-03-28 07:23] LABS: Microcytosis Slight; Ovalocytes Slight
[2020-03-28] MEDS: RALTEGRAVIR 400 MG TABLET PO SCH ×2 (08:28→20:16)
[2020-03-28] MEDS: OXYBUTYNIN 5 MG TABLET PO SCH ×2 (08:28→20:16)
[2020-03-28] MEDS: FLUTICASONE/SALMETEROL 250-50 DISKUS 14 DOSE INH SCH ×2 (08:29→20:17)
[2020-03-28] MEDS: PREGABALIN 100 MG CAPSULE PO SCH ×3 (08:30→20:16)
[2020-03-28] MEDS: TAMSULOSIN 0.4 MG CAPSULE PO SCH ×2 (08:30→20:16)
[2020-03-28] MEDS: APIXABAN 5 MG TABLET PO SCH (08:31)
[2020-03-28] MEDS: SULFAMETHOX/TRIMETHOPRIM 800-160 MG TABLET PO SCH ×2 (08:31→20:16)
[2020-03-28] MEDS: FAMOTIDINE 20 MG TABLET PO SCH ×2 (08:31→20:16)
[2020-03-28] MEDS: MEGESTROL 40 MG TABLET PO SCH (08:31)
[2020-03-28] MEDS: LISINOPRIL/HCTZ 20-25 MG TABLET PO SCH (08:31)
[2020-03-28] MEDS: GABAPENTIN 300 MG CAPSULE PO SCH ×3 (08:32→20:16)
[2020-03-28] MEDS: Ritonavir [Norvir] 100 MG PEG SCH (08:33)
[2020-03-28] MEDS: RILPIVIRINE 25 MG PEG SCH (08:34)
[2020-03-28] MEDS: ATAZANAVIR 300 MG PO SCH (08:35)
[2020-03-28] MEDS: INSULIN LISPRO 100 UNIT/ML SUBCUT SCH ×4 (09:48→20:45)
[2020-03-28] MEDS ORDERED: ALBUTEROL 2.5 MG/3 ML NEB RESP TX PRN (14:49)
[2020-03-28] MEDS: MELATONIN 3 MG TABLET PO PRN (20:15)
[2020-03-28] MEDS: ZALEPLON 5 MG CAPSULE PO SCH (20:16)
[2020-03-28] MEDS: AZITHROMYCIN 250 MG TABLET PO SCH (20:16)
[2020-03-29] MEDS: ALBUTEROL/IPRATROPIUM 3 ML NEB RESP TX SCH ×4 (01:00→18:57)
[2020-03-29] MEDS: cefTRIAXone 2,000 MG in SODIUM CHLORIDE 0.9% 100 ML IV SCH (05:44)
[2020-03-29 05:59] LABS: Calcium 9.4 MG/DL (8.5-10.1); Calcium 9.7 MG/DL (8.5-10.1); Osmolality,Calculated 307.1 MOS/KG (273-304); Osmolality,Calculated 310.1 MOS/KG (273-304)
[2020-03-29] MEDS: FLUoxetine 20 MG CAPSULE PO SCH (08:52)
[2020-03-29] MEDS: TAMSULOSIN 0.4 MG CAPSULE PO SCH ×2 (08:52→20:58)
[2020-03-29] MEDS: ATAZANAVIR 300 MG PO SCH (08:53)
[2020-03-29] MEDS: RILPIVIRINE 25 MG PEG SCH (08:53)
[2020-03-29] MEDS: Ritonavir [Norvir] 100 MG PEG SCH (08:53)
[2020-03-29] MEDS: INSULIN LISPRO 100 UNIT/ML SUBCUT SCH ×4 (08:53→23:12)
[2020-03-29] MEDS: MEGESTROL 40 MG TABLET PO SCH (08:54)
[2020-03-29] MEDS: FAMOTIDINE 20 MG TABLET PO SCH ×2 (08:54→20:57)
[2020-03-29] MEDS: RALTEGRAVIR 400 MG TABLET PO SCH ×2 (08:55→21:15)
[2020-03-29] MEDS: GABAPENTIN 300 MG CAPSULE PO SCH ×3 (08:55→20:57)
[2020-03-29] MEDS: PREGABALIN 100 MG CAPSULE PO SCH ×3 (08:55→20:58)
[2020-03-29] MEDS: SULFAMETHOX/TRIMETHOPRIM 800-160 MG TABLET PO SCH ×2 (08:55→20:57)
[2020-03-29] MEDS: OXYBUTYNIN 5 MG TABLET PO SCH ×2 (08:55→20:58)
[2020-03-29] MEDS: FLUTICASONE/SALMETEROL 250-50 DISKUS 14 DOSE INH SCH ×2 (08:58→20:58)
[2020-03-29] MEDS: methylPREDNISolone SOD SUC 40 MG/1 ML VIAL IV SCH ×2 (12:40→23:47)
[2020-03-29] MEDS: PIPERACILLIN/TAZOBACTAM 3,375 MG in SODIUM CHLORIDE 0.9% 100 ML IV SCH ×2 (12:41→20:50)
[2020-03-29] MEDS: MELATONIN 3 MG TABLET PO PRN (20:57)
[2020-03-29] MEDS: ZALEPLON 5 MG CAPSULE PO SCH (20:57)
[2020-03-29] MEDS: AZITHROMYCIN 250 MG TABLET PO SCH (20:57)
[2020-03-29 21:56] LABS: % CD4 (T Cells) 31 % (32-64); % CD8 (T Cells) 42 % (8-40); 4/8 Ratio 0.7 (>=0.9)
[2020-03-29 22:38] LABS: Calcium 9.4 MG/DL (8.5-10.1)
[2020-03-30] MEDS: ALBUTEROL/IPRATROPIUM 3 ML NEB RESP TX SCH ×4 (00:24→19:50)
[2020-03-30] MEDS: PIPERACILLIN/TAZOBACTAM 3,375 MG in SODIUM CHLORIDE 0.9% 100 ML IV SCH ×3 (03:02→20:03)
[2020-03-30 06:25] LABS: Calcium 9.2 MG/DL (8.5-10.1); Osmolality,Calculated 306.2 MOS/KG (273-304)
[2020-03-30 06:35] LABS: Basophils % 0.3 % (0.0-0.8); Hematocrit 35.1 VOL% (42.0-52.0); Immature Granulocytes % 4.4 %; Immature Granulocytes Absolute 0.43 #; Lymphocytes # 0.3 10*3/uL (1.4-4.0); Lymphocytes % 3.5 % (21.2-54.2); Mean Corpuscular HGB Conc 34.2 GM/DL (32-36); Mean Corpuscular Volume 84.8 FL (87-102); Monocytes % 4.4 % (1.7-12.7); Neutrophils % 87.4 % (38.7-73.9); Platelet Count 130 T/CUMM (130-400); Red Blood Count 4.14 MC/CUMM (3.8-5.5); White Blood Count 9.7 T/CUMM (4-12)
[2020-03-30 07:09] LABS: Hypochromasia 1+; Lymphocytes 4 % (20-55); Microcytosis 1+; Platelet Estimate Normal; Segmented Neutrophils 94 % (50-85); Total Cells Counted 100
[2020-03-30] MEDS: INSULIN LISPRO 100 UNIT/ML SUBCUT SCH ×4 (09:08→21:33)
[2020-03-30] MEDS: MEGESTROL 40 MG TABLET PO SCH (09:09)
[2020-03-30] MEDS: FLUoxetine 20 MG CAPSULE PO SCH (09:10)
[2020-03-30] MEDS: TAMSULOSIN 0.4 MG CAPSULE PO SCH ×2 (09:10→20:05)
[2020-03-30] MEDS: FAMOTIDINE 20 MG TABLET PO SCH ×2 (09:10→20:08)
[2020-03-30] MEDS: SULFAMETHOX/TRIMETHOPRIM 800-160 MG TABLET PO SCH ×2 (09:10→20:05)
[2020-03-30] MEDS: OXYBUTYNIN 5 MG TABLET PO SCH ×2 (09:10→20:06)
[2020-03-30] MEDS: RALTEGRAVIR 400 MG TABLET PO SCH ×2 (09:10→20:04)
[2020-03-30] MEDS: PREGABALIN 100 MG CAPSULE PO SCH ×3 (09:11→20:07)
[2020-03-30] MEDS: GABAPENTIN 300 MG CAPSULE PO SCH ×3 (09:11→20:05)
[2020-03-30] MEDS: ATAZANAVIR 300 MG PO SCH (09:12)
[2020-03-30] MEDS: RILPIVIRINE 25 MG PEG SCH (09:12)
[2020-03-30] MEDS: Ritonavir [Norvir] 100 MG PEG SCH (09:12)
[2020-03-30] MEDS: FLUTICASONE/SALMETEROL 250-50 DISKUS 14 DOSE INH SCH ×2 (09:29→20:08)
[2020-03-30] MEDS: methylPREDNISolone SOD SUC 40 MG/1 ML VIAL IV SCH ×2 (11:36→22:37)
[2020-03-30] MEDS: SODIUM CHLORIDE 0.9% 1,000 ML IV SCH ×3 (15:25→22:36)
[2020-03-30] MEDS: MELATONIN 3 MG TABLET PO PRN (20:05)
[2020-03-30] MEDS: ZALEPLON 5 MG CAPSULE PO SCH (20:05)
[2020-03-30] MEDS: AZITHROMYCIN 250 MG TABLET PO SCH (20:05)
[2020-03-31] MEDS: ALBUTEROL/IPRATROPIUM 3 ML NEB RESP TX SCH ×4 (01:10→19:09)
[2020-03-31] MEDS: PIPERACILLIN/TAZOBACTAM 3,375 MG in SODIUM CHLORIDE 0.9% 100 ML IV SCH ×3 (03:03→21:02)
[2020-03-31 06:42] LABS: Basophils % 0.3 % (0.0-0.8); Hematocrit 37.9 VOL% (42.0-52.0); Hemoglobin 12.8 GM/DL (14.0-18.0); Immature Granulocytes % 5.4 %; Immature Granulocytes Absolute 0.51 #; Lymphocytes # 0.4 10*3/uL (1.4-4.0); Lymphocytes % 4.6 % (21.2-54.2); Mean Corpuscular HGB Conc 33.8 GM/DL (32-36); Mean Corpuscular Volume 86.1 FL (87-102); Monocytes % 3.7 % (1.7-12.7); Platelet Count 135 T/CUMM (130-400); Red Cell Distribution Width 16.8 % (9.3-17.3); White Blood Count 9.5 T/CUMM (4-12)
[2020-03-31 06:58] LABS: Albumin 2.4 G/DL (3.4-5.0); Bilirubin,Total 0.8 MG/DL (0.2-1.0); Calcium 9.4 MG/DL (8.5-10.1); Total Protein 7.1 G/DL (6.4-8.3)
[2020-03-31 07:09] LABS: Hypochromasia 1+; Lymphocytes 6 % (20-55); Microcytosis 1+; Platelet Estimate Normal; Segmented Neutrophils 90 % (50-85); Total Cells Counted 100
[2020-03-31] MEDS ORDERED: LACTATED RINGERS 1,000 ML IV SCH (08:00)
[2020-03-31] MEDS ORDERED: LIDOCAINE 2% 5 ML VIAL ONE (10:00)
[2020-03-31] MEDS ORDERED: propofoL 200 MG/20 ML VIAL IV ONE (10:00)
[2020-03-31] MEDS: INSULIN LISPRO 100 UNIT/ML SUBCUT SCH ×4 (13:53→21:01)
[2020-03-31] MEDS: GABAPENTIN 300 MG CAPSULE PO SCH ×3 (14:17→21:00)
[2020-03-31] MEDS: methylPREDNISolone SOD SUC 40 MG/1 ML VIAL IV SCH ×2 (14:17→21:07)
[2020-03-31] MEDS: FLUoxetine 20 MG CAPSULE PO SCH (14:17)
[2020-03-31] MEDS: MEGESTROL 40 MG TABLET PO SCH (14:17)
[2020-03-31] MEDS: SULFAMETHOX/TRIMETHOPRIM 800-160 MG TABLET PO SCH ×2 (14:17→20:59)
[2020-03-31] MEDS: FAMOTIDINE 20 MG TABLET PO SCH ×2 (14:18→21:00)
[2020-03-31] MEDS: PREGABALIN 100 MG CAPSULE PO SCH ×3 (14:18→21:00)
[2020-03-31] MEDS: OXYBUTYNIN 5 MG TABLET PO SCH ×2 (14:18→21:01)
[2020-03-31] MEDS: TAMSULOSIN 0.4 MG CAPSULE PO SCH ×2 (14:18→21:00)
[2020-03-31] MEDS: ATAZANAVIR 300 MG PO SCH (14:19)
[2020-03-31] MEDS: FLUTICASONE/SALMETEROL 250-50 DISKUS 14 DOSE INH SCH ×2 (14:19→21:02)
[2020-03-31] MEDS: RALTEGRAVIR 400 MG TABLET PO SCH ×2 (14:20→21:03)
[2020-03-31] MEDS: RILPIVIRINE 25 MG PEG SCH (14:21)
[2020-03-31] MEDS: Ritonavir [Norvir] 100 MG PEG SCH (14:21)
[2020-03-31] MEDS: CLOTRIMAZOLE 10 MG TROCHE PO SCH ×3 (14:45→20:59)
[2020-03-31] MEDS: AZITHROMYCIN 250 MG TABLET PO SCH (20:59)
[2020-03-31] MEDS: MELATONIN 3 MG TABLET PO PRN (21:00)
[2020-03-31] MEDS: ZALEPLON 5 MG CAPSULE PO SCH (21:00)
[2020-04-01] MEDS: ALBUTEROL/IPRATROPIUM 3 ML NEB RESP TX SCH ×4 (01:02→19:40)
[2020-04-01] MEDS: PIPERACILLIN/TAZOBACTAM 3,375 MG in SODIUM CHLORIDE 0.9% 100 ML IV SCH ×3 (03:02→20:46)
[2020-04-01] MEDS: CLOTRIMAZOLE 10 MG TROCHE PO SCH ×6 (05:00→21:36)
[2020-04-01 05:49] LABS: Basophils % 0.5 % (0.0-0.8); Hematocrit 38.6 VOL% (42.0-52.0); Immature Granulocytes % 5.9 %; Lymphocytes # 0.3 10*3/uL (1.4-4.0); Mean Corpuscular HGB Conc 33.7 GM/DL (32-36); Mean Corpuscular Volume 84.8 FL (87-102); Mean Platelet Volume 12.8 FL (9.6-12.0); Monocytes % 3.3 % (1.7-12.7); Neutrophils % 86.3 % (38.7-73.9); Platelet Count 131 T/CUMM (130-400); Red Blood Count 4.55 MC/CUMM (3.8-5.5); Red Cell Distribution Width 16.8 % (9.3-17.3); White Blood Count 8.5 T/CUMM (4-12)
[2020-04-01 06:02] LABS: Osmolality,Calculated 313.7 MOS/KG (273-304)
[2020-04-01 06:14] LABS: Hypochromasia 1+; Lymphocytes 4 % (20-55); Microcytosis 1+; Myelocytes 1 %; Ovalocytes Slight; Platelet Estimate Adequate; Segmented Neutrophils 93 % (50-85); Total Cells Counted 100
[2020-04-01 06:15] LABS: Tear Drop Cells Slight
[2020-04-01] MEDS ORDERED: INSULIN REGULAR 100 UNIT/ML IV ONE (08:33)
[2020-04-01] MEDS ORDERED: DEXTROSE 50% 25 GM/50 ML VIAL IV ONE (08:33)
[2020-04-01] MEDS ORDERED: CALCIUM GLUCONATE 1,000 MG in SODIUM CHLORIDE 0.9% 100 ML IV ONE (08:34)
[2020-04-01] MEDS: INSULIN LISPRO 100 UNIT/ML SUBCUT SCH ×4 (08:54→20:48)
[2020-04-01] MEDS: MEGESTROL 40 MG TABLET PO SCH (08:55)
[2020-04-01] MEDS: OXYBUTYNIN 5 MG TABLET PO SCH ×2 (08:56→20:44)
[2020-04-01] MEDS: TAMSULOSIN 0.4 MG CAPSULE PO SCH ×2 (08:56→20:44)
[2020-04-01] MEDS: SULFAMETHOX/TRIMETHOPRIM 800-160 MG TABLET PO SCH ×2 (08:56→20:44)
[2020-04-01] MEDS: PREGABALIN 100 MG CAPSULE PO SCH ×3 (08:56→20:44)
[2020-04-01] MEDS: FLUoxetine 20 MG CAPSULE PO SCH (08:56)
[2020-04-01] MEDS: GABAPENTIN 300 MG CAPSULE PO SCH ×3 (08:57→20:45)
[2020-04-01] MEDS: FAMOTIDINE 20 MG TABLET PO SCH ×2 (08:57→20:44)
[2020-04-01] MEDS: FLUTICASONE/SALMETEROL 250-50 DISKUS 14 DOSE INH SCH ×2 (08:57→20:46)
[2020-04-01] MEDS ORDERED: methylPREDNISolone SOD SUC 40 MG/1 ML VIAL IV SCH (09:00)
[2020-04-01] MEDS: Ritonavir [Norvir] 100 MG PEG SCH (09:19)
[2020-04-01] MEDS: ATAZANAVIR 300 MG PO SCH (09:19)
[2020-04-01] MEDS: RILPIVIRINE 25 MG PEG SCH (09:19)
[2020-04-01] MEDS: RALTEGRAVIR 400 MG TABLET PO SCH ×2 (09:30→20:48)
[2020-04-01] MEDS: NYSTATIN 500,000 UNIT/5 ML UDCUP SWISH/SWAL SCH ×3 (13:56→20:45)
[2020-04-01] MEDS ORDERED: SODIUM POLYSTYRENE SULFATE 15 GM/60 ML BOTTLE PO ONE (14:15)
[2020-04-01] MEDS: MELATONIN 3 MG TABLET PO PRN (20:44)
[2020-04-01] MEDS: ZALEPLON 5 MG CAPSULE PO SCH (20:44)
[2020-04-01] MEDS: AZITHROMYCIN 250 MG TABLET PO SCH (20:44)
[2020-04-02] MEDS: ALBUTEROL/IPRATROPIUM 3 ML NEB RESP TX SCH ×5 (00:05→19:54)
[2020-04-02] MEDS: PIPERACILLIN/TAZOBACTAM 3,375 MG in SODIUM CHLORIDE 0.9% 100 ML IV SCH ×3 (02:30→20:15)
[2020-04-02] MEDS: CLOTRIMAZOLE 10 MG TROCHE PO SCH ×6 (05:27→22:11)
[2020-04-02 05:58] LABS: Calcium 8.7 MG/DL (8.5-10.1); Osmolality,Calculated 306.1 MOS/KG (273-304)
[2020-04-02] MEDS: FLUTICASONE/SALMETEROL 250-50 DISKUS 14 DOSE INH SCH ×2 (09:00→20:15)
[2020-04-02] MEDS: NYSTATIN 500,000 UNIT/5 ML UDCUP SWISH/SWAL SCH ×4 (09:01→20:38)
[2020-04-02] MEDS: FLUoxetine 20 MG CAPSULE PO SCH (09:02)
[2020-04-02] MEDS: MEGESTROL 40 MG TABLET PO SCH (09:03)
[2020-04-02] MEDS: SULFAMETHOX/TRIMETHOPRIM 800-160 MG TABLET PO SCH (09:03)
[2020-04-02] MEDS: TAMSULOSIN 0.4 MG CAPSULE PO SCH ×2 (09:03→20:13)
[2020-04-02] MEDS: OXYBUTYNIN 5 MG TABLET PO SCH ×2 (09:04→20:13)
[2020-04-02] MEDS: PREGABALIN 100 MG CAPSULE PO SCH ×3 (09:05→20:13)
[2020-04-02] MEDS: GABAPENTIN 300 MG CAPSULE PO SCH ×3 (09:05→20:13)
[2020-04-02] MEDS: FAMOTIDINE 20 MG TABLET PO SCH ×2 (09:06→20:14)
[2020-04-02] MEDS: ATAZANAVIR 300 MG PO SCH (09:07)
[2020-04-02] MEDS: Ritonavir [Norvir] 100 MG PEG SCH (09:09)
[2020-04-02] MEDS: RALTEGRAVIR 400 MG TABLET PO SCH ×2 (09:20→20:38)
[2020-04-02] MEDS: RILPIVIRINE 25 MG PEG SCH (09:21)
[2020-04-02] MEDS: predniSONE 20 MG TABLET PO SCH (09:30)
[2020-04-02] MEDS: lisinopriL 10 MG TABLET PO SCH (09:30)
[2020-04-02] MEDS: INSULIN LISPRO 100 UNIT/ML SUBCUT SCH ×5 (09:30→20:14)
[2020-04-02] MEDS: SODIUM CHLORIDE 0.9% 1,000 ML IV SCH (13:55)
[2020-04-02] MEDS: busPIRone 10 MG TABLET PEG SCH (20:13)
[2020-04-02] MEDS: ZALEPLON 5 MG CAPSULE PO SCH (20:13)
[2020-04-02] MEDS: APIXABAN 5 MG TABLET PO SCH (20:14)
[2020-04-02] MEDS: MELATONIN 3 MG TABLET PO PRN (20:14)
[2020-04-03] MEDS: PIPERACILLIN/TAZOBACTAM 3,375 MG in SODIUM CHLORIDE 0.9% 100 ML IV SCH ×3 (03:00→20:28)
[2020-04-03] MEDS: SODIUM CHLORIDE 0.9% 1,000 ML IV SCH ×2 (04:24→18:39)
[2020-04-03] MEDS: ALBUTEROL/IPRATROPIUM 3 ML NEB RESP TX SCH ×3 (07:25→19:49)
[2020-04-03] MEDS: CLOTRIMAZOLE 10 MG TROCHE PO SCH ×6 (07:57→23:12)
[2020-04-03] MEDS: INSULIN LISPRO 100 UNIT/ML SUBCUT SCH ×5 (09:24→23:15)
[2020-04-03] MEDS: predniSONE 20 MG TABLET PO SCH (09:25)
[2020-04-03] MEDS: NYSTATIN 500,000 UNIT/5 ML UDCUP SWISH/SWAL SCH ×4 (09:25→20:28)
[2020-04-03] MEDS: FLUoxetine 20 MG CAPSULE PO SCH (09:26)
[2020-04-03] MEDS: FAMOTIDINE 20 MG TABLET PO SCH ×2 (09:26→20:29)
[2020-04-03] MEDS: TAMSULOSIN 0.4 MG CAPSULE PO SCH ×2 (09:26→20:28)
[2020-04-03] MEDS: lisinopriL 10 MG TABLET PO SCH (09:26)
[2020-04-03] MEDS: MEGESTROL 40 MG TABLET PO SCH (09:26)
[2020-04-03] MEDS: OXYBUTYNIN 5 MG TABLET PO SCH ×2 (09:26→20:28)
[2020-04-03] MEDS: APIXABAN 5 MG TABLET PO SCH ×2 (09:26→20:28)
[2020-04-03] MEDS: busPIRone 10 MG TABLET PEG SCH ×2 (09:26→20:29)
[2020-04-03] MEDS: FLUTICASONE/SALMETEROL 250-50 DISKUS 14 DOSE INH SCH ×2 (09:27→20:28)
[2020-04-03] MEDS: PREGABALIN 100 MG CAPSULE PO SCH ×3 (09:27→20:29)
[2020-04-03] MEDS: GABAPENTIN 300 MG CAPSULE PO SCH ×3 (09:27→20:29)
[2020-04-03] MEDS: ATAZANAVIR 300 MG PO SCH (09:28)
[2020-04-03] MEDS: RALTEGRAVIR 400 MG TABLET PO SCH ×2 (09:28→20:30)
[2020-04-03] MEDS: RILPIVIRINE 25 MG PEG SCH (09:28)
[2020-04-03] MEDS: Ritonavir [Norvir] 100 MG PEG SCH (09:28)
[2020-04-03] MEDS: ZALEPLON 5 MG CAPSULE PO SCH (20:29)
[2020-04-03] MEDS: MELATONIN 3 MG TABLET PO PRN (20:29)
[2020-04-04] MEDS ORDERED: INSULIN LISPRO 100 UNIT/ML SUBCUT ONE
[2020-04-04] MEDS: ALBUTEROL/IPRATROPIUM 3 ML NEB RESP TX SCH ×4 (01:02→19:12)
[2020-04-04] MEDS: PIPERACILLIN/TAZOBACTAM 3,375 MG in SODIUM CHLORIDE 0.9% 100 ML IV SCH ×3 (02:34→21:28)
[2020-04-04] MEDS: SODIUM CHLORIDE 0.9% 1,000 ML IV SCH ×2 (05:00→06:10)
[2020-04-04 05:21] LABS: Basophils # 0.1 10*3/uL (0.0-0.2); Basophils % 0.7 % (0.0-0.8); Hematocrit 36.8 VOL% (42.0-52.0); Hemoglobin 12.5 GM/DL (14.0-18.0); Immature Granulocytes % 7.6 %; Immature Granulocytes Absolute 1.03 #; Lymphocytes # 0.5 10*3/uL (1.4-4.0); Lymphocytes % 3.8 % (21.2-54.2); Mean Corpuscular Volume 85.2 FL (87-102); Monocytes % 6.7 % (1.7-12.7); NRBC # 0.02 10*3/uL; Neutrophils % 81.2 % (38.7-73.9); Platelet Count 115 T/CUMM (130-400); Red Blood Count 4.32 MC/CUMM (3.8-5.5); Red Cell Distribution Width 17.2 % (9.3-17.3); White Blood Count 13.6 T/CUMM (4-12)
[2020-04-04 05:33] LABS: Calcium 8.9 MG/DL (8.5-10.1)
[2020-04-04 05:42] LABS: Lymphocytes 3 % (20-55); Segmented Neutrophils 86 % (50-85); Total Cells Counted 100
[2020-04-04 05:43] LABS: Hypochromasia 1+; Microcytosis 1+; Ovalocytes Slight; Platelet Estimate Decreased
[2020-04-04] MEDS: CLOTRIMAZOLE 10 MG TROCHE PO SCH ×5 (06:09→21:22)
[2020-04-04] MEDS ORDERED: INSULIN GLARGINE 100 UNIT/ML SUBCUT SCH (09:00)
[2020-04-04] MEDS: FLUoxetine 20 MG CAPSULE PO SCH (10:11)
[2020-04-04] MEDS: MEGESTROL 40 MG TABLET PO SCH (10:11)
[2020-04-04] MEDS: GABAPENTIN 300 MG CAPSULE PO SCH ×3 (10:11→21:22)
[2020-04-04] MEDS: Ritonavir [Norvir] 100 MG PEG SCH (10:11)
[2020-04-04] MEDS: TAMSULOSIN 0.4 MG CAPSULE PO SCH ×2 (10:11→21:21)
[2020-04-04] MEDS: PREGABALIN 100 MG CAPSULE PO SCH ×3 (10:11→21:21)
[2020-04-04] MEDS: predniSONE 20 MG TABLET PO SCH ×2 (10:12)
[2020-04-04] MEDS: busPIRone 10 MG TABLET PEG SCH ×2 (10:13→21:21)
[2020-04-04] MEDS: APIXABAN 5 MG TABLET PO SCH ×2 (10:13→21:21)
[2020-04-04] MEDS: INSULIN LISPRO 100 UNIT/ML SUBCUT SCH ×4 (10:13→21:53)
[2020-04-04] MEDS: lisinopriL 10 MG TABLET PO SCH (10:13)
[2020-04-04] MEDS: ATAZANAVIR 300 MG PO SCH (10:14)
[2020-04-04] MEDS: OXYBUTYNIN 5 MG TABLET PO SCH ×2 (10:14→21:21)
[2020-04-04] MEDS: NYSTATIN 500,000 UNIT/5 ML UDCUP SWISH/SWAL SCH ×4 (10:14→21:21)
[2020-04-04] MEDS: RALTEGRAVIR 400 MG TABLET PO SCH ×2 (10:15→21:53)
[2020-04-04] MEDS: RILPIVIRINE 25 MG PEG SCH (10:15)
[2020-04-04] MEDS: FAMOTIDINE 20 MG TABLET PO SCH ×2 (10:15→21:22)
[2020-04-04] MEDS: FLUTICASONE/SALMETEROL 250-50 DISKUS 14 DOSE INH SCH ×2 (10:15→21:28)
[2020-04-04] MEDS: ZALEPLON 5 MG CAPSULE PO SCH (21:22)
[2020-04-05] MEDS: INSULIN LISPRO 100 UNIT/ML SUBCUT SCH ×5 (01:02→23:03)
[2020-04-05] MEDS: ALBUTEROL/IPRATROPIUM 3 ML NEB RESP TX SCH ×4 (01:26→19:04)
[2020-04-05] MEDS: PIPERACILLIN/TAZOBACTAM 3,375 MG in SODIUM CHLORIDE 0.9% 100 ML IV SCH ×3 (03:51→23:07)
[2020-04-05] MEDS: CLOTRIMAZOLE 10 MG TROCHE PO SCH ×5 (06:32→23:06)
[2020-04-05 08:26] LABS: Basophils % 0.1 % (0.0-0.8); Eosinophils % 0.1 % (0.00-10.9); Hematocrit 38.1 VOL% (42.0-52.0); Hemoglobin 12.9 GM/DL (14.0-18.0); Immature Granulocytes % 10.2 %; Immature Granulocytes Absolute 1.26 #; Lymphocytes # 0.7 10*3/uL (1.4-4.0); Lymphocytes % 5.7 % (21.2-54.2); Mean Corpuscular HGB Conc 33.9 GM/DL (32-36); Mean Corpuscular Volume 86.2 FL (87-102); Monocytes % 7.7 % (1.7-12.7); Neutrophils % 76.2 % (38.7-73.9); Platelet Count 120 T/CUMM (130-400); Red Blood Count 4.42 MC/CUMM (3.8-5.5); Red Cell Distribution Width 18.1 % (9.3-17.3); White Blood Count 12.4 T/CUMM (4-12)
[2020-04-05] MEDS: INSULIN GLARGINE 100 UNIT/ML SUBCUT SCH (08:27)
[2020-04-05] MEDS: APIXABAN 5 MG TABLET PO SCH ×2 (08:29→23:07)
[2020-04-05] MEDS: FAMOTIDINE 20 MG TABLET PO SCH ×2 (08:29→23:05)
[2020-04-05] MEDS: GABAPENTIN 300 MG CAPSULE PO SCH ×3 (08:30→23:05)
[2020-04-05] MEDS: FLUoxetine 20 MG CAPSULE PO SCH (08:30)
[2020-04-05] MEDS: PREGABALIN 100 MG CAPSULE PO SCH ×3 (08:30→23:06)
[2020-04-05] MEDS: lisinopriL 10 MG TABLET PO SCH (08:31)
[2020-04-05] MEDS: predniSONE 20 MG TABLET PO SCH (08:31)
[2020-04-05] MEDS: busPIRone 10 MG TABLET PEG SCH ×2 (08:31→23:05)
[2020-04-05] MEDS: OXYBUTYNIN 5 MG TABLET PO SCH ×2 (08:31→23:06)
[2020-04-05] MEDS: TAMSULOSIN 0.4 MG CAPSULE PO SCH ×2 (08:33→23:06)
[2020-04-05] MEDS: Ritonavir [Norvir] 100 MG PEG SCH (08:33)
[2020-04-05] MEDS: ATAZANAVIR 300 MG PO SCH (08:34)
[2020-04-05] MEDS: RALTEGRAVIR 400 MG TABLET PO SCH (08:34)
[2020-04-05] MEDS: RILPIVIRINE 25 MG PEG SCH (08:34)
[2020-04-05 08:53] LABS: Lymphocytes 5 % (20-55); Segmented Neutrophils 89 % (50-85); Total Cells Counted 100
[2020-04-05 08:54] LABS: Hypochromasia Slight; Microcytosis Slight; Osmolality,Calculated 311.8 MOS/KG (273-304); Ovalocytes Slight
[2020-04-05] MEDS: NYSTATIN 500,000 UNIT/5 ML UDCUP SWISH/SWAL SCH ×4 (10:37→23:06)
[2020-04-05] MEDS: FLUTICASONE/SALMETEROL 250-50 DISKUS 14 DOSE INH SCH ×2 (10:38→23:07)
[2020-04-05] MEDS: MENTHOL/ZINC OXIDE OINT 71 GM JAR TOP SCH ×2 (17:27→23:07)
[2020-04-05] MEDS: SODIUM CHLORIDE 0.9% 1,000 ML IV SCH (18:04)
[2020-04-05] MEDS: ZALEPLON 5 MG CAPSULE PO SCH (23:05)
[2020-04-06] MEDS: ALBUTEROL/IPRATROPIUM 3 ML NEB RESP TX SCH ×4 (01:00→19:38)
[2020-04-06 06:36] LABS: Basophils # 0.1 10*3/uL (0.0-0.2); Basophils % 0.9 % (0.0-0.8); Hematocrit 37.1 VOL% (42.0-52.0); Hemoglobin 12.7 GM/DL (14.0-18.0); Immature Granulocytes % 9.3 %; Immature Granulocytes Absolute 1.15 #; Lymphocytes # 0.7 10*3/uL (1.4-4.0); Lymphocytes % 5.6 % (21.2-54.2); Mean Corpuscular HGB Conc 34.2 GM/DL (32-36); Mean Corpuscular Volume 86.3 FL (87-102); Monocytes % 7.4 % (1.7-12.7); NRBC # 0.02 10*3/uL; Neutrophils % 76.8 % (38.7-73.9); Platelet Count 102 T/CUMM (130-400); Red Cell Distribution Width 17.9 % (9.3-17.3); White Blood Count 12.4 T/CUMM (4-12)
[2020-04-06 06:45] LABS: Calcium 9.1 MG/DL (8.5-10.1); Osmolality,Calculated 316.7 MOS/KG (273-304)
[2020-04-06 06:46] LABS: Lymphocytes 10 % (20-55); Segmented Neutrophils 81 % (50-85); Total Cells Counted 100
[2020-04-06 06:47] LABS: Hypochromasia 1+; Microcytosis Slight; Ovalocytes Slight; Platelet Estimate Decreased
[2020-04-06] MEDS: CLOTRIMAZOLE 10 MG TROCHE PO SCH ×4 (07:38→21:26)
[2020-04-06] MEDS: RILPIVIRINE 25 MG PEG SCH (09:28)
[2020-04-06] MEDS: Ritonavir [Norvir] 100 MG PEG SCH (09:29)
[2020-04-06] MEDS: FLUoxetine 20 MG CAPSULE PO SCH (09:41)
[2020-04-06] MEDS: GABAPENTIN 300 MG CAPSULE PO SCH ×3 (09:42→21:26)
[2020-04-06] MEDS: APIXABAN 5 MG TABLET PO SCH ×2 (09:42→21:27)
[2020-04-06] MEDS: TAMSULOSIN 0.4 MG CAPSULE PO SCH ×2 (09:42→21:27)
[2020-04-06] MEDS: lisinopriL 10 MG TABLET PO SCH (09:42)
[2020-04-06] MEDS: predniSONE 20 MG TABLET PO SCH (09:42)
[2020-04-06] MEDS: OXYBUTYNIN 5 MG TABLET PO SCH ×2 (09:43→21:27)
[2020-04-06] MEDS: NYSTATIN 500,000 UNIT/5 ML UDCUP SWISH/SWAL SCH ×4 (09:43→21:27)
[2020-04-06] MEDS: PREGABALIN 100 MG CAPSULE PO SCH ×3 (09:43→21:27)
[2020-04-06] MEDS: PIPERACILLIN/TAZOBACTAM 3,375 MG in SODIUM CHLORIDE 0.9% 100 ML IV SCH ×3 (09:44→23:33)
[2020-04-06] MEDS: FLUTICASONE/SALMETEROL 250-50 DISKUS 14 DOSE INH SCH ×2 (09:44→21:27)
[2020-04-06] MEDS: busPIRone 10 MG TABLET PEG SCH ×2 (09:44→21:26)
[2020-04-06] MEDS: INSULIN LISPRO 100 UNIT/ML SUBCUT SCH ×4 (09:44→23:32)
[2020-04-06] MEDS: ATAZANAVIR 300 MG PO SCH (09:44)
[2020-04-06] MEDS: MENTHOL/ZINC OXIDE OINT 71 GM JAR TOP SCH ×2 (09:45→21:28)
[2020-04-06] MEDS: FAMOTIDINE 20 MG TABLET PO SCH ×2 (09:45→21:27)
[2020-04-06] MEDS: INSULIN GLARGINE 100 UNIT/ML SUBCUT SCH (09:45)
[2020-04-06] MEDS ORDERED: TUBERCULIN SKIN TEST 0.1 ML SYRINGE INTRADERM ONE (16:56)
[2020-04-06] MEDS: ZALEPLON 5 MG CAPSULE PO SCH (21:26)
[2020-04-06] MEDS: MELATONIN 3 MG TABLET PO PRN (21:27)
[2020-04-07] MEDS: ALBUTEROL/IPRATROPIUM 3 ML NEB RESP TX SCH ×3 (01:00→13:28)
[2020-04-07 04:49] LABS: Basophils # 0.1 10*3/uL (0.0-0.2); Basophils % 0.5 % (0.0-0.8); Eosinophils % 0.1 % (0.00-10.9); Hematocrit 36.1 VOL% (42.0-52.0); Hemoglobin 12.1 GM/DL (14.0-18.0); Immature Granulocytes % 7.3 %; Immature Granulocytes Absolute 1.05 #; Lymphocytes # 0.8 10*3/uL (1.4-4.0); Lymphocytes % 5.6 % (21.2-54.2); Mean Corpuscular HGB Conc 33.5 GM/DL (32-36); Mean Corpuscular Volume 87.2 FL (87-102); Monocytes % 6.8 % (1.7-12.7); Neutrophils % 79.7 % (38.7-73.9); Platelet Count 100 T/CUMM (130-400); Red Blood Count 4.14 MC/CUMM (3.8-5.5); Red Cell Distribution Width 18.1 % (9.3-17.3); White Blood Count 14.5 T/CUMM (4-12)
[2020-04-07 05:08] LABS: Band Neutrophils 1 % (0-10); Hypochromasia 1+; Lymphocytes 10 % (20-55); Ovalocytes Slight; Platelet Estimate Decreased; Segmented Neutrophils 83 % (50-85); Total Cells Counted 100
[2020-04-07 05:09] LABS: Microcytosis Slight
[2020-04-07 05:12] LABS: Osmolality,Calculated 311.1 MOS/KG (273-304)
[2020-04-07 05:19] LABS: Calcium 8.4 MG/DL (8.5-10.1)
[2020-04-07] MEDS: CLOTRIMAZOLE 10 MG TROCHE PO SCH ×3 (06:46→11:03)
[2020-04-07] MEDS: SODIUM CHLORIDE 0.9% 1,000 ML IV SCH (06:48)
[2020-04-07] MEDS: RILPIVIRINE 25 MG PEG SCH (08:38)
[2020-04-07] MEDS: INSULIN LISPRO 100 UNIT/ML SUBCUT SCH ×2 (08:39→11:24)
[2020-04-07] MEDS: INSULIN GLARGINE 100 UNIT/ML SUBCUT SCH (08:39)
[2020-04-07] MEDS: Ritonavir [Norvir] 100 MG PEG SCH (08:39)
[2020-04-07] MEDS: NYSTATIN 500,000 UNIT/5 ML UDCUP SWISH/SWAL SCH ×2 (08:39→13:42)
[2020-04-07] MEDS: FLUoxetine 20 MG CAPSULE PO SCH (08:40)
[2020-04-07] MEDS: FAMOTIDINE 20 MG TABLET PO SCH (08:40)
[2020-04-07] MEDS: predniSONE 20 MG TABLET PO SCH (08:40)
[2020-04-07] MEDS: OXYBUTYNIN 5 MG TABLET PO SCH (08:40)
[2020-04-07] MEDS: TAMSULOSIN 0.4 MG CAPSULE PO SCH (08:41)
[2020-04-07] MEDS: lisinopriL 10 MG TABLET PO SCH (08:41)
[2020-04-07] MEDS: GABAPENTIN 300 MG CAPSULE PO SCH (08:41)
[2020-04-07] MEDS: PREGABALIN 100 MG CAPSULE PO SCH (08:41)
[2020-04-07] MEDS: busPIRone 10 MG TABLET PEG SCH (08:41)
[2020-04-07] MEDS: PIPERACILLIN/TAZOBACTAM 3,375 MG in SODIUM CHLORIDE 0.9% 100 ML IV SCH (08:42)
[2020-04-07] MEDS: MENTHOL/ZINC OXIDE OINT 71 GM JAR TOP SCH (08:42)
[2020-04-07] MEDS: ATAZANAVIR 300 MG PO SCH (08:42)
[2020-04-07] MEDS: FLUTICASONE/SALMETEROL 250-50 DISKUS 14 DOSE INH SCH (08:42)
[2020-04-07] MEDS ORDERED: SODIUM POLYSTYRENE SULFATE 15 GM/60 ML BOTTLE PO STA (11:10)
[2020-04-07 11:32] VITALS: BP 131/75
[2020-04-07] MEDS ORDERED: INFLUENZA VIRUS VACCINE 0.5 ML SYRINGE IM ONE (13:27)
== END 2020-04-07 14:20 | DRG 974 ==
LOC: EDUNIT# → EDBD → N.ED 19:41 → N.EDINP 19:41 → SUATTDRO 22:58 → N.4E 03-27 00:05 → SUATTDRO 03-27 12:50
PROVIDERS: ADMIT Internal Medicine; ATTEND Internal Medicine
PROC: EGDWPEG (ICD-10-PCS; 2020-03-31 10:50)

== ENCOUNTER 2020-04-16 17:02 | Inpatient (IN) ==
[2020-04-16 18:03] LABS: Basophils % 0.4 % (0.0-0.8); Eosinophils % 0.2 % (0.00-10.9); Hemoglobin 15.8 GM/DL (14.0-18.0); Immature Granulocytes % 0.4 %; Immature Granulocytes Absolute 0.02 #; Lymphocytes # 0.9 10*3/uL (1.4-4.0); Lymphocytes % 17.6 % (21.2-54.2); Mean Corpuscular HGB Conc 32.9 GM/DL (32-36); Mean Corpuscular Volume 89.1 FL (87-102); Monocytes % 4.1 % (1.7-12.7); Neutrophils % 77.3 % (38.7-73.9); Platelet Count 105 T/CUMM (130-400); Red Blood Count 5.39 MC/CUMM (3.8-5.5); Red Cell Distribution Width 21.1 % (9.3-17.3); White Blood Count 4.9 T/CUMM (4-12)
[2020-04-16 18:11] LABS: Albumin 2.5 G/DL (3.4-5.0); Bilirubin,Total 3.3 MG/DL (0.2-1.0); Calcium 9.9 MG/DL (8.5-10.1); Osmolality,Calculated 309.5 MOS/KG (273-304); Total Protein 8.6 G/DL (6.4-8.3)
[2020-04-16] MEDS ORDERED: SODIUM CHLORIDE 0.9% 1,000 ML IV STA (18:38)
[2020-04-16] MEDS ORDERED: PIPERACILLIN/TAZOBACTAM 3,375 MG in SODIUM CHLORIDE 0.9% 100 ML IV STA (18:38)
[2020-04-16] MEDS ORDERED: VANCOMYCIN INJ 1,000 MG in SODIUM CHLORIDE 0.9% 250 ML IV STA (18:39)
[2020-04-16] MEDS ORDERED: ALBUTEROL/IPRATROPIUM 3 ML NEB RESP TX STA (18:39)
[2020-04-16 18:45] LABS: Lymphocytes 24 % (20-55); Segmented Neutrophils 70 % (50-85); Total Cells Counted 100
[2020-04-16] MEDS ORDERED: DEXTROSE 50% 25 GM/50 ML VIAL IV PRN ×2 (18:49)
[2020-04-16] MEDS ORDERED: ZALEPLON 5 MG CAPSULE PO PRN (18:49)
[2020-04-16] MEDS ORDERED: MORPHINE 4 MG/1 ML VIAL IV PRN (18:49)
[2020-04-16] MEDS ORDERED: diphenhydrAMINE CAP 25 MG CAPSULE PO PRN (18:49)
[2020-04-16] MEDS ORDERED: GLUCAGON 1 MG VIAL IM PRN (18:49)
[2020-04-16] MEDS ORDERED: ONDANSETRON 4 MG/2 ML VIAL IV PRN (18:49)
[2020-04-16] MEDS ORDERED: hydrALAZINE 20 MG/1 ML VIAL IV PRN (18:49)
[2020-04-16] MEDS ORDERED: ACETAMINOPHEN 325 MG TABLET PO PRN (18:49)
[2020-04-16] MEDS ORDERED: guaiFENesin/DM ER 600-30 MG TABLET PO PRN (18:49)
[2020-04-16] MEDS ORDERED: NICOTINE 21 MG/24 HR PATCH TRANSDERM PRN (18:49)
[2020-04-16] MEDS ORDERED: AZITHROMYCIN INJ 500 MG in SODIUM CHLORIDE 0.9% 250 ML IV SCH (19:00)
[2020-04-16] MEDS: ALBUTEROL/IPRATROPIUM 3 ML NEB RESP TX SCH (19:16)
[2020-04-16] MEDS ORDERED: VANCOMYCIN INJ 750 MG in SODIUM CHLORIDE 0.9% 250 ML IV PRN (20:50)
[2020-04-16] MEDS ORDERED: HEPARIN 5,000 UNIT/1 ML VIAL SUBCUT SCH (21:00)
[2020-04-16] MEDS ORDERED: VANCOMYCIN INJ 750 MG in SODIUM CHLORIDE 0.9% 250 ML IV ONE (21:30)
[2020-04-16] MEDS: DOCUSATE SODIUM 100 MG CAPSULE PO SCH (22:51)
[2020-04-17] MEDS: ALBUTEROL/IPRATROPIUM 3 ML NEB RESP TX SCH ×4 (00:06→11:30)
[2020-04-17] MEDS: SODIUM CHLORIDE 0.9% 1,000 ML IV SCH ×4 (00:30→21:14)
[2020-04-17] MEDS: INSULIN LISPRO 100 UNIT/ML SUBCUT SCH ×5 (01:17→20:45)
[2020-04-17 01:20] LABS: Band Neutrophils 3 % (0-10); Lymphocytes 19 % (20-55); Platelet Estimate Adequate; Segmented Neutrophils 73 % (50-85); Total Cells Counted 100
[2020-04-17 01:37] LABS: Basophils % 0.2 % (0.0-0.8); Hematocrit 41.4 VOL% (42.0-52.0); Hemoglobin 13.8 GM/DL (14.0-18.0); Immature Granulocytes % 0.2 %; Immature Granulocytes Absolute 0.01 #; Lymphocytes # 0.8 10*3/uL (1.4-4.0); Lymphocytes % 15.5 % (21.2-54.2); Mean Corpuscular HGB Conc 33.3 GM/DL (32-36); Mean Corpuscular Volume 89.4 FL (87-102); Neutrophils % 76.1 % (38.7-73.9); Platelet Count 110 T/CUMM (130-400); Red Blood Count 4.63 MC/CUMM (3.8-5.5); Red Cell Distribution Width 20.6 % (9.3-17.3); White Blood Count 5.2 T/CUMM (4-12)
[2020-04-17] MEDS: PIPERACILLIN/TAZOBACTAM 3,375 MG in SODIUM CHLORIDE 0.9% 100 ML IV SCH ×3 (04:27→20:58)
[2020-04-17 04:40] LABS: Calcium 8.8 MG/DL (8.5-10.1); Osmolality,Calculated 320.7 MOS/KG (273-304)
[2020-04-17] MEDS: AZITHROMYCIN 250 MG TABLET PO SCH (08:48)
[2020-04-17] MEDS: DOCUSATE SODIUM 100 MG CAPSULE PO SCH ×2 (08:48→20:52)
[2020-04-17] MEDS: PANTOPRAZOLE 40 MG TABLET PO SCH (08:48)
[2020-04-17] MEDS ORDERED: APIXABAN 2.5 MG TABLET PO SCH (09:00)
[2020-04-17] MEDS ORDERED: SCOPOLAMINE 1.5 MG PATCH TRANSDERM SCH (09:00)
[2020-04-17] MEDS ORDERED: LACTULOSE 20 GM/30 ML UDCUP PEG PRN (11:43)
[2020-04-17] MEDS ORDERED: FLUTICASONE 50 MCG NASAL SPRAY 16 GM BOTTLE BOTH NARES PRN (11:43)
[2020-04-17] MEDS ORDERED: ALBUTEROL/IPRATROPIUM 3 ML NEB RESP TX PRN (11:43)
[2020-04-17] MEDS ORDERED: MELATONIN 3 MG TABLET PEG PRN (11:43)
[2020-04-17] MEDS ORDERED: POLYETHYLENE GLYCOL POWDER 17 GM PACK PEG PRN (11:43)
[2020-04-17 13:17] LABS: Hepatitis B Core IgM Quant 0.13 Index; Hepatitis B Surface Ag Quant < 0.10 Index; Hepatitis B Surface Ag Result Negative (Negative); Hepatitis C Virus Ab Quant 2.58 Index
[2020-04-17] MEDS: PREGABALIN 100 MG CAPSULE PEG SCH ×2 (15:30→20:53)
[2020-04-17] MEDS: CLOTRIMAZOLE 10 MG TROCHE PO SCH ×3 (15:30→21:01)
[2020-04-17] MEDS: INSULIN GLARGINE 100 UNIT/ML SUBCUT SCH (20:45)
[2020-04-17] MEDS: APIXABAN 5 MG TABLET PEG SCH (20:52)
[2020-04-17] MEDS: TAMSULOSIN 0.4 MG CAPSULE PO SCH (20:52)
[2020-04-17] MEDS: OXYBUTYNIN 5 MG TABLET PEG SCH (20:52)
[2020-04-17] MEDS: ZALEPLON 5 MG CAPSULE PEG SCH (20:53)
[2020-04-17] MEDS: FLUTICASONE/SALMETEROL 250-50 DISKUS 14 DOSE INH SCH (20:58)
[2020-04-17] MEDS: FAMOTIDINE 20 MG TABLET PEG SCH (21:00)
[2020-04-17] MEDS ORDERED: RALTEGRAVIR 400 MG TABLET PO SCH (21:00)
[2020-04-17] MEDS: busPIRone 10 MG TABLET PEG SCH (21:00)
[2020-04-18 04:28] LABS: Calcium 8.6 MG/DL (8.5-10.1); Osmolality,Calculated 321.9 MOS/KG (273-304)
[2020-04-18] MEDS: PIPERACILLIN/TAZOBACTAM 3,375 MG in SODIUM CHLORIDE 0.9% 100 ML IV SCH ×2 (04:43→12:48)
[2020-04-18] MEDS: SODIUM CHLORIDE 0.9% 1,000 ML IV SCH (04:48)
[2020-04-18] MEDS: CLOTRIMAZOLE 10 MG TROCHE PO SCH ×5 (07:30→22:42)
[2020-04-18] MEDS: INSULIN LISPRO 100 UNIT/ML SUBCUT SCH ×4 (07:53→22:40)
[2020-04-18 08:14] LABS: Basophils % 0.2 % (0.0-0.8); Eosinophils % 0.8 % (0.00-10.9); Hematocrit 38.8 VOL% (42.0-52.0); Hemoglobin 12.8 GM/DL (14.0-18.0); Immature Granulocytes % 1.3 %; Immature Granulocytes Absolute 0.07 #; Lymphocytes # 0.7 10*3/uL (1.4-4.0); Lymphocytes % 13.4 % (21.2-54.2); Mean Corpuscular Volume 89.6 FL (87-102); Monocytes % 6.9 % (1.7-12.7); Neutrophils % 77.4 % (38.7-73.9); Platelet Count 95 T/CUMM (130-400); Red Blood Count 4.33 MC/CUMM (3.8-5.5); Red Cell Distribution Width 20.7 % (9.3-17.3); White Blood Count 5.2 T/CUMM (4-12)
[2020-04-18 08:35] LABS: Band Neutrophils 2 % (0-10); Eosinophils 2 % (0-10); Hypochromasia 1+; Lymphocytes 9 % (20-55); Microcytosis Slight; Ovalocytes Slight; Platelet Estimate Decreased; Segmented Neutrophils 80 % (50-85); Total Cells Counted 100
[2020-04-18] MEDS ORDERED: ATAZANAVIR 300 MG PEG SCH (09:00)
[2020-04-18] MEDS ORDERED: RILPIVIRINE 25 MG PEG SCH (09:00)
[2020-04-18] MEDS ORDERED: DOLUTEGRAVIR 50 MG PEG SCH (09:00)
[2020-04-18] MEDS ORDERED: RITONAVIR 100 MG PO SCH (09:00)
[2020-04-18] MEDS: GABAPENTIN 50 MG/ML 30 ML/BOTTLE PEG SCH ×3 (11:04→22:44)
[2020-04-18] MEDS: FAMOTIDINE 20 MG TABLET PEG SCH ×2 (11:06→22:43)
[2020-04-18] MEDS: APIXABAN 5 MG TABLET PEG SCH ×2 (11:06→22:43)
[2020-04-18] MEDS: LISINOPRIL/HCTZ 20-25 MG TABLET PEG SCH (11:06)
[2020-04-18] MEDS: AZITHROMYCIN 250 MG TABLET PO SCH (11:06)
[2020-04-18] MEDS: PANTOPRAZOLE 40 MG TABLET PO SCH (11:06)
[2020-04-18] MEDS: busPIRone 10 MG TABLET PEG SCH ×2 (11:06→22:42)
[2020-04-18] MEDS: FLUoxetine 20 MG CAPSULE PEG SCH (11:06)
[2020-04-18] MEDS: OXYBUTYNIN 5 MG TABLET PEG SCH ×2 (11:07→22:43)
[2020-04-18] MEDS: TAMSULOSIN 0.4 MG CAPSULE PO SCH ×2 (11:07→22:44)
[2020-04-18] MEDS: DOCUSATE SODIUM 100 MG CAPSULE PO SCH ×2 (11:07→22:43)
[2020-04-18] MEDS: ESCITALOPRAM 10 MG TABLET PEG SCH (11:07)
[2020-04-18] MEDS: PREGABALIN 100 MG CAPSULE PEG SCH ×3 (11:07→22:44)
[2020-04-18] MEDS: MEGESTROL 40 MG TABLET PEG SCH (11:08)
[2020-04-18] MEDS: FLUTICASONE/SALMETEROL 250-50 DISKUS 14 DOSE INH SCH (11:08)
[2020-04-18] MEDS: POTASSIUM CHLORIDE INJ 20 MEQ, SODIUM CHLORIDE 23.4% CONC INJ 38.5 MEQ in STERILE WATER... IV SCH (12:49)
[2020-04-18] MEDS: VANCOMYCIN INJ 1,500 MG in SODIUM CHLORIDE 0.9% 500 ML IV SCH (18:43)
[2020-04-18] MEDS: INSULIN GLARGINE 100 UNIT/ML SUBCUT SCH (22:39)
[2020-04-18] MEDS: ZALEPLON 5 MG CAPSULE PEG SCH (22:43)
[2020-04-19] MEDS: PIPERACILLIN/TAZOBACTAM 3,375 MG in SODIUM CHLORIDE 0.9% 100 ML IV SCH ×4 (00:41→17:20)
[2020-04-19 05:03] LABS: Basophils % 0.4 % (0.0-0.8); Eosinophils # 0.1 10*3/uL (0.0-0.87); Eosinophils % 1.2 % (0.00-10.9); Hematocrit 36.6 VOL% (42.0-52.0); Immature Granulocytes % 1.8 %; Immature Granulocytes Absolute 0.09 #; Lymphocytes # 0.9 10*3/uL (1.4-4.0); Lymphocytes % 17.6 % (21.2-54.2); Mean Corpuscular HGB Conc 32.8 GM/DL (32-36); Mean Corpuscular Volume 89.3 FL (87-102); Monocytes % 6.7 % (1.7-12.7); Neutrophils % 72.3 % (38.7-73.9); Platelet Count 104 T/CUMM (130-400); Red Cell Distribution Width 20.6 % (9.3-17.3); White Blood Count 5.1 T/CUMM (4-12)
[2020-04-19 05:30] LABS: Band Neutrophils 1 % (0-10); Eosinophils 2 % (0-10); Hypochromasia 1+; Lymphocytes 17 % (20-55); Microcytosis 1+; Ovalocytes Slight; Platelet Estimate Decreased; Segmented Neutrophils 75 % (50-85); Total Cells Counted 100
[2020-04-19 05:38] LABS: Calcium 9.1 MG/DL (8.5-10.1); Osmolality,Calculated 329.6 MOS/KG (273-304)
[2020-04-19] MEDS: CLOTRIMAZOLE 10 MG TROCHE PO SCH ×4 (06:43→17:45)
[2020-04-19] MEDS: FLUTICASONE/SALMETEROL 250-50 DISKUS 14 DOSE INH SCH ×2 (07:49→09:27)
[2020-04-19] MEDS: POTASSIUM CHLORIDE INJ 20 MEQ, SODIUM CHLORIDE 23.4% CONC INJ 38.5 MEQ in STERILE WATER... IV SCH (09:25)
[2020-04-19] MEDS: INSULIN LISPRO 100 UNIT/ML SUBCUT SCH ×3 (09:25→17:20)
[2020-04-19] MEDS: OXYBUTYNIN 5 MG TABLET PEG SCH (09:26)
[2020-04-19] MEDS: TAMSULOSIN 0.4 MG CAPSULE PO SCH (09:26)
[2020-04-19] MEDS: PREGABALIN 100 MG CAPSULE PEG SCH ×2 (09:26→17:20)
[2020-04-19] MEDS: APIXABAN 5 MG TABLET PEG SCH (09:26)
[2020-04-19] MEDS: MEGESTROL 40 MG TABLET PEG SCH (09:26)
[2020-04-19] MEDS: PANTOPRAZOLE 40 MG TABLET PO SCH (09:26)
[2020-04-19] MEDS: FLUoxetine 20 MG CAPSULE PEG SCH (09:26)
[2020-04-19] MEDS: ESCITALOPRAM 10 MG TABLET PEG SCH (09:27)
[2020-04-19] MEDS: busPIRone 10 MG TABLET PEG SCH (09:27)
[2020-04-19] MEDS: AZITHROMYCIN 250 MG TABLET PO SCH (09:27)
[2020-04-19] MEDS: DOCUSATE SODIUM 100 MG CAPSULE PO SCH (09:27)
[2020-04-19] MEDS: FAMOTIDINE 20 MG TABLET PEG SCH (09:27)
[2020-04-19] MEDS: LISINOPRIL/HCTZ 20-25 MG TABLET PEG SCH (09:27)
[2020-04-19] MEDS: GABAPENTIN 50 MG/ML 30 ML/BOTTLE PEG SCH ×2 (09:28→17:20)
[2020-04-19] MEDS ORDERED: TUBERCULIN SKIN TEST 0.1 ML SYRINGE INTRADERM ONE (11:36)
[2020-04-19 13:02] VITALS: BP 114/70
[2020-04-19] MEDS: VANCOMYCIN INJ 1,500 MG in SODIUM CHLORIDE 0.9% 500 ML IV SCH (13:13)
[2020-04-19 13:25] LABS: Calcium 9.1 MG/DL (8.5-10.1); Osmolality,Calculated 324.6 MOS/KG (273-304)
[2020-04-19] MEDS ORDERED: POTASSIUM PHOSPHATE 24 MMOL in SODIUM CHLORIDE 0.9% 250 ML IV ONE (14:30)
[2020-05-10 13:08] LABS: Yeast Susceptibility Panel SEE COMMENTS
== END 2020-04-19 19:22 | DRG 871 ==
LOC: EDUNIT# → EDBD → N.ED 17:02 → N.EDINP 18:49 → SUATTDRO 18:49 → N.4E 20:27
PROVIDERS: ADMIT Emergency Medicine; ATTEND Internal Medicine

== ENCOUNTER 2020-04-23 13:33 | Inpatient (IN) ==
[2020-04-23 14:24] LABS: Basophils % 0.4 % (0.0-0.8); Eosinophils % 0.1 % (0.00-10.9); Hematocrit 36.3 VOL% (42.0-52.0); Hemoglobin 11.6 GM/DL (14.0-18.0); Immature Granulocytes Absolute 0.11 #; Lymphocytes # 1.9 10*3/uL (1.4-4.0); Lymphocytes % 18.3 % (21.2-54.2); Mean Corpuscular Volume 91.2 FL (87-102); Mean Platelet Volume 13.5 FL (9.6-12.0); Monocytes % 4.2 % (1.7-12.7); Platelet Count 164 T/CUMM (130-400); Red Blood Count 3.98 MC/CUMM (3.8-5.5); Red Cell Distribution Width 21.3 % (9.3-17.3); White Blood Count 10.6 T/CUMM (4-12)
[2020-04-23 14:41] LABS: Albumin 1.7 G/DL (3.4-5.0); Bilirubin,Total 1.4 MG/DL (0.2-1.0); Calcium 8.9 MG/DL (8.5-10.1); Osmolality,Calculated 307.6 MOS/KG (273-304); Total Protein 6.7 G/DL (6.4-8.3)
[2020-04-23] MEDS ORDERED: LEVOFLOXACIN INJ 500 MG in PREMIX 1 EACH IV STA (14:47)
[2020-04-23] MEDS ORDERED: SODIUM CHLORIDE 0.9% 1,000 ML IV STA (14:47)
[2020-04-23 14:49] LABS: ABG Base Excess 0.5 MMOL/L (-2.5-2.5); ABG HCO3 24.8 MMOL/L (20-26); ABG Oxygen Saturation 94.6 % (95-100); ABG PCO2 33.5 MM HG (35-48); ABG PH 7.459 (7.35-7.45); ABG PO2 71.1 MM HG (80-95)
[2020-04-23 14:50] LABS: Allen Test Positive
[2020-04-23] MEDS ORDERED: DEXTROSE 50% 25 GM/50 ML VIAL IV PRN (15:18)
[2020-04-23] MEDS ORDERED: ONDANSETRON 4 MG/2 ML VIAL IV PRN (15:18)
[2020-04-23] MEDS ORDERED: BISACODYL 5 MG TABLET PO PRN (15:18)
[2020-04-23] MEDS ORDERED: GLUCAGON 1 MG VIAL IM PRN (15:18)
[2020-04-23] MEDS ORDERED: ALBUTEROL 2.5 MG/3 ML NEB RESP TX PRN (15:23)
[2020-04-23] MEDS ORDERED: ENOXAPARIN 40 MG/0.4 ML SYRINGE SUBCUT SCH (15:30)
[2020-04-23] MEDS: PIPERACILLIN/TAZOBACTAM 3,375 MG in SODIUM CHLORIDE 0.9% 100 ML IV SCH ×2 (17:18→23:24)
[2020-04-23] MEDS: SODIUM CHLORIDE 0.9% 1,000 ML IV SCH ×2 (17:18→23:24)
[2020-04-23] MEDS: ALBUTEROL/IPRATROPIUM 3 ML NEB RESP TX SCH ×2 (19:03→19:20)
[2020-04-23] MEDS: INSULIN LISPRO 100 UNIT/ML SUBCUT SCH ×2 (19:11→23:27)
[2020-04-23] MEDS: VANCOMYCIN INJ 1,250 MG in SODIUM CHLORIDE 0.9% 250 ML IV SCH (20:56)
[2020-04-23] MEDS: MICAFUNGIN 100 MG in SODIUM CHLORIDE 0.9% 100 ML IV SCH (20:56)
[2020-04-23] MEDS: APIXABAN 5 MG TABLET PEG SCH (20:57)
[2020-04-23] MEDS: TAMSULOSIN 0.4 MG CAPSULE PO SCH (20:57)
[2020-04-23] MEDS: OXYBUTYNIN 5 MG TABLET PEG SCH (20:57)
[2020-04-23] MEDS: SULFAMETHOX/TRIMETHOPRIM 800-160 MG TABLET PER TUBE SCH (20:57)
[2020-04-23] MEDS: RALTEGRAVIR 400 MG TABLET PO SCH (20:58)
[2020-04-24] MEDS: ALBUTEROL/IPRATROPIUM 3 ML NEB RESP TX SCH ×4 (00:59→20:25)
[2020-04-24] MEDS: INSULIN LISPRO 100 UNIT/ML SUBCUT SCH ×3 (06:20→18:05)
[2020-04-24 07:09] LABS: Basophils % 0.1 % (0.0-0.8); Eosinophils % 0.2 % (0.00-10.9); Hematocrit 31.9 VOL% (42.0-52.0); Hemoglobin 10.3 GM/DL (14.0-18.0); Immature Granulocytes % 1.7 %; Immature Granulocytes Absolute 0.14 #; Lymphocytes # 2.1 10*3/uL (1.4-4.0); Lymphocytes % 26.2 % (21.2-54.2); Mean Corpuscular HGB Conc 32.3 GM/DL (32-36); Mean Corpuscular Volume 92.2 FL (87-102); Mean Platelet Volume 13.6 FL (9.6-12.0); Monocytes % 6.1 % (1.7-12.7); Neutrophils % 65.7 % (38.7-73.9); Platelet Count 144 T/CUMM (130-400); Red Blood Count 3.46 MC/CUMM (3.8-5.5); Red Cell Distribution Width 21.7 % (9.3-17.3); White Blood Count 8.1 T/CUMM (4-12)
[2020-04-24 07:33] LABS: Albumin 1.6 G/DL (3.4-5.0); Bilirubin,Total 2.6 MG/DL (0.2-1.0); Calcium 8.8 MG/DL (8.5-10.1); Osmolality,Calculated 312.1 MOS/KG (273-304); Total Protein 6.2 G/DL (6.4-8.3)
[2020-04-24] MEDS: PIPERACILLIN/TAZOBACTAM 3,375 MG in SODIUM CHLORIDE 0.9% 100 ML IV SCH ×2 (08:19→18:05)
[2020-04-24] MEDS: SODIUM CHLORIDE 0.9% 1,000 ML IV SCH (08:19)
[2020-04-24] MEDS: ATAZANAVIR 300 MG PEG SCH (08:20)
[2020-04-24] MEDS: APIXABAN 5 MG TABLET PEG SCH ×2 (08:22→21:28)
[2020-04-24] MEDS: OXYBUTYNIN 5 MG TABLET PEG SCH ×2 (08:22→21:28)
[2020-04-24] MEDS: ESCITALOPRAM 10 MG TABLET PEG SCH (08:22)
[2020-04-24] MEDS: TAMSULOSIN 0.4 MG CAPSULE PO SCH ×2 (08:22→21:28)
[2020-04-24] MEDS: RALTEGRAVIR 400 MG TABLET PO SCH ×2 (08:23→21:28)
[2020-04-24] MEDS: ACETAMINOPHEN 325 MG TABLET PO PRN (08:23)
[2020-04-24] MEDS: SULFAMETHOX/TRIMETHOPRIM 800-160 MG TABLET PER TUBE SCH ×2 (08:23→21:28)
[2020-04-24] MEDS: DOLUTEGRAVIR 50 MG PEG SCH (08:23)
[2020-04-24] MEDS: RILPIVIRINE 25 MG PEG SCH (08:24)
[2020-04-24] MEDS: CLOTRIMAZOLE 1% CREAM 15 GM TUBE TOP SCH ×2 (08:24→21:28)
[2020-04-24] MEDS: RITONAVIR 100 MG PO SCH (08:24)
[2020-04-24 11:01] LABS: Band Neutrophils 5 % (0-10); Eosinophils 1 % (0-10); Lymphocytes 18 % (20-55); Metamyelocytes 1 %; Ovalocytes Few; Platelet Estimate Adequate; Schistocytes Slight; Segmented Neutrophils 69 % (50-85); Tear Drop Cells Few; Total Cells Counted 100
[2020-04-24] MEDS: SODIUM CHLORIDE 0.45% 1,000 ML IV SCH (13:50)
[2020-04-24] MEDS: SODIUM CHLORIDE 3% 4 ML NEB RESP TX SCH (20:25)
[2020-04-24] MEDS: VANCOMYCIN INJ 1,250 MG in SODIUM CHLORIDE 0.9% 250 ML IV SCH (22:35)
[2020-04-25] MEDS: MICAFUNGIN 100 MG in SODIUM CHLORIDE 0.9% 100 ML IV SCH ×2 (00:43→22:58)
[2020-04-25] MEDS: INSULIN LISPRO 100 UNIT/ML SUBCUT SCH ×4 (00:50→18:41)
[2020-04-25] MEDS: ALBUTEROL/IPRATROPIUM 3 ML NEB RESP TX SCH ×4 (01:48→19:48)
[2020-04-25] MEDS: PIPERACILLIN/TAZOBACTAM 3,375 MG in SODIUM CHLORIDE 0.9% 100 ML IV SCH ×3 (02:10→17:08)
[2020-04-25 06:53] LABS: Albumin 1.7 G/DL (3.4-5.0); Bilirubin,Total 1.4 MG/DL (0.2-1.0); Osmolality,Calculated 307.1 MOS/KG (273-304); Total Protein 6.6 G/DL (6.4-8.3)
[2020-04-25] MEDS: SODIUM CHLORIDE 3% 4 ML NEB RESP TX SCH ×2 (07:13→19:48)
[2020-04-25] MEDS: RALTEGRAVIR 400 MG TABLET PO SCH ×2 (08:55→20:48)
[2020-04-25] MEDS: DOLUTEGRAVIR 50 MG PEG SCH (08:55)
[2020-04-25] MEDS: ATAZANAVIR 300 MG PEG SCH (08:55)
[2020-04-25] MEDS: RITONAVIR 100 MG PO SCH (08:56)
[2020-04-25] MEDS: RILPIVIRINE 25 MG PEG SCH (08:56)
[2020-04-25] MEDS: SULFAMETHOX/TRIMETHOPRIM 800-160 MG TABLET PER TUBE SCH ×2 (08:57→20:48)
[2020-04-25] MEDS: ESCITALOPRAM 10 MG TABLET PEG SCH (08:57)
[2020-04-25] MEDS: OXYBUTYNIN 5 MG TABLET PEG SCH ×2 (08:58→20:48)
[2020-04-25] MEDS: TAMSULOSIN 0.4 MG CAPSULE PO SCH ×2 (08:58→20:48)
[2020-04-25] MEDS: APIXABAN 5 MG TABLET PEG SCH ×2 (08:58→20:48)
[2020-04-25] MEDS: ACETAMINOPHEN 325 MG TABLET PO PRN (09:42)
[2020-04-25] MEDS: CLOTRIMAZOLE 1% CREAM 15 GM TUBE TOP SCH ×2 (10:13→20:59)
[2020-04-25] MEDS: SODIUM CHLORIDE 0.45% 1,000 ML IV SCH ×2 (14:23→18:41)
[2020-04-25] MEDS: VANCOMYCIN INJ 1,250 MG in SODIUM CHLORIDE 0.9% 250 ML IV SCH (21:06)
[2020-04-26] MEDS: PIPERACILLIN/TAZOBACTAM 3,375 MG in SODIUM CHLORIDE 0.9% 100 ML IV SCH ×3 (00:22→21:05)
[2020-04-26] MEDS: INSULIN LISPRO 100 UNIT/ML SUBCUT SCH ×4 (01:31→17:42)
[2020-04-26] MEDS: ALBUTEROL/IPRATROPIUM 3 ML NEB RESP TX SCH ×4 (02:47→20:04)
[2020-04-26 06:50] LABS: Basophils % 0.4 % (0.0-0.8); Eosinophils % 0.3 % (0.00-10.9); Hematocrit 33.1 VOL% (42.0-52.0); Hemoglobin 10.6 GM/DL (14.0-18.0); Immature Granulocytes Absolute 0.28 #; Lymphocytes # 1.9 10*3/uL (1.4-4.0); Lymphocytes % 20.3 % (21.2-54.2); Mean Corpuscular Volume 91.9 FL (87-102); Mean Platelet Volume 13.2 FL (9.6-12.0); Monocytes % 6.9 % (1.7-12.7); Neutrophils % 69.1 % (38.7-73.9); Platelet Count 166 T/CUMM (130-400); Red Cell Distribution Width 20.8 % (9.3-17.3); White Blood Count 9.2 T/CUMM (4-12)
[2020-04-26 07:08] LABS: Calcium 9.2 MG/DL (8.5-10.1); Osmolality,Calculated 306.6 MOS/KG (273-304)
[2020-04-26 07:14] LABS: Band Neutrophils 2 % (0-10); Eosinophils 1 % (0-10); Hypochromasia 1+; Lymphocytes 22 % (20-55); Microcytosis 1+; Ovalocytes Slight; Platelet Estimate Adequate; Segmented Neutrophils 71 % (50-85); Total Cells Counted 100
[2020-04-26] MEDS: SODIUM CHLORIDE 3% 4 ML NEB RESP TX SCH ×2 (07:14→20:11)
[2020-04-26 07:19] LABS: Albumin 1.7 G/DL (3.4-5.0); Bilirubin,Total 0.8 MG/DL (0.2-1.0); Calcium 8.9 MG/DL (8.5-10.1); Osmolality,Calculated 307.4 MOS/KG (273-304); Total Protein 6.7 G/DL (6.4-8.3)
[2020-04-26] MEDS: OXYBUTYNIN 5 MG TABLET PEG SCH ×2 (09:50→21:05)
[2020-04-26] MEDS: APIXABAN 5 MG TABLET PEG SCH ×2 (09:50→21:05)
[2020-04-26] MEDS: TAMSULOSIN 0.4 MG CAPSULE PO SCH ×2 (09:50→21:05)
[2020-04-26] MEDS: ESCITALOPRAM 10 MG TABLET PEG SCH (09:50)
[2020-04-26] MEDS: SULFAMETHOX/TRIMETHOPRIM 800-160 MG TABLET PER TUBE SCH ×2 (09:50→21:05)
[2020-04-26] MEDS: DOLUTEGRAVIR 50 MG PEG SCH (09:51)
[2020-04-26] MEDS: ATAZANAVIR 300 MG PEG SCH (09:51)
[2020-04-26] MEDS: RITONAVIR 100 MG PO SCH (09:51)
[2020-04-26] MEDS: RILPIVIRINE 25 MG PEG SCH (09:51)
[2020-04-26] MEDS: CLOTRIMAZOLE 1% CREAM 15 GM TUBE TOP SCH ×2 (09:51→21:06)
[2020-04-26] MEDS: RALTEGRAVIR 400 MG TABLET PO SCH ×2 (09:51→21:05)
[2020-04-26] MEDS: SODIUM CHLORIDE 0.45% 1,000 ML IV SCH ×2 (14:30→15:59)
[2020-04-26] MEDS ORDERED: SODIUM PHOSPHATE INJ 15 MMOL in SODIUM CHLORIDE 0.9% 250 ML IV ONE (16:00)
[2020-04-26 18:01] LABS: % CD4 (T Cells) 17 % (32-64); % CD8 (T Cells) 54 % (8-40); 4/8 Ratio 0.3 (>=0.9)
[2020-04-26] MEDS: CHOLECALCIFEROL 1,000 UNIT TABLET PEG SCH (21:06)
[2020-04-26] MEDS: VANCOMYCIN INJ 1,250 MG in SODIUM CHLORIDE 0.9% 250 ML IV SCH (21:10)
[2020-04-26] MEDS: MICAFUNGIN 100 MG in SODIUM CHLORIDE 0.9% 100 ML IV SCH (23:59)
[2020-04-27] MEDS: INSULIN LISPRO 100 UNIT/ML SUBCUT SCH ×3 (00:55→16:34)
[2020-04-27] MEDS: ALBUTEROL/IPRATROPIUM 3 ML NEB RESP TX SCH ×3 (01:20→13:36)
[2020-04-27] MEDS: PIPERACILLIN/TAZOBACTAM 3,375 MG in SODIUM CHLORIDE 0.9% 100 ML IV SCH ×2 (01:39→11:26)
[2020-04-27 06:29] LABS: Basophils % 0.3 % (0.0-0.8); Eosinophils % 0.4 % (0.00-10.9); Hematocrit 34.5 VOL% (42.0-52.0); Hemoglobin 11.1 GM/DL (14.0-18.0); Immature Granulocytes % 4.1 %; Immature Granulocytes Absolute 0.37 #; Lymphocytes # 1.8 10*3/uL (1.4-4.0); Lymphocytes % 19.7 % (21.2-54.2); Mean Corpuscular HGB Conc 32.2 GM/DL (32-36); Mean Corpuscular Volume 91.8 FL (87-102); Mean Platelet Volume 12.7 FL (9.6-12.0); Monocytes % 8.8 % (1.7-12.7); Neutrophils % 66.7 % (38.7-73.9); Platelet Count 207 T/CUMM (130-400); Red Blood Count 3.76 MC/CUMM (3.8-5.5); Red Cell Distribution Width 20.6 % (9.3-17.3)
[2020-04-27 06:44] LABS: Calcium 9.4 MG/DL (8.5-10.1); Osmolality,Calculated 300.7 MOS/KG (273-304); Prealbumin 35.4 MG/DL (20-40)
[2020-04-27 07:01] LABS: Eosinophils 1 % (0-10); Hypochromasia 1+; Lymphocytes 17 % (20-55); Microcytosis Slight; Platelet Estimate Adequate; Segmented Neutrophils 75 % (50-85); Total Cells Counted 100
[2020-04-27] MEDS: SODIUM CHLORIDE 3% 4 ML NEB RESP TX SCH (07:07)
[2020-04-27] MEDS ORDERED: MEPERIDINE 50 MG/1 ML VIAL IM ONE (07:30)
[2020-04-27] MEDS ORDERED: PROMETHAZINE 25 MG/1 ML VIAL IM ONE (07:30)
[2020-04-27] MEDS ORDERED: LIDOCAINE 2% VISCOUS 100 ML BOTTLE SWISH/SPIT ONE (08:00)
[2020-04-27] MEDS ORDERED: MIDAZOLAM 2 MG/2 ML VIAL IV ONE (08:00)
[2020-04-27] MEDS ORDERED: LIDOCAINE 1% 20 ML VIAL MISC INJ ONE (08:00)
[2020-04-27] MEDS ORDERED: LIDOCAINE 2% 20 ML VIAL RESP TX ONE (08:00)
[2020-04-27] MEDS: CLOTRIMAZOLE 1% CREAM 15 GM TUBE TOP SCH (08:14)
[2020-04-27] MEDS ORDERED: methylPREDNISolone SOD SUC 40 MG/1 ML VIAL IV SCH (09:00)
[2020-04-27] MEDS: APIXABAN 5 MG TABLET PEG SCH (10:00)
[2020-04-27] MEDS: DOLUTEGRAVIR 50 MG PEG SCH (10:00)
[2020-04-27] MEDS: TAMSULOSIN 0.4 MG CAPSULE PO SCH (10:01)
[2020-04-27] MEDS: ATAZANAVIR 300 MG PEG SCH (10:01)
[2020-04-27] MEDS: RALTEGRAVIR 400 MG TABLET PO SCH (10:01)
[2020-04-27] MEDS: OXYBUTYNIN 5 MG TABLET PEG SCH (10:01)
[2020-04-27] MEDS: SULFAMETHOX/TRIMETHOPRIM 800-160 MG TABLET PER TUBE SCH (10:01)
[2020-04-27] MEDS: ESCITALOPRAM 10 MG TABLET PEG SCH (10:01)
[2020-04-27] MEDS: RILPIVIRINE 25 MG PEG SCH (10:02)
[2020-04-27] MEDS: RITONAVIR 100 MG PO SCH (10:03)
[2020-04-27] MEDS: CHOLECALCIFEROL 1,000 UNIT TABLET PEG SCH (10:03)
[2020-04-27] MEDS ORDERED: diphenhydrAMINE 2% CREAM 28 GM TUBE TOP PRN (14:16)
[2020-04-27] MEDS: ACETAMINOPHEN 325 MG TABLET PO PRN (16:35)
[2020-04-27 16:51] VITALS: BP 152/89
== END 2020-04-27 16:43 | DRG 974 ==
LOC: EDUNIT# → EDBD → N.ED 13:33 → SUATTDRO 15:18 → N.EDINP 15:18 → N.4E 16:54
PROVIDERS: ADMIT Family Medicine; ATTEND Internal Medicine